=== PATIENT | male | born 1965 | race Caucasian/White ===

== ENCOUNTER 2020-06-15 10:25 | Outpatient (REF) | payer BC, SELFPAY ==
[2020-06-15 10:54] LABS: Estimated Average Glucose 120 mg/dL; Hemoglobin A1c % 5.8 %
[2020-06-15 11:42] LABS: Cholesterol 224 mg/dL; Glucose Fasting 115 mg/dL (60-99); HDL Cholesterol 57 mg/dL; LDL Cholesterol Calculated 140 mg/dl; Triglycerides 138 mg/dL
== END 2020-06-15 10:26 | disposition home or self-care (01) ==
LOC: HO.LNP 10:25
PROVIDERS: Visit Provider Internal Medicine
DX: E11.9 Type 2 diabetes mellitus without complications (principal)
CPT/HCPCS: 80061; 82947; 83036

== ENCOUNTER 2021-01-16 10:36 | Outpatient (REF) | payer BC, SELFPAY ==
[2021-01-16 10:40] LABS: MANUAL DIFF FLAG NO
[2021-01-16 10:58] LABS: Basophils Absolute Auto 0.1 X10*3/uL (0.0-0.2); Basophils Percent Auto 1.2 % (0-2); Eosinophils Absolute Auto 0.4 X10*3/uL (0.0-0.4); Eosinophils Percent Auto 5.2 % (0-4); Hematocrit 45.4 % (42.0-52.0); Hemoglobin 15.4 g/dl (14.0-18.0); Imm Gran Abs Auto 0.01 X10*3/uL (0.00-0.03); Imm Gran Pct Auto 0.1 % (0.0-0.4); Lymphocytes Absolute Auto 2.7 X10*3/uL (1.2-4.9); Lymphocytes Percent Auto 40.5 % (20-40); Mean Corpuscular HGB Conc 33.9 g/dl (31.0-36.0); Mean Corpuscular Hemoglobin 31.8 pg (27.0-33.0); Mean Corpuscular Volume 93.6 fL (80.0-98.0); Mean Platelet Volume 10.2 fL (9.4-12.4); Monocytes Absolute Auto 0.6 X10*3/uL (0.1-1.2); Monocytes Percent Auto 8.4 % (2-11); Neutrophils Absolute Auto 2.98 x10*3/uL (2.0-8.3); Neutrophils Percent Auto 44.6 % (45-73); Platelet Count 255 X10*3/uL (160-400); Red Blood Count 4.85 X10*6/uL (4.60-5.80); Red Cell Distribution Width 11.9 % (11.0-16.0); White Blood Count 6.7 X10*3/uL (4.8-10.8)
[2021-01-16 11:14] LABS: Estimated Average Glucose 157 mg/dL; Hemoglobin A1c % 7.1 %
[2021-01-16 11:23] LABS: Appearance Urine CLEAR; Color Urine YELLOW; Glucose Urine UA NEG (NEG); Leukocyte Esterase Urine NEG (NEG); Nitrite Urine NEG (NEG); Urine Blood NEG (NEG); Urine Ketones NEG (NEG); Urine Protein NEG (NEG-TRACE)
[2021-01-16 11:44] LABS: Alanine Aminotransferase 35 U/L (0-40); Albumin Level 4.3 g/dL (3.5-5.0); Alkaline Phosphatase 59 U/L (39-117); Anion Gap 13 (12-20); Aspartate Amino Transferase 29 U/L (5-37); Bilirubin Total 0.5 mg/dL (0.0-1.0); Blood Urea Nitrogen 11 mg/dL (9-16); Calcium 9.4 mg/dL (8.4-10.2); Carbon Dioxide 27 mmol/L (22-29); Chloride 108 mmol/L (96-108); Estimated Glomerular Filt Rate > 60; Glucose Fasting 135 mg/dL (60-99); Potassium 4.7 mmol/L (3.3-5.1); Sodium 143 mmol/L (135-145)
[2021-01-16 12:09] LABS: PSA,Total (Free>4and<10) 1.01 ng/mL (0.00-4.00)
[2021-01-16 12:16] LABS: Creatinine Urine 80.48 mg/dL; Microalbumin Urine < 5.0 mg/L
== END 2021-01-16 10:37 | disposition home or self-care (01) ==
LOC: HO.LNP 10:36
PROVIDERS: Visit Provider Internal Medicine
DX: Z00.00 Encounter for general adult medical examination without abnormal findings (principal); Z12.5 Encounter for screening for malignant neoplasm of prostate; D72.820 Lymphocytosis (symptomatic); E11.9 Type 2 diabetes mellitus without complications
CPT/HCPCS: 80053; 81003; 82043; 83036; 84153; 85025

== ENCOUNTER 2022-01-24 10:41 | Outpatient (REF) | payer BC, SELFPAY ==
[2022-01-24 10:44] LABS: MANUAL DIFF FLAG NO
[2022-01-24 11:08] LABS: Basophils Absolute Auto 0.1 X10*3/uL (0.0-0.2); Basophils Percent Auto 1.1 % (0-2); Eosinophils Absolute Auto 0.3 X10*3/uL (0.0-0.4); Eosinophils Percent Auto 4.3 % (0-4); Estimated Average Glucose 134 mg/dL; Hematocrit 45.3 % (42.0-52.0); Hemoglobin 15.6 g/dl (14.0-18.0); Hemoglobin A1c % 6.3 %; Imm Gran Abs Auto 0.02 X10*3/uL (0.00-0.03); Imm Gran Pct Auto 0.3 % (0.0-0.4); Lymphocytes Absolute Auto 2.3 X10*3/uL (1.2-4.9); Mean Corpuscular HGB Conc 34.4 g/dl (31.0-36.0); Mean Corpuscular Hemoglobin 33.3 pg (27.0-33.0); Mean Corpuscular Volume 96.6 fL (80.0-98.0); Mean Platelet Volume 10.3 fL (9.4-12.4); Monocytes Absolute Auto 0.6 X10*3/uL (0.1-1.2); Monocytes Percent Auto 9.3 % (2-11); Neutrophils Absolute Auto 2.9 x10*3/uL (2.0-8.3); Platelet Count 202 X10*3/uL (160-400); Red Blood Count 4.69 X10*6/uL (4.60-5.80); Red Cell Distribution Width 12.4 % (11.0-16.0); White Blood Count 6.1 X10*3/uL (4.8-10.8)
[2022-01-24 11:10] LABS: Appearance Urine Clear; Color Urine Yellow; Glucose Urine UA Negative (Negative); Leukocyte Esterase Urine Negative (Negative); Nitrite Urine Negative (Negative); PH 5.5 (5.0-9.0); Urine Blood Negative (Negative); Urine Ketones Negative (Negative); Urine Protein Negative (Neg-Trace)
[2022-01-24 11:13] LABS: Bacteria Urine None Seen (None Seen); Hyaline Casts Urine 0-2 /LPF (0-2); RBC Urine 0-2 /HPF (0-2); Squamous Epithelial Cell Urine 0-2 /HPF (0-2); WBC Urine 0-5 /HPF (0-5)
[2022-01-24 11:23] LABS: Alanine Aminotransferase 123 U/L (0-40); Albumin Level 4.6 g/dL (3.5-5.0); Alkaline Phosphatase 65 U/L (39-117); Anion Gap 17 (12-20); Aspartate Amino Transferase 135 U/L (5-37); Bilirubin Total 1.2 mg/dL (0.0-1.0); Blood Urea Nitrogen 12 mg/dL (9-16); Calcium 9.4 mg/dL (8.4-10.2); Carbon Dioxide 24 mmol/L (22-29); Chloride 104 mmol/L (96-108); Estimated Glomerular Filt Rate > 60; Glucose Fasting 159 mg/dL (60-99); Potassium 4.7 mmol/L (3.3-5.1); Sodium 140 mmol/L (135-145); Total Protein 7.6 g/dL (6.5-8.0)
[2022-01-24 11:38] LABS: PSA,Total (Free>4and<10) 1.01 ng/mL (0.00-4.00)
[2022-01-24 12:07] LABS: Creatinine Urine 42.94 mg/dL; Microalbumin Urine < 5.0 mg/L
== END 2022-01-24 10:42 | disposition home or self-care (01) ==
LOC: HO.LNP 10:41
PROVIDERS: Visit Provider Internal Medicine
DX: Z00.00 Encounter for general adult medical examination without abnormal findings (principal); D72.820 Lymphocytosis (symptomatic); E11.9 Type 2 diabetes mellitus without complications; Z12.5 Encounter for screening for malignant neoplasm of prostate
CPT/HCPCS: 80053; 81001; 82043; 83036; 84153; 85025

== ENCOUNTER 2022-02-25 09:08 | Outpatient (REF) | payer BC, SELFPAY | END 2022-02-25 09:09 | disposition home or self-care (01) | LOC: HO.HOSX 09:08 | PROVIDERS: Visit Provider Orthopaedic Surgery | DX: Z13.89 Encounter for screening for other disorder (principal) ==

== ENCOUNTER 2022-05-13 16:09 | Outpatient (REF) | payer BC, SELFPAY ==
--- NOTE | ~2022-05-13 | US_ITS ---
EXAMINATION: US ABDOMEN COMPLETE CLINICAL INFORMATION: Hepatomegaly. COMPARISON: None TECHNIQUE: Real-time imaging of the abdominal viscera. FINDINGS: PANCREAS: Normal. ABDOMINAL AORTA: The proximal, mid, and distal segments are normal in caliber. INFERIOR VENA CAVA: Visualized portions are normal. LIVER: The liver is enlarged. The liver contour is normal. There is increased hepatic echogenicity. There is no intrahepatic biliary duct dilatation seen. There is a right hepatic lobe cyst measuring 2.0 x 1.0 x 1.5 cm and a left hepatic lobe cyst measuring 1.0 x 0.7 x 0.8 cm. GALLBLADDER: The gallbladder is contracted. COMMON BILE DUCT: Normal in caliber measuring 0.5 cm in diameter. RIGHT KIDNEY: Normal. No hydronephrosis. No renal calculi or focal parenchymal lesions. The kidney measures 11.8 cm in maximum dimension. LEFT KIDNEY: Normal. No hydronephrosis. No renal calculi or focal parenchymal lesions. The kidney measures 9.6 cm in maximum dimension. SPLEEN: Normal. The spleen measures 9.6 cm in maximum dimension. FREE FLUID: None. US/US abdomen complete IMPRESSION: 1. Enlarged liver with increased hepatic echogenicity. 2. Right and left hepatic lobe cysts. 3. Contracted gallbladder.
== END 2022-05-13 16:10 | disposition home or self-care (01) ==
LOC: HO.US 16:09
PROVIDERS: PCP Internal Medicine; Visit Provider Internal Medicine
DX: R16.0 Hepatomegaly, not elsewhere classified (principal); R79.89 Other specified abnormal findings of blood chemistry
CPT/HCPCS: 76700

== ENCOUNTER 2022-05-17 11:19 | Outpatient (REF) | payer BC, SELFPAY ==
[2022-05-17 12:27] LABS: Alanine Aminotransferase 87 U/L (0-40); Albumin Level 4.1 g/dL (3.5-5.0); Alkaline Phosphatase 65 U/L (39-117); Aspartate Amino Transferase 68 U/L (5-37); Bilirubin Direct 0.2 mg/dL (0.0-0.5); Bilirubin Total 0.7 mg/dL (0.0-1.0); Total Protein 6.7 g/dL (6.5-8.0)
== END 2022-05-17 11:20 | disposition home or self-care (01) ==
LOC: HO.LNP 11:19
PROVIDERS: Visit Provider Internal Medicine
DX: R74.8 Abnormal levels of other serum enzymes (principal)
CPT/HCPCS: 80076

== ENCOUNTER 2022-06-11 09:08 | Outpatient (REF) | payer BC, SELFPAY ==
--- NOTE | ~2022-06-11 | US_ITS ---
EXAMINATION: US ABDOMEN LIMITED WITH LIVER ELASTOGRAPHY CLINICAL INFORMATION: Hepatomegaly. COMPARISON: Abdominal ultrasound dated 05/13/2022. TECHNIQUE: Real-time imaging of the abdominal viscera. Noninvasive ultrasound liver fibrosis assessment is performed using Flaco ElastPQ point quantification shear wave elastography (2D-SWE) with a C5-2 MHz transducer. Multiple elastography samples are obtained. FINDINGS: LIVER: Within the right hepatic lobe anteriorly, a 2.0 x 1.3 x 1.4 cm mildly complex cyst is seen, with fine septation. Within the left hepatic lobe, a 0.9 cm benign, simple cyst is seen. The liver demonstrates normal size, contour and generally increased echogenicity. No focal lesion or intrahepatic biliary duct dilatation. The right lobe measures 19.7 cm in length. The left lobe measures 11.3 cm in length. Portal flow is towards the liver (hepatopetal). Shear wave liver elastography median stiffness is 2.12 m/s (reference: normal median stiffness is 1.3 m/s or less). IQR/median stiffness to assess sampling precision is 0.04 (reference: good quality data set is IQR/median stiffness of 0.15 or less). FREE FLUID: None demonstrated. US/US abdomen oconnell w elastography IMPRESSION: 1. There is generalized increase in hepatic echotexture, consistent with fatty infiltration or hepatocellular disease. Please correlate clinically. No focal hepatic mass or intrahepatic biliary dilatation is seen. 2. Stable hepatic cysts are redemonstrated, as detailed. 3. Liver elastography: Measuremensts are consistent with compensated advanced chronic liver disease. REFERENCE: Society of Radiologists in Ultrasound Liver Stiffness Thresholds (2020): LIVER STIFFNESS THRESHOLDS: *Liver Stiffness equal or less than 1.3 m/s: High probability of being normal. *Liver Stiffness less than 1.7 m/s: In the absence of other known clinical signs, rules out compensated advanced chronic liver disease. *Liver Stiffness 1.7-2.1 m/s: Suggestive of compensated advanced chronic liver disease but need further test for confirmation. *Liver Stiffness over 2.1 m/s: Rules in compensated advanced chronic liver disease. *Liver Stiffness over 2.4 m/s: Suggestive of clinically significant portal hypertension. QUALITY OF DATA SET: *IQR/Median value equal or less than 0.15 implies a quality data set. *IQR/Median value over 0.15 implies a poor quality data set. SIGNIFICANT CHANGE FROM PRIOR EXAM: Significant change if liver stiffness measurement is 10% or greater from prior exam. OTHER CONSIDERATIONS: The stage of liver fibrosis may be overestimated in the setting of acute hepatitis, liver inflammation, elevated liver function tests, hepatic vascular congestion, obstructive cholestasis, non-fasting state, and infiltrative diseases such as amyloidosis and lymphoma. In some patients with NAFLD, the liver stiffness thresholds for compensated advanced chronic liver disease may be lower. In causes other than viral hepatitis and NAFLD, liver stiffness thresholds are not well established.
== END 2022-06-11 09:09 | disposition home or self-care (01) ==
LOC: HO.US 09:08
PROVIDERS: PCP Internal Medicine; Visit Provider Internal Medicine
DX: R16.0 Hepatomegaly, not elsewhere classified (principal)
CPT/HCPCS: 76705; 76981

== ENCOUNTER 2022-08-06 10:49 | Outpatient (REF) | payer BC, SELFPAY ==
[2022-08-06 11:20] LABS: Alanine Aminotransferase 67 U/L (0-40); Albumin Level 4.4 g/dL (3.5-5.0); Alkaline Phosphatase 79 U/L (39-117); Aspartate Amino Transferase 37 U/L (5-37); Bilirubin Direct 0.3 mg/dL (0.0-0.5); Bilirubin Total 0.9 mg/dL (0.0-1.0); Total Protein 7.3 g/dL (6.5-8.0)
== END 2022-08-06 10:50 | disposition home or self-care (01) ==
LOC: HO.LNP 10:49
PROVIDERS: Visit Provider Internal Medicine
DX: R74.8 Abnormal levels of other serum enzymes (principal)
CPT/HCPCS: 80076

== ENCOUNTER 2022-10-29 11:49 | Outpatient (REF) | payer BC, SELFPAY ==
[2022-10-29 12:41] LABS: Alanine Aminotransferase 85 U/L (0-40); Albumin Level 4.2 g/dL (3.5-5.0); Alkaline Phosphatase 55 U/L (39-117); Aspartate Amino Transferase 58 U/L (5-37); Bilirubin Direct 0.2 mg/dL (0.0-0.5); Bilirubin Total 0.6 mg/dL (0.0-1.0); Total Protein 7.3 g/dL (6.5-8.0)
== END 2022-10-29 11:50 | disposition home or self-care (01) ==
LOC: HO.LNP 11:49
PROVIDERS: Visit Provider Internal Medicine
DX: N52.9 Male erectile dysfunction, unspecified (principal)
CPT/HCPCS: 80076

== ENCOUNTER 2022-12-09 11:24 | Outpatient (REF) | payer BC, SELFPAY ==
[2022-12-09 11:45] LABS: Estimated Average Glucose 272 mg/dL; Hemoglobin A1c % 11.1 % (<6.0)
[2022-12-09 12:21] LABS: Glucose Fasting 309 mg/dL (60-99)
[2022-12-10 05:29] LABS: HBS Num1 0.27 mIU/mL (0-7.99); HBc Num1 0.09 S/CO (0.00-0.79); HBsAGNum1 0.31 S/CO (0.00-0.99); Hepatitis A Antibody IgM 0.13 Index (0-0.79); Hepatitis B Core Antibody Nonreactive (Nonreactive); Hepatitis B Surface Antigen Negative (Negative); ~HepC Num1 0.06 S/CO (0.00-0.79); ~Hepatitis A Antibody IgM Nonreactive (Nonreactive); ~Hepatitis B Surface Antibody NONREACTIVE (Nonreactive); ~Hepatitis C Antibody Nonreactive (Nonreactive)
== END 2022-12-09 11:25 | disposition home or self-care (01) ==
LOC: HO.LNP 11:24
PROVIDERS: Visit Provider Internal Medicine
DX: E11.9 Type 2 diabetes mellitus without complications (principal); R74.8 Abnormal levels of other serum enzymes
CPT/HCPCS: 82947; 83036; 86704; 86706; 86709; 86803; 87340

== ENCOUNTER 2022-12-18 15:13 | Outpatient (REF) | payer BC, SELFPAY ==
[2022-12-18 15:32] LABS: MANUAL DIFF FLAG NO
[2022-12-18 15:41] LABS: Basophils Absolute Auto 0.1 X10*3/uL (0.0-0.2); Basophils Percent Auto 0.8 % (0-2); Eosinophils Absolute Auto 0.1 X10*3/uL (0.0-0.4); Eosinophils Percent Auto 1.5 % (0-4); Hematocrit 44.1 % (42.0-52.0); Hemoglobin 15.3 g/dl (14.0-18.0); Imm Gran Abs Auto 0.03 X10*3/uL (0.00-0.03); Imm Gran Pct Auto 0.3 % (0.0-0.4); Lymphocytes Absolute Auto 3.7 X10*3/uL (1.2-4.9); Lymphocytes Percent Auto 42.8 % (20-40); Mean Corpuscular HGB Conc 34.7 g/dl (31.0-36.0); Mean Corpuscular Hemoglobin 32.1 pg (27.0-33.0); Mean Corpuscular Volume 92.5 fL (80.0-98.0); Mean Platelet Volume 9.5 fL (9.4-12.4); Monocytes Absolute Auto 0.6 X10*3/uL (0.1-1.2); Monocytes Percent Auto 6.4 % (2-11); Neutrophils Absolute Auto 4.2 x10*3/uL (2.0-8.3); Neutrophils Percent Auto 48.2 % (45-73); Platelet Count 220 X10*3/uL (160-400); Red Blood Count 4.77 X10*6/uL (4.60-5.80); Red Cell Distribution Width 12.2 % (11.0-16.0); White Blood Count 8.6 X10*3/uL (4.8-10.8)
[2022-12-18 15:44] LABS: INTERNATIONAL NORM RATIO 0.9 (0.9-1.1)
[2022-12-18 17:00] LABS: Alanine Aminotransferase 95 U/L (0-40); Alkaline Phosphatase 74 U/L (39-117); Aspartate Amino Transferase 65 U/L (5-37); Bilirubin Direct 0.2 mg/dL (0.0-0.5); Bilirubin Total 0.8 mg/dL (0.0-1.0); Iron 114 mcg/dL (45-160); Percent Iron Saturation 33 % (15-50); Total Iron Binding Capacity 349 mcg/dL (228-428); Total Protein 8.6 g/dL (6.5-8.0); Unsaturated Iron Binding 235 ug/dL
[2022-12-18 17:06] LABS: Ferritin 338 ng/mL (20-250)
[2022-12-23 13:59] LABS: Anti Nuclear Antibody Screen NEGATIVE (NEGATIVE)
[2022-12-24 09:58] LABS: Alpha 1 Anti-trypsin 139 mg/dL (83-199)
[2022-12-24 14:43] LABS: Mitochondrial Antibodies NEGATIVE (NEGATIVE)
[2022-12-24 22:18] LABS: FIB-ALT 81 U/L (9-46); FIB-Alpha-2-Macroglobulin 277 mg/dL (106-279); FIB-Apolipoprotein A1 173 mg/dL (94-176); FIB-GGT 43 U/L (3-85); FIB-Haptoglobin 148 mg/dL (43-212); FIB-Total Bilirubin 0.7 mg/dL (0.2-1.2); Liver Fibrosis Score 0.41; Liver Fibrosis Stage F1-F2; Nec Inflam Act Grade A2; Nec Inflam Act Score 0.52
[2022-12-26 00:14] LABS: Smooth Muscle Antibody <20 U (<20)
== END 2022-12-18 15:14 | disposition home or self-care (01) ==
LOC: HO.LAB 15:13
PROVIDERS: PCP Internal Medicine; Visit Provider Internal Medicine
DX: K76.0 Fatty (change of) liver, not elsewhere classified (principal); R79.89 Other specified abnormal findings of blood chemistry
CPT/HCPCS: 36415; 80076; 81596; 82103; 82728; 83540; 85025; 85610; 86015; 86038; 86381

== ENCOUNTER 2023-02-04 10:42 | Outpatient (REF) | payer BC, SELFPAY ==
[2023-02-04 11:07] LABS: Appearance Urine Clear; Color Urine Yellow; Glucose Urine UA Negative (Negative); Leukocyte Esterase Urine Negative (Negative); Nitrite Urine Negative (Negative); PH 5.5 (5.0-9.0); Urine Blood Negative (Negative); Urine Ketones Negative (Negative); Urine Protein Negative (Neg-Trace)
[2023-02-04 11:09] LABS: Basophils Absolute Auto 0.1 X10*3/uL (0.0-0.2); Basophils Percent Auto 0.7 % (0-2); Eosinophils Absolute Auto 0.2 X10*3/uL (0.0-0.4); Eosinophils Percent Auto 2.4 % (0-4); Hematocrit 43.6 % (42.0-52.0); Hemoglobin 14.3 g/dl (14.0-18.0); Imm Gran Abs Auto 0.02 X10*3/uL (0.00-0.03); Imm Gran Pct Auto 0.2 % (0.0-0.4); Lymphocytes Absolute Auto 5.4 X10*3/uL (1.2-4.9); Lymphocytes Percent Auto 59.1 % (20-40); MANUAL DIFF FLAG SCAN; Mean Corpuscular HGB Conc 32.8 g/dl (31.0-36.0); Mean Corpuscular Hemoglobin 31.2 pg (27.0-33.0); Mean Platelet Volume 10.5 fL (9.4-12.4); Monocytes Absolute Auto 0.6 X10*3/uL (0.1-1.2); Monocytes Percent Auto 6.1 % (2-11); Neutrophils Absolute Auto 2.9 x10*3/uL (2.0-8.3); Platelet Count 181 X10*3/uL (160-400); Red Blood Count 4.59 X10*6/uL (4.60-5.80); Red Cell Distribution Width 12.3 % (11.0-16.0); SCAN SMEAR FLAG 1; White Blood Count 9.2 X10*3/uL (4.8-10.8)
[2023-02-04 11:11] LABS: Bacteria Urine None Seen (None Seen); Hyaline Casts Urine 0-2 /LPF (0-2); RBC Urine 0-2 /HPF (0-2); Squamous Epithelial Cell Urine 0-2 /HPF (0-2); WBC Urine 0-5 /HPF (0-5)
[2023-02-04 11:29] LABS: Alanine Aminotransferase 28 U/L (0-40); Albumin Level 4.5 g/dL (3.5-5.0); Alkaline Phosphatase 44 U/L (39-117); Anion Gap 11 (12-20); Aspartate Amino Transferase 30 U/L (5-37); Bilirubin Total 1.2 mg/dL (0.0-1.0); Blood Urea Nitrogen 11 mg/dL (9-16); Calcium 9.9 mg/dL (8.4-10.2); Carbon Dioxide 29 mmol/L (22-29); Chloride 104 mmol/L (96-108); Cholesterol 211 mg/dL (<200); Estimated Glomerular Filt Rate > 60; Glucose Fasting 97 mg/dL (60-99); HDL Cholesterol 50 mg/dL (>40); LDL Cholesterol Calculated 141 mg/dL (<100); Potassium 4.2 mmol/L (3.3-5.1); Sodium 140 mmol/L (135-145); Total Protein 7.5 g/dL (6.5-8.0); Triglycerides 100 mg/dL (<150)
[2023-02-04 11:41] LABS: PSA,Total (Free>4and<10) 1.21 ng/mL (0.00-4.00)
[2023-02-04 11:47] LABS: Creatinine Urine 74.51 mg/dL; Microalbumin Urine < 5.0 mg/L
[2023-02-04 11:50] LABS: Neutrophils Percent Auto 31.5 % (45-73); SLIDE REVIEW VERIFIED
== END 2023-02-04 10:43 | disposition home or self-care (01) ==
LOC: HO.LNP 10:42
PROVIDERS: Visit Provider Internal Medicine
DX: Z00.00 Encounter for general adult medical examination without abnormal findings (principal); Z12.5 Encounter for screening for malignant neoplasm of prostate; E11.9 Type 2 diabetes mellitus without complications; D72.820 Lymphocytosis (symptomatic)
CPT/HCPCS: 80053; 80061; 81001; 82043; 82570; 84153; 85025

== ENCOUNTER 2023-03-24 10:53 | Outpatient (REF) | payer BC, SELFPAY ==
[2023-03-24 11:06] LABS: MANUAL DIFF FLAG NO
[2023-03-24 11:08] LABS: Basophils Absolute Auto 0.1 X10*3/uL (0.0-0.2); Basophils Percent Auto 0.7 % (0-2); Eosinophils Absolute Auto 0.3 X10*3/uL (0.0-0.4); Eosinophils Percent Auto 2.7 % (0-4); Hematocrit 44.2 % (42.0-52.0); Imm Gran Abs Auto 0.04 X10*3/uL (0.00-0.03); Imm Gran Pct Auto 0.4 % (0.0-0.4); Lymphocytes Absolute Auto 4.4 X10*3/uL (1.2-4.9); Lymphocytes Percent Auto 42.4 % (20-40); Mean Corpuscular HGB Conc 33.9 g/dl (31.0-36.0); Mean Corpuscular Hemoglobin 31.8 pg (27.0-33.0); Mean Corpuscular Volume 93.6 fL (80.0-98.0); Mean Platelet Volume 10.5 fL (9.4-12.4); Monocytes Absolute Auto 0.8 X10*3/uL (0.1-1.2); Neutrophils Absolute Auto 4.8 x10*3/uL (2.0-8.3); Neutrophils Percent Auto 45.8 % (45-73); Platelet Count 205 X10*3/uL (160-400); Red Blood Count 4.72 X10*6/uL (4.60-5.80); Red Cell Distribution Width 12.8 % (11.0-16.0); White Blood Count 10.5 X10*3/uL (4.8-10.8)
== END 2023-03-24 10:54 | disposition home or self-care (01) ==
LOC: HO.LNP 10:53
PROVIDERS: Visit Provider Internal Medicine
DX: D72.820 Lymphocytosis (symptomatic) (principal)
CPT/HCPCS: 85025

== ENCOUNTER 2023-07-11 15:38 | Outpatient (REF) | payer BC, SELFPAY ==
[2023-07-11 16:03] LABS: Alanine Aminotransferase 107 U/L (0-40); Albumin Level 4.6 g/dL (3.5-5.0); Alkaline Phosphatase 52 U/L (39-117); Aspartate Amino Transferase 74 U/L (5-37); Bilirubin Direct 0.2 mg/dL (0.0-0.5); Bilirubin Total 0.6 mg/dL (0.0-1.0); Total Protein 7.7 g/dL (6.5-8.0)
== END 2023-07-11 15:39 | disposition home or self-care (01) ==
LOC: HO.LNP 15:38
PROVIDERS: Visit Provider Internal Medicine
DX: R79.89 Other specified abnormal findings of blood chemistry (principal)
CPT/HCPCS: 80076

== ENCOUNTER 2023-09-12 09:55 | Outpatient (REF) | payer BC, SELFPAY ==
[2023-09-12 10:59] LABS: Alanine Aminotransferase 40 U/L (0-40); Albumin Level 4.5 g/dL (3.5-5.0); Alkaline Phosphatase 51 U/L (39-117); Aspartate Amino Transferase 46 U/L (5-37); Bilirubin Direct 0.3 mg/dL (0.0-0.5); Bilirubin Total 0.9 mg/dL (0.0-1.0); Total Protein 7.3 g/dL (6.5-8.0)
== END 2023-09-12 09:56 | disposition home or self-care (01) ==
LOC: HO.LNP 09:55
PROVIDERS: Visit Provider Internal Medicine
DX: R79.89 Other specified abnormal findings of blood chemistry (principal)
CPT/HCPCS: 80076

== ENCOUNTER 2024-04-19 07:30 | Outpatient (REF) | payer BC, SELFPAY ==
[2024-04-19 11:36] LABS: Basophils Absolute Auto 0.1 X10*3/uL (0.0-0.2); Basophils Percent Auto 0.7 % (0-2); Eosinophils Absolute Auto 0.3 X10*3/uL (0.0-0.4); Eosinophils Percent Auto 2.7 % (0-4); Hematocrit 44.7 % (42.0-52.0); Hemoglobin 14.8 g/dl (14.0-18.0); Imm Gran Abs Auto 0.03 X10*3/uL (0.00-0.03); Imm Gran Pct Auto 0.3 % (0.0-0.4); Lymphocytes Percent Auto 66.9 % (20-40); MANUAL DIFF FLAG SCAN; Mean Corpuscular HGB Conc 33.1 g/dl (31.0-36.0); Mean Corpuscular Hemoglobin 31.8 pg (27.0-33.0); Mean Corpuscular Volume 95.9 fL (80.0-98.0); Mean Platelet Volume 10.2 fL (9.4-12.4); Monocytes Absolute Auto 0.6 X10*3/uL (0.1-1.2); Monocytes Percent Auto 4.9 % (2-11); Neutrophils Absolute Auto 2.9 x10*3/uL (2.0-8.3); Neutrophils Percent Auto 24.5 % (45-73); Platelet Count 205 X10*3/uL (160-400); Red Blood Count 4.66 X10*6/uL (4.60-5.80); Red Cell Distribution Width 13.1 % (11.0-16.0); SCAN SMEAR FLAG 1; White Blood Count 11.8 X10*3/uL (4.8-10.8)
[2024-04-19 11:37] LABS: Lymphocytes Absolute Auto 7.9 X10*3/uL (1.2-4.9)
[2024-04-19 11:38] LABS: Appearance Urine Clear; Color Urine Yellow; Glucose Urine UA Negative (Negative); Leukocyte Esterase Urine Negative (Negative); Nitrite Urine Negative (Negative); PH 5.5 (5.0-9.0); Specific Gravity - Urine 1.025 (1.005-1.025); Urine Blood Negative (Negative); Urine Ketones Negative (Negative); Urine Protein Negative (Neg-Trace)
[2024-04-19 12:05] LABS: Estimated Average Glucose 114 mg/dL; Hemoglobin A1C 148.0223 umol/L; Hemoglobin A1c % 5.6 % (<6.0); Total Hemoglobin (HGBA1C) 3883.5507 umol/L
[2024-04-19 12:19] LABS: SLIDE REVIEW VERIFIED
--- OUTSIDE RECORDS SUMMARY | 2024-04-19 12:24 | XMS_ITS ---
Author Name [facility] Organization Unknown Assessment and Plan ID Update Date Source Alert Text [facility] - [id number] 95 01/05/2022 [facility] - [id number] COVID Vaccination: This patient has received the MOD, COVID-19, mRNA, Bivalent, 0.5 or 0.25mL vaccination on 01/05/2022 with lot number [id number] at [facility] [address] [place] [address].
[2024-04-19 12:27] LABS: Alanine Aminotransferase 97 U/L (0-40); Albumin Level 4.4 g/dL (3.5-5.0); Alkaline Phosphatase 46 U/L (39-117); Anion Gap 13 (12-20); Aspartate Amino Transferase 57 U/L (5-37); Bilirubin Total 0.8 mg/dL (0.0-1.0); Blood Urea Nitrogen 19 mg/dL (9-16); Carbon Dioxide 26 mmol/L (22-29); Chloride 105 mmol/L (96-108); Cholesterol 185 mg/dL (<200); Estimated Glomerular Filt Rate > 60; Glucose Fasting 122 mg/dL (60-99); HDL Cholesterol 54 mg/dL (>40); LDL Cholesterol Calculated 112 mg/dL (<100); Potassium 4.1 mmol/L (3.3-5.1); Sodium 140 mmol/L (135-145); Total Protein 7.6 g/dL (6.5-8.0); Triglycerides 98 mg/dL (<150)
[2024-04-19 12:29] LABS: PSA,Total (Free>4and<10) 0.82 ng/mL (0.00-4.00)
[2024-04-19 12:50] LABS: Creatinine Urine 94.33 mg/dL; Microalbumin Urine < 5.0 mg/L
== END 2024-04-19 07:31 | disposition home or self-care (01) ==
LOC: HO.LNP 07:30
PROVIDERS: Visit Provider Internal Medicine
DX: Z00.00 Encounter for general adult medical examination without abnormal findings (principal); E11.9 Type 2 diabetes mellitus without complications; D72.820 Lymphocytosis (symptomatic); Z12.5 Encounter for screening for malignant neoplasm of prostate
CPT/HCPCS: 80053; 80061; 81003; 82043; 82570; 83036; 84153; 85025

== ENCOUNTER 2024-04-26 12:56 | Outpatient (REF) | payer BC, SELFPAY ==
[2024-04-26 13:02] LABS: Basophils Absolute Auto 0.1 X10*3/uL (0.0-0.2); Basophils Percent Auto 0.6 % (0-2); Eosinophils Absolute Auto 0.3 X10*3/uL (0.0-0.4); Eosinophils Percent Auto 3.1 % (0-4); Hematocrit 41.1 % (42.0-52.0); Hemoglobin 13.7 g/dl (14.0-18.0); Imm Gran Abs Auto 0.02 X10*3/uL (0.00-0.03); Imm Gran Pct Auto 0.2 % (0.0-0.4); Lymphocytes Absolute Auto 6.6 X10*3/uL (1.2-4.9); Lymphocytes Percent Auto 61.3 % (20-40); MANUAL DIFF FLAG SCAN; Mean Corpuscular HGB Conc 33.3 g/dl (31.0-36.0); Mean Platelet Volume 10.1 fL (9.4-12.4); Monocytes Absolute Auto 0.6 X10*3/uL (0.1-1.2); Monocytes Percent Auto 5.9 % (2-11); Neutrophils Absolute Auto 3.1 x10*3/uL (2.0-8.3); Neutrophils Percent Auto 28.9 % (45-73); Platelet Count 216 X10*3/uL (160-400); Red Blood Count 4.28 X10*6/uL (4.60-5.80); Red Cell Distribution Width 12.8 % (11.0-16.0); SCAN SMEAR FLAG 1; White Blood Count 10.8 X10*3/uL (4.8-10.8)
[2024-04-26 13:14] LABS: Albumin Level 4.6 g/dL (3.5-5.0); Alkaline Phosphatase 56 U/L (39-117); Aspartate Amino Transferase 68 U/L (5-37); Bilirubin Direct 0.2 mg/dL (0.0-0.5); Bilirubin Total 0.4 mg/dL (0.0-1.0); Total Protein 7.8 g/dL (6.5-8.0)
[2024-04-26 13:23] LABS: SLIDE REVIEW VERIFIED
[2024-04-26 13:28] LABS: Alanine Aminotransferase 76 U/L (0-40)
--- OUTSIDE RECORDS SUMMARY | 2024-04-26 14:00 | XMS_ITS ---
Author Organization [facility] Address [address] [place] [address] Care Team Providers Care Legal Billing Coordinator Name Role Phone Carmelo Phelps MD Primary Care Provider Aristeo Fleming Unavailable [phone] ALLERGIES No Known Allergies RESULTS Component Value Reference Range Notes Prothrombin Time INR Reviewed date:12/18/2022 04:56:14 PM Interpretation: Performing Lab:[facility], [address] [place] [phone] Notes/Report: Prothrombin Time 11.0 11.1-13.3 SEC INTERNATIONAL NORM RATIO 0.9 0.9-1.1 INTERNATIONAL NORMALIZED RATIO (INR) REFERENCE RANGES Reference Range For patients not on anticoagulant therapy: 0.9 - 1.1 INR ranges for oral anticoagulant therapy: For prevention and treatment of venous thrombosis and pulmonary embolism: 2.0 - 3.0 For acute myocardial infarction with aspirin therapy: 2.0 - 3.0 For acute myocardial infarction without aspirin therapy: 3.0 - 4.0 For patients with mechanical prosthetic heart valves: 2.5 - 3.5 Ferritin Reviewed date:12/18/2022 10:20:08 PM Interpretation: Performing Lab:[facility], [address] [place] [phone] Notes/Report: Ferritin 338 20-250 ng/mL Alpha 1 Anti-trypsin Reviewed date:12/25/2022 09:21:20 PM Interpretation: Performing Lab:[facility], [address] [place] [phone] Notes/Report: Alpha 1 Anti-trypsin 139 83-199 mg/dL THIS TEST WAS PERFORMED AT: [facility] [address] [place] [phone] BJORN MCCORMICK MD Liver Fibrosis Pnl Reviewed date:12/25/2022 09:21:54 PM Interpretation: Performing Lab:[facility], [address] [place] [phone] Notes/Report: Liver Fibrosis Score 0.41 Liver Fibrosis Stage F1-F2 Liver Fibrosis Interpretation SEE NOTE minimal fibrosis Fibro Test Score (f) Metavir Score f>=0 and f<=0.21 : F0 (no fibrosis) f>0.21 and f<=0.27 : F0-F1 (no fibrosis) f>0.27 and f<=0.31 : F1 (minimal fibrosis) f>0.31 and f<=0.48 : F1-F2 (minimal fibrosis) f>0.48 and f<=0.58 : F2 (moderate fibrosis) f>0.58 and f<=0.72 : F3 (advanced fibrosis) f>0.72 and f<=0.74 : F3-F4 (advanced fibrosis) f>0.74 and f<=1.00 : F4 (severe fibrosis) Nec Inflam Act Score 0.52 Nec Inflam Act Grade A2 Nec Inflam Act Interpretation SEE NOTE significant activity ActiTest Score (a) Metavir Score a>=0 and a<=0.17 : A0 (no activity) a>0.17 and a<=0.29 : A0-A1 (no activity) a>0.29 and a<=0.36 : A1 (minimal activity) a>0.36 and a<=0.52 : A1-A2 (minimal activity) a>0.52 and a<=0.60 : A2 (significant activity) a>0.60 and a<=0.62 : A2-A3 (significant activity) a>0.62 and a<=1.00 : A3 (severe activity) FFO-Uzkeg-8-Macroglobulin 277 106-279 mg/dL FIB-Haptoglobin 148 43-212 mg/dL FIB-Apolipoprotein A1 173 94-176 mg/dL FIB-Total Bilirubin 0.7 0.2-1.2 mg/dL FIB-GGT 43 3-85 U/L FIB-ALT 81 9-46 U/L Reference ID [id number] Footnote SEE NOTE The reliability of results is dependent on compliance with the preanalytical and analytical conditions recommended by [employer]. The tests have to be deferred for: acute hemolysis, acute hepatitis, acute inflammation, extra hepatic cholestasis. The advice of a specialist should be sought for interpretation in chronic hemolysis and Gilbert's syndrome. The test interpretation is not validated in liver transplant patients. Isolated extreme values of one of the components should lead to caution in interpreting the results. In case of discordance between a biopsy result and a test, it is recommended to seek the advice of a specialist. The causes of these discordances could be due to a flaw of the test or to a flaw in the biopsy: i.e. a liver biopsy has a 33% variability rate for one fibrosis stage. FibroTest is interpretable for chronic hepatitis B and C, alcoholic and non alcoholic steatosis. ActiTest is interpretable for chronic hepatitis B and C. The performance characteristics have been determined by [facility]. It has not been cleared or approved by the U.S. Food and Drug Administration. Performance characteristics refer to the analytical performance of the test. [employer], [employer], the associated logo, Garmor and all associated [employer] agrawal are the registered trademarks of [employer]. All third alliance party agrawal - (R) and (TM) - are the property of their respective owners. (C) [id number] [employer]. All rights reserved. THIS TEST WAS PERFORMED AT: [employer] [facility] [address] [place] [address] CATHY ISRAEL MD,PHD,ELIAS Mitochondrial Antibody Reviewed date:12/26/2022 01:07:04 PM Interpretation: Performing Lab:[address] [phone] Notes/Report: Mitochondrial Antibodies NEGATIVE NEGATIVE THIS TEST WAS PERFORMED AT: [employer] [address] [phone] BJORN MCCOMRICK MD Mitochondrial Ab Titer TNP Smooth Muscle Antibody Reviewed date:12/26/2022 01:06:55 PM Interpretation: Performing Lab:[address] [phone] Notes/Report: Smooth Muscle Antibody <20 <20 U Reference Range: <20 U: Negative >or=20 U: Positive Antibodies recognizing actin are the main component of smooth muscle antibodies associated with auto- immune liver disease. Actin antibodies are found in approximately 75% of patients with autoimmune hepatitis (AIH) type 1, approximately 65% of patients with autoimmune cholangitis, approximately 30% of patients with primary biliary cirrhosis and approximately 2% of healthy controls. High values are closely correlated with AIH type 1. THIS TEST WAS PERFORMED AT: [employer]/[address] JOANNE CUNNINGHAM MD,PHD REASON FOR VISIT Patient presents today for an enlarged liver. MEDICATIONS Medication SIG (Take, Route, Frequency, Duration) Notes Start Date End Date Status Januvia 50 MG TAKE 1 TABLET BY MOUTH ONCE DAILY DIRECTED Oral for 30 E119,Unavailable Active Fish Oil 1000 MG 1 capsule Orally Onc e a day Active Vitamin B + C Complex - as directed Orally Active Vitamin D 50 MCG (2000 UT) 1 tablet Orally Once a day for 30 day(s) Active metFORMIN HCl ER 750 MG TAKE 1 TABLET BY MOUTH EVERY DAY WITH THE EVENING MEAL Oral for 30 E119,Unavailable Active Tadalafil 20 MG TAKE 1/2 TABLET BY MOUTH ONCE A DAY NEEDED. Oral for 60 Active SOCIAL HISTORY Sex Assigned At : Social History Observation Description Sex Assigned At Unknown Alcohol Screen Question Answer Notes Did you have a drink contain ing alcohol in the past year? Yes How often did you have a dri nk containing alcohol in the past year? 4 or more times a week (4 points) How many drinks did you have on a typical day when you were drinking in the past year? 5 or 6 drinks (2 points) How often did you have 6 or more drinks on one occasion in the past year? Monthly (2 points) Points 8 Interpretation Positive PROBLEMS Problem Type ICD Code Onset Dates Problem Status W/U Status Risk SNOMED Code Notes Problem Fatty liver (K76.0) Active confirmed 369415800 Problem Elevated liver function tests (R79.89) Active confirmed 168268809 VITAL SIGNS BMI 25.43 kg/m2 12/18/2022 Blood pressure systolic 000 mm Hg 12/19/19 23 Blood pressure diastolic 00 mm Hg 023 Height 74 in 12/18/2022 Temperature 98.6 degrees Fahrenheit 12/19/19 23 Weight 198 lb 2 oz lbs 12/18/2022 Encounters Encounter Location Date Provider Diagnosis [facility] [address] [place] [address] 12/18/2022 Aristeo Mercado Fatty liver K76.0 and Elevated liver function tests R79.89 ASSESSMENTS Encounter Date Diagnosis Assessment Notes Treatment Notes Treatment Clinical Notes 12/18/2022 Fatty liver (ICD-10 - K76.0) You need to keep the diabetes tightly controlled, eliminate alcohol completely, lose weight, and watch diet in order to help the liver 12/18/2022 Elevated liver function tests (ICD-10 - R79.89) PLAN OF TREATMENT Treatment Notes Assessment Notes Fatty liver You need to keep the diabetes tightly controlled, eliminate alcohol completely, lose weight, and watch diet in order to help the liver Pending Test Test Name Order Date LIVER PROFILE 12/18/2022 IRON + IBC (FE) 12/18/2022 CBC w DIFF 12/18/2022 FLUOR. ANTINUCLEAR AB SCREEN (CHASTITY) 06/2022 Next Appt Details Follow Up: 6 Months, Reason: Provider Name:Aristeo eMrcado , 07/14/2024 01:00:00 PM, [address], [address], [place], [address], Progress Notes * Examination Category Sub-Category Detail Notes General Examination GENERAL APPEARANCE: pleasant , well nourished, well developed, in no acute distress EYES: sclera non-icteric NECK/THYROID: no cervical lymphade nopathy, neck supple HEART: S1, S2 normal LUNGS: clear to auscultatio n bilaterally ABDOMEN: normal bowel sounds, no guarding or rigidity, no hepatosplenomegaly, no masses palpable, soft, nontender, nondistended. NEUROLOGIC: alert and oriented SKIN: nonjaundiced, no spi issa angiomata. EXTREMITIES: no edema ORAL CAVITY: mucosa moist
--- OUTSIDE RECORDS SUMMARY | 2024-04-26 14:01 | XMS_ITS | Patient Health Record ---
Author Organization [facility] Address [address] [place] [address] Care Team Providers Care Diesel Truck Technician Name Role Phone Carmelo Phelps MD Primary Care Provider Aristeo Fleming Unavailable [phone] ALLERGIES No Known Allergies REASON FOR REFERRAL No Information MEDICATIONS Medication SIG (Take, Route, Frequency, Duration) Notes Start Date End Date Status metFORMIN HCl ER 750 MG TAKE 1 TABLET BY MOUTH EVERY DAY WITH THE EVENING MEAL Oral for 30 E119,Unavailable Active Fish Oil 1000 MG 1 capsule Orally Onc e a day Active Januvia 50 MG TAKE 1 TABLET BY MOUTH ONCE DAILY DIRECTED Oral for 30 E119,Unavailable Active Vitamin D 50 MCG (2000 UT) 1 tablet Orally Once a day for 30 day(s) Active Vitamin B + C Complex - as directed Orally Active IMMUNIZATIONS Vaccine Route Administration Date Status Comme nts Influenza Unknown 12/16/2022 Administered SOCIAL HISTORY Sex Assigned At : Social History Observation Description Sex Assigned At Unknown Alcohol Screen Question Answer Notes Did you have a drink contain ing alcohol in the past year? Yes How often did you have a dri nk containing alcohol in the past year? 2 to 3 times a week (3 points) How many drinks did you have on a typical day when you were drinking in the past year? 1 or 2 drinks (0 point) How often did you have 6 or more drinks on one occasion in the past year? Never (0 point) Points 3 Interpretation Negative PROBLEMS Problem Type ICD Code Onset Dates Problem Status W/U Status Risk SNOMED Code Notes Problem Elevated liver function tests (R79.89) Active confirmed 036459867 Problem Fatty liver (K76.0) Active confirmed 941535145 VITAL SIGNS Blood pressure diastolic 00 mm Hg 07/08/2023 Height 74 in 07/08/2023 Blood pressure systolic 00 mm Hg 07/08/2023 Weight 200 lbs 07/08/2023 BMI 25.68 kg/m2 07/08/2023 Encounters Encounter Location Date Provider Diagnosis [facility] [address] [place] [address] 07/08/2023 Aristeo Mercado Fatty liver K76.0 and Elevated liver function tests R79.89 ASSESSMENTS Encounter Date Diagnosis Assessment Notes Treatment Notes Treatment Clinical Notes 07/08/2023 Elevated liver function tests (ICD-10 - R79.89) 07/08/2023 Fatty liver (ICD-10 - K76.0) Continue complete avoidance of alcohol, eating healthy, losing weight, and exercising. PLAN OF TREATMENT Pending Test Test Name Order Date LIVER PROFILE 07/08/2023 LIVER PROFILE 12/18/2022 IRON + IBC (FE) 12/18/2022 CBC w DIFF 12/18/2022 FLUOR. ANTINUCLEAR AB SCREEN (CHASTITY) 06/2022 Future Test Test Name Order Date COLONOSCOPY 07/19/2014 Next Appt Details Provider Name:Aristeo Mercado , 07/14/2024 01:00:00 PM, [address], [address], [place], [address], Insurance Providers Payer Name Payer Address Payer Phone Subscriber Number Group Number Insured Name Patient Relationship to Insured Coverage Start Date Coverage End Date [facility] [address] [place], [place] [id number] DIEGO SERRANO Self - patient is the insured MEDICAL (GENERAL) HISTORY Medical History History ICD Code Denies AR,CVA,Lung disease,renal disease NIDDM Elevated LFT's due to fatty liver and EtOH. His liver workup was otherwise negative in 12/2022 Negative screening colonoscopy in 10/2014 Surgical History Surgery Date(Month/Year) Discectomy--lower back--x 2 Stress fracture toe
--- OUTSIDE RECORDS SUMMARY | 2024-04-26 14:01 | XMS_ITS ---
Author Organization Carmelo Phelps MD Address [address] [place] [phone] Care Team Providers Care Lead Network Engineer Name Role Phone Carmelo Phelps Primary Care Provider [phone] Results Component Value Reference Range Notes Complete Blood Count Auto Di ff Reviewed date:04/26/2024 12:33:59 PM Interpretation:04-26-24 Performing Lab:[facility], [address] [place] [phone] Notes/Report: White Blood Count 11.8 4.8-10.8 X10*3/uL Red Blood Count 4.66 4.60-5.80 X10*6/uL Hemoglobin 14.8 14.0-18.0 g/dl Hematocrit 44.7 42.0-52.0 % Mean Corpuscular Volume 95.9 80.0-98.0 fL Mean Corpuscular Hemoglobin 31.8 27.0-33.0 pg Mean Corpuscular HGB Conc 33.1 31.0-36.0 g/dl Red Cell Distribution Width 13.1 11.0-16.0 % Platelet Count 205 160-400 X10*3/uL Mean Platelet Volume 10.2 9.4-12.4 fL Neutrophils Percent Auto 24.5 45-73 % Imm Gran Pct Auto 0.3 0.0-0.4 % Lymphocytes Percent Auto 66.9 20-40 % Monocytes Percent Auto 4.9 2-11 % Eosinophils Percent Auto 2.7 0-4 % Basophils Percent Auto 0.7 0-2 % NRBC Pct Auto 0.0 0.0-0.2 /100WBC Neutrophils Absolute Auto 2.9 2.0-8.3 x10*3/u L Imm Gran Abs Auto 0.03 0.00-0.03 X10*3/uL Lymphocytes Absolute Auto 7.9 1.2-4.9 X10*3/u L Monocytes Absolute Auto 0.6 0.1-1.2 X10*3/uL Eosinophils Absolute Auto 0.3 0.0-0.4 X10*3/u L Basophils Absolute Auto 0.1 0.0-0.2 X10*3/uL NRBC Abs Auto 0.000 0.0-0.012 X10*3/uL CORRECTED REPORT Comprehensive [place]. Panel Fa st Reviewed date:04/19/2024 05:54:44 PM Interpretation: Performing Lab:[facility], [address] [place] [phone] Notes/Report: Sodium 140 135-145 mmol/L Potassium 4.1 3.3-5.1 mmol/L Chloride 105 96-108 mmol/L Carbon Dioxide 26 22-29 mmol/L Anion Gap 13 12-20 Blood Urea Nitrogen 19 9-16 mg/dL Creatinine 0.79 0.5-1.4 mg/dL Estimated Glomerular Filt Rate > 60 Chronic Kidney Disease: Estimated GFR < 60 mL/min/1.73m2 Severe Kidney Disease: Estimated GFR < 15 mL/min/1.73m2 Glucose Fasting 122 60-99 mg/dL A fasting glucose from 100-125 mg/dl is considered impaired (pre-diabetes). Calcium 9.0 8.4-10.2 mg/dL Bilirubin Total 0.8 0.0-1.0 mg/dL Aspartate Amino Transferase 57 5-37 U/L Alanine Aminotransferase 97 0-40 U/L Total Protein 7.6 6.5-8.0 g/dL Albumin Level 4.4 3.5-5.0 g/dL Alkaline Phosphatase 46 39-117 U/L Lipid Panel Reviewed date:04/19/2024 01:03:02 PM Interpretation: Performing Lab:[address] [phone] Notes/Report: Triglycerides 98 <150 mg/dL Desirable Triglyceride: less than 150 mg/dL Borderline High Triglyceride 150-199 mg/dL High Triglyceride: 200-499 mg/dL Very High Triglyceride: greater than or equal to 5OO mg/dL Cholesterol 185 <200 mg/dL Desirable Cholesterol: less than 200 mg/dL Borderline High Cholesterol: 200-239 mg/dL High Cholesterol: greater than 239 mg/dL LDL Cholesterol Calculated 112 <100 mg/dL Desirable LDL: less than 100 mg/dL Near Optimal/Above Optimal LDL: 110-129 mg/dL Borderline High LDL: 130-159 mg/dL High LDL: 160-189 mg/dL Very High LDL: greater than or equal to 190 mg/dL HDL Cholesterol 54 >40 mg/dL Desirable HDL: greater than 40 mg/dL Note: This HDL assay may give artificially low results in patients with liver disease. PSA,Total (Free>4and<10) Reviewed date:04/19/2024 01:02:54 PM Interpretation: Performing Lab:[facility], [address] [place] [phone] Notes/Report: PSA,Total (Free>4and<10) 0.82 0.00-4.00 ng/mL A Free PSA was not performed: The percentage of Free PSA can be used to enhance the differentiation of prostate cancer from benign prostatic disease in subjects whose PSA levels are between 4.0 and 10.0 ng/mL. For subjects whose PSA levels are below 4.0 or above 10.0 ng/mL, the risk of prostate cancer is determined on the basis of the PSA alone. Therefore the % Free PSA is recommended only for those subjects whose PSA levels are between 4.0 and 10.0 ng/mL. PSA methodology: Davidson Alinity i Chemiluminescent Microparticle Immunoassay (CMIA) Microalbumin, Random Reviewed date:04/19/2024 01:02:46 PM Interpretation: Performing Lab:[facility], [address] [place] [phone] Notes/Report: Creatinine Urine 94.33 Microalbumin Urine < 5.0 Microalbum/Creatinine Ratio Ur TNP <30 ug/mg cr Unable to calculate albumin/creatinine ratio due to low microalbumin or creatinine result. Hemoglobin A1c Reviewed date:04/19/2024 01:03:10 PM Interpretation: Performing Lab:[facility], [address] [place] [phone] Notes/Report: Hemoglobin A1c % 5.6 <6.0 % Hemoglobin A1C Reference Range Adults: 4.8 - 6.0 % Non diabetic: < 6.0 % Goal: < 7.0 % Additional Action Suggested: > 8.0 % Note: Hemoglobin A1c results are invalid for patients with abnormal amounts of HbF. Blood transfusions may impact the HbA1c concentration in the patient sample. Estimated Average Glucose 114 eAG = Estimated average glucose which is %A1C expressed as average glucose, using the formula of the [id number] Average Glucose study (ADAG), Diabetes Care, Vol.31,#8, Oct. 2007 REASON FOR VISIT FASTING LABS Encounters Encounter Location Date Provider Diagnosis Carmelo Phelps MD [address] [place] [phone] 04/19/2024 Carmelo Phelps Blood tests for routine general physical examination Z00.00 ; Lymphocytosis D72.820 and Type 2 diabetes mellitus without complication E11.9 Assessments Encounter Date Diagnosis (ICD Code) Assessment Notes Treatment Notes Treatment Clinical Notes Section Notes 04/19/2024 Blood tests for routine general physical examination (ICD-10 - Z00.00) 04/19/2024 Lymphocytosis (ICD-10 - D72.820) 04/19/2024 Type 2 diabetes mellitus without complication (ICD-10 - E11.9) Plan Of Treatment Pending Test Test Name Order Date UA ClnCatch+Micro w/rflx Cult 04/19/2024 Next Appt Details Provider Name:Carmelo Dominguez ier, 05/10/2024 11:45:00 AM, [address] [facility], [address], [place], [place], [phone], Provider Name:Carmelo Dominguez machelle, 04/26/2025 07:00:00 AM, [address] [facility], [address] [facility], [place], [phone], Provider Name:Carmelo Dominguez machelle, 05/03/2025 09:30:00 AM, [address] [facility], [address] [facility], [place], [phone], Progress Notes * Salo SERRANO SDOB:1965 (59 yo M)Acc No.[id number]:04/19/2024 Progress Note Patient:?Salo SERRANO Provider:?Carmelo Phelps MD :1965???Age:59 Y???Sex:Male Timmy e:04/19/2024 Address:[address] [place] [id number] Subjective: * Chief Complaints: * ???1. FASTING LABS. * Medical History:? Objective: * Vitals:? Assessment: * Assessment: 1.?Blood tests for routine g eneral physical examination - Z00.00 (Primary)???2.?Lymphocytosis - D72.820???3.?Type 2 diabetes mellitus without complication - E11.9??? Plan: * Treatment: 2.?Lymphocytosis?LAB: UA ClnCatch+Micro w/rflx Cult ?LAB: Complete Blood Count Auto Diff (Collection Date & Time - 04/19/2024 07:30 AM) ?LAB: Comprehensive [place]. Panel Fast (Collection Date & Time - 04/19/2024 07:30 AM) ?LAB: Lipid Panel (Collection Date & Time - 04/19/2024 07:30 AM) ?LAB: PSA,Total (Free>4and<10) (Collection Date & Time - 04/19/2024 07:30 AM) ?LAB: Microalbumin, Random (Collection Date & Time - 04/19/2024 07:30 AM) ?LAB: Hemoglobin A1c (Collection Date & Time - 04/19/2024 07:30 AM) 3.?Type 2 diabetes mellitus without complication?LAB: UA ClnCatch+Micro w/rflx Cult ?LAB: Complete Blood Count Auto Diff (Collection Date & Time - 04/19/2024 07:30 AM) ?LAB: Comprehensive [place]. Panel Fast (Collection Date & Time - 04/19/2024 07:30 AM) ?LAB: Lipid Panel (Collection Date & Time - 04/19/2024 07:30 AM) ?LAB: PSA,Total (Free>4and<10) (Collection Date & Time - 04/19/2024 07:30 AM) ?LAB: Microalbumin, Random (Collection Date & Time - 04/19/2024 07:30 AM) ?LAB: Hemoglobin A1c (Collection Date & Time - 04/19/2024 07:30 AM) * Procedure Codes:?67388 VENIP UNCT, ROUTINE* * * The named appointment provid er may or may not be the originator of this progress note, and it is not deemed complete until electronically signed by the appointment provider. Sign off status: Pending * Provider:?Carmelo Phelps MD Date:?0 04/19/2024 Generated for Cindy palacios/Breanne/Palmirasmitting on:?04/26/2024 02:01 PM EST
--- OUTSIDE RECORDS SUMMARY | 2024-04-26 14:01 | XMS_ITS ---
Author Organization Carmelo Phelps MD Address [address] [place] [phone] Care Team Providers Care Iron Worker Apprentice Name Role Phone Carmelo Phelps Primary Care Provider Allergies No Known Allergies Results Component Value Reference Range Notes Complete Blood Count Auto Di ff (Not yet reviewed by provider) Interpretation: Performing Lab:[facility], [address] [place] [phone] Notes/Report: White Blood Count 10.8 4.8-10.8 X10*3/uL Red Blood Count 4.28 4.60-5.80 X10*6/uL Hemoglobin 13.7 14.0-18.0 g/dl Hematocrit 41.1 42.0-52.0 % Mean Corpuscular Volume 96.0 80.0-98.0 fL Mean Corpuscular Hemoglobin 32.0 27.0-33.0 pg Mean Corpuscular HGB Conc 33.3 31.0-36.0 g/dl Red Cell Distribution Width 12.8 11.0-16.0 % Platelet Count 216 160-400 X10*3/uL Mean Platelet Volume 10.1 9.4-12.4 fL Neutrophils Percent Auto 28.9 45-73 % Imm Gran Pct Auto 0.2 0.0-0.4 % Lymphocytes Percent Auto 61.3 20-40 % Monocytes Percent Auto 5.9 2-11 % Eosinophils Percent Auto 3.1 0-4 % Basophils Percent Auto 0.6 0-2 % NRBC Pct Auto 0.0 0.0-0.2 /100WBC Neutrophils Absolute Auto 3.1 2.0-8.3 x10*3/u L Imm Gran Abs Auto 0.02 0.00-0.03 X10*3/uL Lymphocytes Absolute Auto 6.6 1.2-4.9 X10*3/u L Monocytes Absolute Auto 0.6 0.1-1.2 X10*3/uL Eosinophils Absolute Auto 0.3 0.0-0.4 X10*3/u L Basophils Absolute Auto 0.1 0.0-0.2 X10*3/uL NRBC Abs Auto 0.000 0.0-0.012 X10*3/uL White Blood Count 10.8 4.8-10.8 X10*3/uL Red Blood Count 4.28 4.60-5.80 X10*6/uL Hemoglobin 13.7 14.0-18.0 g/dl Hematocrit 41.1 42.0-52.0 % Mean Corpuscular Volume 96.0 80.0-98.0 fL Mean Corpuscular Hemoglobin 32.0 27.0-33.0 pg Mean Corpuscular HGB Conc 33.3 31.0-36.0 g/dl Red Cell Distribution Width 12.8 11.0-16.0 % Platelet Count 216 160-400 X10*3/uL Mean Platelet Volume 10.1 9.4-12.4 fL Neutrophils Percent Auto 28.9 45-73 % Imm Gran Pct Auto 0.2 0.0-0.4 % Lymphocytes Percent Auto 61.3 20-40 % Monocytes Percent Auto 5.9 2-11 % Eosinophils Percent Auto 3.1 0-4 % Basophils Percent Auto 0.6 0-2 % NRBC Pct Auto 0.0 0.0-0.2 /100WBC Neutrophils Absolute Auto 3.1 2.0-8.3 x10*3/u L Imm Gran Abs Auto 0.02 0.00-0.03 X10*3/uL Lymphocytes Absolute Auto 6.6 1.2-4.9 X10*3/u L Monocytes Absolute Auto 0.6 0.1-1.2 X10*3/uL Eosinophils Absolute Auto 0.3 0.0-0.4 X10*3/u L Basophils Absolute Auto 0.1 0.0-0.2 X10*3/uL NRBC Abs Auto 0.000 0.0-0.012 X10*3/uL COR RECTED REPORT COR RECTED REPORT Liver Panel Reviewed date:04/26/2024 01:31:41 PM Interpretation: Performing Lab:[facility], [address] [place] [phone] Notes/Report: Bilirubin Total 0.4 0.0-1.0 mg/dL Bilirubin Direct 0.2 0.0-0.5 mg/dL Aspartate Amino Transferase 68 5-37 U/L Alanine Aminotransferase 76 0-40 U/L Total Protein 7.8 6.5-8.0 g/dL Albumin Level 4.6 3.5-5.0 g/dL Alkaline Phosphatase 56 39-117 U/L REASON FOR VISIT ANNUAL EXAM/ must see path report Medications Medication SIG (Take, Route, Frequency, Duration) Notes Start Date End Date Status metFORMIN HCl ER 750 MG TAKE 1 TABLET BY MOUTH EVERY DAY WITH THE EVENING MEAL for 30 Active Ketoconazole 2 % 1 application Data Conversion Analyst ally Twice a day for 30 days 02/01/2022 Not-Taki ng metFORMIN HCl 500 MG 1 tablet with a ila l Orally twice a day for 90 days 08/21/2021 Not-Taking Tadalafil 20 MG 1/2 tablet Orally On ce a day as needed 12/03/2021 Active Januvia 50 MG TAKE 1 TABLET BY TOMMY TH ONCE DAILY DIRECTED Active Social History Tobacco Use: Social History Observation Description Date Details (start date - stop date) Never Smoker NA - NA Tobacco Use/Smoking Question Answer Notes Patient is a nonsmoker Additional Findings: Tobacco Non-User Cu rrent non-smoker, currently using no form of tobacco Alcohol Screen Question Answer Notes Did you have a drink containing alcohol in the p ast year? No Points 0 Interpretation Negative Section Notes: Patient stopped alcohol 30 d ays ago to many calories Vital Signs Blood pressure systolic 132 mm Hg 04/26/19 25 Blood pressure diastolic 66 mm Hg 025 Height 73 in 04/26/2024 Weight 188 lbs 04/26/2024 BMI 24.8 kg/m2 04/26/2024 weight is down 8 pounds sin e 01-05-24 Encounters Encounter Location Date Provider Diagnosis Carmelo Phelps MD [address] [place] [address] [place] [phone] 04/26/2024 Carmelo Phelps Lymphocytosis D72.82 0 ; Annual physical exam Z00.00 ; Elevated LFTs R79.89 ; Type 2 diabetes mellitus without complication E11.9 ; Erectile dysfunction due to diseases classified elsewhere N52.1 ; Colon cancer screening Z12.11 and Depression screening Z13.31 Assessments Encounter Date Diagnosis (ICD Code) Assessment Notes Treatment Notes Treatment Clinical Notes Section Notes 04/26/2024 Lymphocytosis (ICD-10 - D72.820) stable, will continue to monitor 04/26/2024 Annual physical exam (ICD-10 - Z00.00) labs reviewed and discussed with patient 04/26/2024 Elevated LFTs (ICD-10 - R79.89) stable, will continue to monitor 04/26/2024 Type 2 diabetes mellitus without complication (ICD-10 - E11.9) doing well, will contoinue current regiment 04/26/2024 Erectile dysfunction due to diseases classified elsewhere (ICD-10 - N52.1) stable, will contionue current regiment 04/26/2024 Colon cancer screening (ICD-10 - Z12.11) guaiac negative 04/26/2024 Depression screening (ICD-10 - Z13.31) negative creen Plan Of Treatment Treatment Notes Assessment Notes Lymphocytosis stable, will continu e to monitor Annual physical exam labs reviewed and d iscussed with patient Elevated LFTs stable, will continu e to monitor Type 2 diabetes mellitus without complic ation doing well, will contoinue current regiment Erectile dysfunction due to diseases classified elsewhere stable, will contionue current regiment Colon cancer screening guaiac negative Depression screening negative creen Pending Test Test Name Order Date Complete Blood Count Auto Diff Next Appt Details Follow Up: 2 Weeks, Reason: Provider Name:Carmelo carty, 05/10/2024 11:45:00 AM, [address] [place] [address], [address], [phone], Provider Name:Carmelo carty, 04/26/2025 07:00:00 AM, [address] [place] [address], [address], [phone], Provider Name:Carmelo carty, 05/03/2025 09:30:00 AM, [address] [place] [address], [address], [phone], Progress Notes * Salo SERRANO SDOB:1965 (59 yo M)Acc No.[id number]:04/26/2024 Progress Notes Patient:?SERRANO, Salo Lynch Provider:?Carmelo Phelps MD :1965???Age:59 Y???Sex:Male Timmy e:04/26/2024 Address:[address] [place] [id number] Subjective: * Chief Complaints: * ???1. ANNUAL EXAM/ must see path report. * HPI: ???Depression Screening:?PHQ-9?Little interest or pleasure in doing things?Not at all,?Feeling down, depressed, or hopeless?Not at all,?Trouble falling or staying asleep, or sleeping too much?Not at all,?Feeling tired or having little energy?Not at all,?Poor appetite or overeating?Not at all,?Feeling bad about yourself or that you are a failure, or have let yourself or your family down?Not at all,?Trouble concentrating on things, such as reading the newspaper or watching television?Not at all,?Moving or speaking so slowly that other people could have noticed; or the opposite, being so fidgety or restless that you have been moving around a lot more than usual?Not at all,?Thoughts that you would be better off or of hurting yourself in some way?Not at all,?Total Score?0.?Interpretation and Intervention?Depression Screening Findings?Negative,?Follow-Up for Depression?: review of PHQ-9 found negative result, no follow-up needed.?Communication Needs:?Communication Needs?Does the patient have a hearing impairment?No,?Does the patient have a vision impairment??No,?Does the patient have a cognition impairment??No.?SDOH Questions:?SDOH Questions?In the past year have you been worried about losing housing??No,?In the past year have you or any family members you live with been unable to get any of the following when it was really needed? Check all that apply:?None.?Symptom(s):? patient is a 59 yo male here for annual visit with review of recent labbs and follow up of chronic issues. * ROS:?General/Constitutional:?Patient denies?fatigue, headache.?Change in appetite?denies.?Chills?denies.?Fever?denies.?Ophthalmologic:?Blurred vision?denies.?Discharge?denies.?Pain?denies.?ENT:?Patient denies?decreased sense of smell, any loss of taste, sore throat.?Decreased hearing?denies.?Sore throat?denies.?Swollen glands?denies.?Endocrine:?Cold intolerance?denies.?Excessive thirst?denies.?Heat intolerance?denies.?Weight loss?denies.?Respiratory:?Cough?denies.?Shortness of breath at rest?denies.?Shortness of breath with exertion?denies.?Wheezing?denies.?Cardiovascular:?Chest pain at rest?denies.?Chest pain with exertion?denies.?Irregular heartbeat?denies.?Shortness of breath?denies.?Gastrointestinal:?Abdominal pain?denies.?Change in bowel habits?denies.?Diarrhea?denies.?Nausea?denies.?Rectal bleeding?denies.?Vomiting?denies .?Genitourinary:?Blood in urine?denies.?Difficulty urinating?denies.?Frequent urination?denies.?Musculoskeletal:?Patient denies?muscle aches.?Painful joints?denies.?Weakness?denies.?Peripheral Vascular:?Patient denies?red and blue toes.?Skin:?Dry skin?denies.?Itching?denies.?Denies?Mole(s),? changes in moles, new moles or any lesions of concern.?Denies?Photosensitivity.?Rash?denies.?Neurologic:?Dizziness?denies.?Fainting?denies.?Headache?denies.? * Medical History:?Colonoscopy 11/10/14 - repeat 10 yrs w/Dr. Mercado. * Family History:?Father: dece ased 76 yrs, abdominal aortic aneurysm, diagnosed with COPD.?Mother: 76 yrs.?2 brother(s) . .? [id number], aortic aneurysm mother,emphysema 1 brother , heart attack, No pertinent family medical history, Denies mental health/substance abuse family history, Denies mental health/substance abuse family history, Denies mental health/substance abuse family history, No pertinent family medical history. * Social History:?Tobacco Use:?Tobacco Use/Smoking?Patient is a?nonsmoker,?Additional Findings: Tobacco Non-User?Current non-smoker, currently using no form of tobacco.?Drugs/Alcohol:?Alcohol Screen?Did you have a drink containing alcohol in the past year??No,?Points?0,?Interpretation?Negative.?Miscellaneous:?Caffeine: yes, 2-3 cups per day. Children: no. Community involvements: yes. Exercise: yes, walks 2 miles a day. Housing: living with relatives. Living with: significant other. Marital status: single. Occupation: works full-time. Pets: dogs. Travel outside of the [place]: no. ???Patient stopped alcohol 30 days ago to many calories. * Medications:?Taking Tadalafi l 20 MG Tablet 1/2 tablet Orally Once a day as needed , Taking Januvia 50 MG Tablet TAKE 1 TABLET BY MOUTH ONCE DAILY DIRECTED , Taking metFORMIN HCl ER 750 MG Tablet Extended Release 24 Hour TAKE 1 TABLET BY MOUTH EVERY DAY WITH THE EVENING MEAL , Not-Taking/PRN Ketoconazole 2 % Cream 1 application Externally Twice a day , Not-Taking/PRN metFORMIN HCl 500 MG Tablet 1 tablet with a meal Orally twice a day , Medication List reviewed and reconciled with the patient * Allergies:?N.K.D.A. Objective: * Vitals:?Ht: 73, Wt: 188, BMI :24.8, BP:132/66, Wt-k.28. weight is down 8 pounds since 01-05-24. * ???Past Orders: ???Lab:Microalbumin, Random (Order Date - 04/19/2024) (Collection Date & Time - 04/19/2024 07:30 AM) ? Value Reference Range ?Creatinine Urine 94.33 - m g/dL ?Microalbumin Urine < 5.0 - mg/L ?Microalbum Creatinine Ratio Ur TNP <30 - ug/mg cr ???Lab:Hemoglobin A1c (Order Date - 04/19/2024) (Collection Date & Time - 04/19/2024 07:30 AM) ? Value Reference Range ?Hemoglobin A1c % 5.6 <6. 0 - % ?Estimated Average Glucose 114 - mg/dL ???Lab:UA CC w/rflx Micro + Cult (Order Date - 04/19/2024) (Collection Date & Time - 04/19/2024 07:30 AM) ? Value Reference Range ?Color Urine Yellow - ?Appearance Urine Clear - ?PH 5.5 5.0-9.0 - ?Glucose Urine UA Negative Neg ative - mg/dL ?Urine Blood Negative Negative - ?Specific [place] - Urine 1.025 1.005-1.025 - ?Urine Protein Negative Neg-Tr [place] - mg/dL ?Urine Ketones Negative Negati ve - mg/dL ?Nitrite Urine Negative Negati ve - ?Leukocyte Esterase Urine Negative Negative - ???Lab:Comprehensive [place]. P nicki Fast (Order Date - 04/19/2024) (Collection Date & Time - 04/19/2024 07:30 AM) ? Value Reference Range ?Sodium 140 135-145 - mmo l/L ?Bilirubin Total 0.8 0.0- 1.0 - mg/dL ?Aspartate Amino Transferase 57 H 5-37 - U/L ?Alanine Aminotransferase 97 H 0-40 - U/L ?Total Protein 7.6 6.5-8. 0 - g/dL ?Albumin Level 4.4 3.5-5. 0 - g/dL ?Alkaline Phosphatase 46 39-117 - U/L ?Potassium 4.1 3.3-5.1 - mmol/L ?Chloride 105 96-108 - mm ol/L ?Carbon Dioxide 26 22-29 - mmol/L ?Anion Gap 13 12-20 - ?Blood Urea Nitrogen 19 H 9-16 - mg/dL ?Creatinine 0.79 0.5-1.4 - mg/dL ?Estimated Glomerular Filt Rate > 60 - ?Glucose Fasting 122 H 60-9 9 - mg/dL ?Calcium 9.0 8.4-10.2 - m g/dL ???Lab:Lipid Panel (Order Da te - 04/19/2024) (Collection Date & Time - 04/19/2024 07:30 AM) ? Value Reference Range ?Triglycerides 98 <150 - mg/dL ?Cholesterol 185 <200 - m g/dL ?LDL Cholesterol Calculated 112 H <100 - mg/dL ?HDL Cholesterol 54 >40 - mg/dL ???Lab:PSA,Total (Free>4and< 10) (Order Date - 04/19/2024) (Collection Date & Time - 04/19/2024 07:30 AM) ? Value Reference Range ?PSA,Total (Free>4and<10) 0.82 0.00-4.00 - ng/mL * Examination: ???General Examination: ?GENERAL APPEARANCE:?well developed, well nourished, in no acute distress.?HEAD:?normocephalic, atraumatic.?EYES:?pupils equal, round, reactive to light and accommodation, sclera non-icteric.?EARS:?normal.?ORAL CAVITY:?mucosa moist.?THROAT:?clear.?NECK/THYROID:?neck supple, full range of motion, no cervical lymphadenopathy, no bruits.?SKIN:?warm and dry, no suspicious lesions.?HEART:?regular rate and rhythm, S1, S2 normal, no murmurs.?LUNGS:?clear to auscultation bilaterally.?ABDOMEN:?soft, nontender, nondistended, bowel sounds present, normal, liver 2 inches below ribs, no masses palpable.?RECTAL EXAM:?normal tone, no external hemorrhoids, no masses palpable, prostate normal, stool guaiac negative.?MALE GENITOURINARY:?not examined, testes descended bilaterally, no testicular mass, circumcised.?EXTREMITIES:?no clubbing, cyanosis, or edema.?NEUROLOGIC:?nonfocal, motor strength normal upper and lower extremities, sensory exam intact.? Assessment: * Assessment: 1.?Annual physical exam - Z0 0.00 (Primary)???2.?Lymphocytosis - D72.820???3.?Elevated LFTs - R79.89???4.?Type 2 diabetes mellitus without complication - E11.9???5.?Erectile dysfunction due to diseases classified elsewhere - N52.1???6.?Colon cancer screening - Z12.11???7.?Depression screening - Z13.31??? Plan: * Treatment: 2.?Lymphocytosis?LAB: Complete Blood Count Auto Diff (Collection Date & Time - 04/26/2024 10:30 AM) Notes: stable, will continue to monitor?? 3.?Elevated LFTs?LAB: Liver Panel (Collection Date & Time - 04/26/2024 10:30 AM) Notes: stable, will continue to monitor?? 4.?Type 2 diabetes mellitus without complication? Notes: doing well, will contoinue current regiment?? 5.?Erectile dysfunction due to diseases classified elsewhere? Notes: stable, will contionue current regiment?? 6.?Colon cancer screening? Notes: guaiac negative?? 7.?Depression screening? Notes: negative creen?? * Procedure Codes:?98076 VENIP UNCT, ROUTINE* * Preventive Medicine:? ??Counseling:?Care goal follow-up plan:?Counseling for abnormal BMI provided?Yes,?Above Normal BMI Follow-up?Giving encouragement to exercise.? ??Diabetes Care Plan:?Patient Lifestyle Goals?Needs to maintain diet control.?Treatment Goals?A1C< 7.?Barriers ?No specific barriers, doing well.?Self-Managment Plan?Increase light exercise to 3 times a week for 30 minutes.?Expected Outcome maintaining stable blood sugar levels within a target range.? * Follow Up:?2 Weeks * * The named appointment provid er may or may not be the originator of this progress note, and it is not deemed complete until electronically signed by the appointment provider. Sign off status: Pending * Provider:?Carmelo Phelps MD Date:?0 04/26/2024 Generated for Cindy palacios/Breanne/Palmirasmitting on:?04/26/2024 02:01 PM EST History and Physical Notes * HPI (History of Present Illness) Category Sub-Category Detail Notes Category Not es Symptom(s) patient is a 59 yo male here for annual visit with review of recent labbs and follow up of chronic issues. Depression Screening PHQ-9 Little inte rest or pleasure in doing things: Not at all Feeling down, depressed, or hopeless: No t at all Trouble falling or staying asleep, or sl eeping too much: Not at all Feeling tired or having little energy: N ot at all Poor appetite or overeating: Not at all Feeling bad about yourself o r that you are a failure, or have let yourself or your family down: Not at all Trouble concentrating on thi ngs, such as reading the newspaper or watching television: Not at all Moving or speaking so slowly that other people could have noticed; or the opposite, being so fidgety or restless that you have been moving around a lot more than usual: Not at all Thoughts that you would be b king off or of hurting yourself in some way: Not at all Total Score: 0 Interpretation and Intervention Depression Madison olivera Findings: Negative Follow-Up for Depression: : review of PH Q-9 found negative result, no follow-up needed SDOH Questions SDOH Questions In the past year have you been worried about losing housing?: No In the past year have you or any family members you live with been unable to get any of the following when it was really needed? Check all that apply:: None Communication Needs Communication Needs Does the patient have a hearing impairment: No Does the patient have a vision impairmen t?: No Does the patient have a cognition impair ment?: No Examination Category Sub-Category Detail Notes Category Not es General Examination GENERAL APPEARANCE: well dev eloped, well nourished, in no acute distress HEAD: normocephalic, atrau matic EYES: pupils equal, round, reactive to light and accommodation, sclera non-icteric EARS: normal THROAT: clear NECK/THYROID: neck supple, full ra nge of motion, no cervical lymphadenopathy, no bruits HEART: regular rate and rhy thm, S1, S2 normal, no murmurs LUNGS: clear to auscultatio n bilaterally ABDOMEN: soft, nontender, non distended, bowel sounds present, normal, liver 2 inches below ribs, no masses palpable NEUROLOGIC: nonfocal, motor stre ngth normal upper and lower extremities, sensory exam intact SKIN: warm and dry, no navya picious lesions EXTREMITIES: no clubbing, cyanosi s, or edema MALE GENITOURINARY: not examined, testes descended bilaterally, no testicular mass, circumcised RECTAL EXAM: normal tone, no exte rnal hemorrhoids, no masses palpable, prostate normal, stool guaiac negative ORAL CAVITY: mucosa moist
--- OUTSIDE RECORDS SUMMARY | 2024-04-26 14:01 | XMS_ITS ---
Author Organization [facility] Address [address] [place] [address] Care Team Providers Care Electron Beam Welder Name Role Phone Carmelo Phelps MD Primary Care Provider Aristeo Fleming Unavailable [phone] REASON FOR VISIT looking for sooner appt from PCP office Encounters Encounter Location Date Provider Diagnosis [facility] [address] [place] [address] [address] [place] [address] 11/14/2022 Aristeo Mercado PLAN OF TREATMENT Next Appt Details Provider Name:Aristeo Mercado , 07/14/2024 01:00:00 PM, [address] [place] [address], [address], [place], [phone],
--- OUTSIDE RECORDS SUMMARY | 2024-04-26 14:01 | XMS_ITS ---
Author Organization Carmelo Phelps MD Address [address] [place] [phone] Care Team Providers Care Belt Cutter Name Role Phone Carmelo Phelps Primary Care Provider [phone] REASON FOR VISIT RE:Need to reschedule bloodwork due to unexpected scheduling conflict Encounters Encounter Location Date Provider Diagnosis Carmelo Phelps MD [address] [facility] [address] [place] [phone] 04/11/2024 Carmelo Phelps Plan Of Treatment Next Appt Details Provider Name:Carmelo carty, 05/10/2024 11:45:00 AM, [address] [place] [address], [address], [phone], Provider Name:Carmelo carty, 04/26/2025 07:00:00 AM, [address] [place] [address], [address], [phone], Provider Name:Carmelo carty, 05/03/2025 09:30:00 AM, [address], [address], [place], [place], [phone], Progress Notes * Salo SERRANO SDOB:1965 (59 yo M)Acc No.[id number]:04/11/2024 Patient:?Salo SERRANO S :1965???Age:59 Y???Sex:Male Address:[address] [place] [phone] * true * Date:? Generated for Cindy palacios/Breanne/Palmirasmitting on:?04/26/2024 02:01 PM EST
--- OUTSIDE RECORDS SUMMARY | 2024-04-26 14:01 | XMS_ITS ---
Author Organization [facility] Address [address] [place] [address] Care Team Providers Care Salesperson Shoes Name Role Phone Carmelo Phelps MD Primary Care Provider Aristeo Fleming Unavailable [phone] ALLERGIES No Known Allergies REASON FOR VISIT Patient presents today for a fatty liver MEDICATIONS Medication SIG (Take, Route, Frequency, Duration) Notes Start Date End Date Status metFORMIN HCl ER 750 MG TAKE 1 TABLET BY MOUTH EVERY DAY WITH THE EVENING MEAL Oral for 30 E119,Unavailable Active Fish Oil 1000 MG 1 capsule Orally Onc e a day Active Januvia 50 MG TAKE 1 TABLET BY MOUTH ONCE DAILY DIRECTED Oral for 30 E119,Unavailable Active Vitamin B + C Complex - as directed Orally Active Vitamin D 50 MCG (2000 UT) 1 tablet Orally Once a day for 30 day(s) Active SOCIAL HISTORY Sex Assigned At : [...] Never (0 point) Points 3 Interpretation Negative VITAL SIGNS BMI 25.68 kg/m2 07/08/2023 Blood pressure systolic 00 mm Hg 07/08/19 24 Blood pressure diastolic 00 mm Hg 024 Height 74 in 07/08/2023 Weight 200 lbs 07/08/2023 Encounters Encounter Location Date Provider Diagnosis [facility] [address] [place] [address] 07/08/2023 Aristeo Mercado Fatty liver K76.0 and Elevated liver function tests R79.89 ASSESSMENTS Encounter Date Diagnosis Assessment Notes Treatment Notes Treatment Clinical Notes 07/08/2023 Fatty liver (ICD-10 - K76.0) Continue complete avoidance of alcohol, eating healthy, losing weight, and exercising. 07/08/2023 Elevated liver function tests (ICD-10 - R79.89) PLAN OF TREATMENT Treatment Notes Assessment Notes Fatty liver Continue complete av oidance of alcohol, eating healthy, losing weight, and exercising. Pending Test Test Name Order Date LIVER PROFILE 07/08/2023 Next Appt Details Follow Up: 1 Year, Reason: Provider Name:Aristeo Mercado , 07/14/2024 01:00:00 PM, [address], [address], [place], [address], Progress Notes * Examination Category Sub-Category Detail [...]
== END 2024-04-26 12:57 | disposition home or self-care (01) ==
LOC: HO.LNP 12:56
PROVIDERS: Visit Provider Internal Medicine
DX: D72.820 Lymphocytosis (symptomatic) (principal); R79.89 Other specified abnormal findings of blood chemistry
CPT/HCPCS: 80076; 85025

== ENCOUNTER 2024-07-07 10:03 | Outpatient (REF) | payer BC, SELFPAY ==
--- NOTE | ~2024-07-07 | US_ITS ---
CLINICAL HISTORY: ? Hepatosplenomegaly US abdomen complete. COMPARISON: US abdomen dated 05/13/22 at 16:18 EST Technique: Real time sonographic imaging, including color-flow imaging, was performed by the welfare case worker. Multiple digital sales representative static images were saved for review. FINDINGS: The visualized aorta and inferior vena cava are normal caliber. The visualized portions of the pancreas appear normal. The liver has diffusely increased echogenicity. Simple hepatic cyst measuring 1.1 x 0.5 x 0.8 cm present within the left lobe. Simple hepatic cyst measuring 1.5 x 1.3 x 1.4 cm present within the right lobe. Liver, right lobe size: 20.9 cm, enlarged The gallbladder is normal in size. No cholelithiasis or sludge identified. There is a negative sonographic Joseph's sign. Gallbladder wall: 2 mm, normal. Common bile duct: 4 mm, normal. Right kidney: Cortical medullary differentiation is maintained. Normal color flow by Doppler. No calculus or focal parenchymal abnormality identified. No hydronephrosis. Right kidney length: 11.3 cm Left kidney: Cortical medullary differentiation is maintained. Normal color flow by Doppler. No calculus or focal parenchymal abnormality identified. No hydronephrosis. Left kidney length: 11.1 cm The spleen has normal echogenicity. Splenic length: 10.1 cm, normal. No free intraperitoneal fluid identified. IMPRESSION: 1. No acute findings. No evidence of cholecystitis. 2. Hepatomegaly with hepatic steatosis. This document has been electronically signed by: Ronn Lal MD on 07/09/2024 13:50:24
--- OUTSIDE RECORDS SUMMARY | 2024-07-07 11:34 | XMS_ITS ---
Author Organization Carmelo Phelps MD Address [address] [place] [phone] Care Team Providers Care Steam And Gas Turbines Assembler Name Role Phone Carmelo Phelps Primary Care Provider REASON FOR VISIT Message for Kathy. [facility] Liver Pnl + Updates on other Dr. Espinosas etc. Encounters Encounter Location Date Provider Diagnosis Carmelo Phelps MD [address] [place] [address] [place] [phone] 06/30/2024 Carmelo Phelps Plan Of Treatment Next Appt Details Provider Name:Carmelo carty, 07/12/2024 08:15:00 AM, [address] [place] [address], [address], [phone], Provider Name:Carmelo carty, 04/26/2025 07:00:00 AM, [address] [place] [address], [address], [phone], Provider Name:Carmelo Tacos Dominguez machelle, 05/03/2025 09:30:00 AM, [address], [address], [place], [place], [phone], Progress Notes * Salo SERRANO SDOB:1965 (59 yo M)Acc No.[id number]:06/30/2024 Patient:?Salo SERRANO S :1965???Age:59 Y???Sex:Male Address:[address] [place] [phone] * true * Date:? Generated for Cindy palacios/Breanne/Palmirasmitting on:?07/07/2024 11:34 AM EDT
--- OUTSIDE RECORDS SUMMARY | 2024-07-07 11:34 | XMS_ITS | Patient Health Record ---
Author Organization Carmelo Phelps MD Address [address] [place] [address] [phone] Care Team Providers Care Water Purifier Name Role Phone Carmelo Phelps Primary Care Provider [phone] Allergies No Known Allergies Results Component Value Reference Range Notes Hemoglobin A1c Reviewed date:07/11/2023 02:26:00 PM Interpretation: Performing Lab: Notes/Report: Hemoglobin A1c 5.8 Hemoglobin A1c Reviewed date:10/02/2023 03:16:31 PM Interpretation: Performing Lab: Notes/Report: Hemoglobin A1c 5.9 Hemoglobin A1c Reviewed date:01/05/2024 03:15:08 PM Interpretation: Performing Lab: Notes/Report: Hemoglobin A1c 6.1 Liver Panel Reviewed date:09/12/2023 12:21:51 PM Interpretation: Performing Lab:[facility], [address] [place] [phone] Notes/Report: Bilirubin Total 0.9 0.0-1.0 mg/dL Bilirubin Direct 0.3 0.0-0.5 mg/dL Aspartate Amino Transferase 46 5-37 U/L Alanine Aminotransferase 40 0-40 U/L Total Protein 7.3 6.5-8.0 g/dL Albumin Level 4.5 3.5-5.0 g/dL Alkaline Phosphatase 51 39-117 U/L Complete Blood Count Auto Di ff Reviewed date:04/26/2024 12:33:59 PM Interpretation:04-26-24 Performing Lab:[facility], [address] [place] [phone] Notes/Report: White Blood Count 11.8 4.8-10.8 X10*3/uL [...] Auto 0.000 0.0-0.012 X10*3/uL CORRECTED REPORT Comprehensive [place]. Panel Fa st Reviewed date:04/19/2024 05:54:44 PM Interpretation: Performing Lab:[facility], [address] [place] [phone] Notes/Report: Sodium 140 135-145 mmol/L Potassium 4.1 [...] Panel Reviewed date:04/19/2024 01:03:02 PM Interpretation: Performing Lab:[facility], [address] [place] [phone] Notes/Report: Triglycerides 98 <150 mg/dL Desirable Triglyceride: [...] (Free>4and<10) Reviewed date:04/19/2024 01:02:54 PM Interpretation: Performing Lab:[address] [phone] Notes/Report: PSA,Total (Free>4and<10) 0.82 0.00-4.00 ng/mL A [...] Random Reviewed date:04/19/2024 01:02:46 PM Interpretation: Performing Lab:[address] [phone] Notes/Report: Creatinine Urine 94.33 Microalbumin Urine < 5.0 Microalbum/Creatinine Ratio Ur TNP <30 ug/mg cr Unable to calculate albumin/creatinine ratio due to low microalbumin or creatinine result. Hemoglobin A1c Reviewed date:04/19/2024 01:03:10 PM Interpretation: Performing Lab:[address] [phone] Notes/Report: Hemoglobin A1c % 5.6 <6.0 % [...] average glucose, using the formula of the U3D-Bdwvtam Average Glucose study (ADAG), Diabetes Care, Vol.31,#8, 2007 Glucose, finger stick Reviewed date:07/11/2023 02:15:25 PM Interpretation: Performing Lab: Notes/Report: Value 120 Liver Panel Reviewed date:09/12/2023 10:40:17 AM Interpretation:09-11-24 repeat in 2 months Performing Lab:[facility], [address] [place] [phone] Notes/Report: Bilirubin Total 0.6 0.0-1.0 mg/dL Bilirubin Direct 0.2 0.0-0.5 mg/dL Aspartate Amino Transferase 74 5-37 U/L Alanine Aminotransferase 107 0-40 U/L Total Protein 7.7 6.5-8.0 g/dL Albumin Level 4.6 3.5-5.0 g/dL Alkaline Phosphatase 52 39-117 U/L Glucose, finger stick Reviewed date:10/02/2023 03:10:09 PM Interpretation: Performing Lab: Notes/Report: Value 141 Glucose, finger stick Reviewed date:01/05/2024 03:10:28 PM Interpretation: Performing Lab: Notes/Report: Value 121 Complete Blood Count Auto Di ff Reviewed date:04/26/2024 03:08:02 PM Interpretation: Performing Lab:[facility], [address] [place] [phone] Notes/Report: White Blood Count 10.8 4.8-10.8 X10*3/uL [...] Abs Auto 0.000 0.0-0.012 X10*3/uL CORRECTED REPORT CORRECTED REPORT Liver Panel Reviewed date:04/26/2024 01:31:41 PM Interpretation: Performing Lab:[address] [phone] Notes/Report: Bilirubin Total 0.4 0.0-1.0 mg/dL Bilirubin Direct 0.2 0.0-0.5 mg/dL Aspartate Amino Transferase 68 5-37 U/L Alanine Aminotransferase 76 0-40 U/L Total Protein 7.8 6.5-8.0 g/dL Albumin Level 4.6 3.5-5.0 g/dL Alkaline Phosphatase 56 39-117 U/L Navin Christine Reviewed date:07/11/2023 05:16:03 PM Interpretation: Performing Lab:[address] [phone] Notes/Report: Navin Christine See Note Specimen held untested for 24 hours; Call to request Chemistry testing. Pathologist Review - CBC Reviewed date:04/26/2024 12:34:16 PM Interpretation:04-26-24 Performing Lab:[address] [phone] Notes/Report: Pathologist Review - CBC SEE NOTE - Mild lymphocytosis with occasional variant lymphoid cells and smudge cells: consider a lymphoproliferative disorder(e.g. CLL) vs a reactive process. Reviewed by Laura Lindsay MD SLIDE REVIEW Reviewed date:04/21/2024 08:07:18 PM Interpretation: Performing Lab:[facility], [address] [place] [phone] Notes/Report: SLIDE REVIEW VERIFIED UA CC w/rflx Micro + Cult Reviewed date:04/19/2024 01:34:57 PM Interpretation: Performing Lab:[facility], [address] [place] [phone] Notes/Report: [id number] Urine, Clean Catch Color Urine Yellow Appearance Urine Clear PH 5.5 5.0-9.0 Glucose Urine UA Negative Negative mg/dL Urine Blood Negative Negative Specific [place] - Urine 1.025 1.005-1.025 Urine Protein Negative Neg-Trace mg/dL Urine Ketones Negative Negative mg/dL Nitrite Urine Negative Negative Leukocyte Esterase Urine Negative Negative SLIDE REVIEW Reviewed date:04/26/2024 01:32:00 PM Interpretation: Performing Lab:[address] [phone] Notes/Report: SLIDE REVIEW VERIFIED Complete Blood Count Man Dif Reviewed date:06/05/2024 06:20:36 PM Interpretation: Performing Lab:[facility], [address] [place] [phone] Notes/Report: White Blood Count 11.2 4.8-10.8 X10*3/uL Red Blood Count 4.19 4.60-5.80 X10*6/uL Hemoglobin 13.1 14.0-18.0 g/dl Hematocrit 38.2 42.0-52.0 % Mean Corpuscular Volume 91.2 80.0-98.0 fL Mean Corpuscular Hemoglobin 31.3 27.0-33.0 pg Mean Corpuscular HGB Conc 34.3 31.0-36.0 g/dl Red Cell Distribution Width 12.5 11.0-16.0 % Platelet Count 210 160-400 X10*3/uL Mean Platelet Volume 9.4 9.4-12.4 fL NRBC Pct Auto 0.0 0.0-0.2 /100WBC NRBC Abs Auto 0.000 0.0-0.012 X10*3/uL Neutrophils Percent Manual 57 45-73 % Band Neutrophils Percent 1 3-5 % Lymphocytes Percent Manual 34 20-40 % Monocytes Percent Manual 8 2-11 % Neutrophils Absolute Manual 6.5 2.0-8.3 X10*3/uL Lymphocytes Absolute Manual 3.8 1.2-4.9 X10*3/uL Monocytes Absolute Manual 0.9 0.1-1.2 X10*3/u L Platelet Estimate NORMAL NORMAL Platelet Morphology Comment NORMAL RBC Morphology NORMAL Leukemia/Lymphoma Eval. Marcos becerril Reviewed date:06/10/2024 12:59:09 PM Interpretation: Performing Lab:[facility], [address] [place] [phone] Notes/Report: LEUKEMIA/[place] [id number] blood LLE Interpretation See Note See repor t from [employer] in the EMR. Comprehensive Met. Panel Reviewed date:06/07/2024 12:53:51 PM Interpretation: Performing Lab:[facility], [address] [place] [phone] Notes/Report: Sodium 136 135-145 mmol/L Potassium 4.0 3.3-5.1 mmol/L Chloride 106 96-108 mmol/L Carbon Dioxide 20 22-29 mmol/L Anion Gap 14 12-20 Blood Urea Nitrogen 13 9-16 mg/dL Creatinine 0.76 0.5-1.4 mg/dL Creatinine Clr Calc Pharmacy 120.1 eGFR (calculated from the MDRD study equation) and eCrCl (calculated from the Cockcroft-Gault equation) are based on different parameters and may not yield comparable results. If eCrCl result is absurd, please check patient's height/weight. Estimated Glomerular Filt Rate > 60 Chronic Kidney Disease: Estimated GFR < 60 mL/min/1.73m2 Severe Kidney Disease: Estimated GFR < 15 mL/min/1.73m2 Glucose Random 98 60-115 mg/dL Calcium 9.3 8.4-10.2 mg/dL Bilirubin Total 0.7 0.0-1.0 mg/dL Aspartate Amino Transferase 69 5-37 U/L Alanine Aminotransferase 96 0-40 U/L Total Protein 7.6 6.5-8.0 g/dL Albumin Level 4.4 3.5-5.0 g/dL Alkaline Phosphatase 57 39-117 U/L Lactate Dehydrogenase Reviewed date:06/05/2024 06:19:58 PM Interpretation: Performing Lab:[facility], [address] [place] [phone] Notes/Report: Lactate Dehydrogenase 202 118-273 U/L Beta-2 Microglobulin, Serum Reviewed date:06/07/2024 12:53:24 PM Interpretation: Performing Lab:[facility], [address] [place] [phone] Notes/Report: Beta-2 Microglobulin, Serum 1.80 < OR = 2.51 mg/L THIS TEST WAS PERFORMED AT: [facility] [address] [place] [phone] BJORN MCCORMICK MD Immunofixation Pnl, Serum Reviewed date:06/08/2024 08:00:23 PM Interpretation: Performing Lab:[facility], [address] [place] [phone] Notes/Report: IgG 605 360-7308 mg/dL IgA 347 47-310 mg/dL IgM 77 50-300 mg/dL THIS TEST WAS PERFORMED AT: [facility] [address] [place] [phone] BJORN MCCORMICK MD Immunofixation Interpretation SEE NOTE Normal pattern. No monoclonal proteins detected. Hepatitis B,C Profile Reviewed date:06/07/2024 12:53:34 PM Interpretation: Performing Lab:[facility], [address] [place] [phone] Notes/Report: Hepatitis B Surface Antibody NONREACTIVE Nonreactive Nonreactive: < 8.00 mIU/mL Hepatitis B Core Antibody Nonreactive Nonreactive Hepatitis C Antibody Nonreactive Nonreactive Antibodies to HCV not detected; does not exclude early acute HCV infection. Hepatitis B Surface Antigen Negative Negative Reason For Referral Reason lymphocytosis, go ov er lab work please eval and treat Diagnosis 1 Lymphocytosis (D72.8 20) Referral Organization Carmelo Phelps MD Referring Provider First Name Carmelo Referring Provider Last Name Mattie Referring Provider Speciality Internal M edicine Referred Provider IRVIN CROCKETT Referred Provider Specialty Hematology/O ncology General Notes Lana Scott 0 04/26/2024 03:05:58 PM >info faxed to office, Lana Scott 04/29/2024 01:21:29 PM > was told referral is being worked on Referral Priority Routine Referral Appointment Date 05/31/2024 Medications Medication SIG (Take, Route, Frequency, Duration) Notes Start Date End Date Status metFORMIN HCl 500 MG 1 tablet with a ila l Orally twice a day for 90 days 08/21/2021 Not-Taking Ketoconazole 2 % 1 application Wrapper Leaf Inspector ally Twice a day for 30 days 02/01/2022 Not-Malina ng metFORMIN HCl ER 750 MG TAKE 1 TABLET BY MOUTH EVERY DAY WITH THE EVENING MEAL Active Tadalafil 20 MG 1/2 tablet Orally On ce a day as needed for 30 days 12/03/2021 Active Januvia 50 MG TAKE 1 TABLET BY TOMMY TH DAILY DIRECTED for 30 Active Immunizations Vaccine Route Administration Date Status Comme nts Shingrix IM Intramuscular 07/28/2018 Administered Shingrix IM Intramuscular 09/15/2018 Administered Fluarix Quadrivalent Unknown 01/04/2019 Administered [facility] Fluarix Quadrivalent IM Intramuscular 12/17/2019 Administe red TDaP Unknown 03/24/2018 Administered Fluarix Quadrivalent Unknown 03/24/2018 Administered Covid Vaccine Unknown 05/26/2020 Administered Pfizer Fluarix Quadrivalent Unknown 01/03/2021 Administered [facility] SARS-COV-2 Pfizer Unknown 06/16/2020 Administered SARS-COV-2 Pfizer Unknown 01/03/2021 Administered Fluarix Quadrivalent Unknown 01/05/2022 Administered SARS-COV-2 Moderna Unknown 01/05/2022 Administered SARS-COV-2 Pfizer Unknown 12/24/2022 Administered [facility] Fluarix Quadrivalent - 150 IM Intramuscular 11/24/2023 Administered Flu Vaccine Unknown 01/30/2015 Refused Social History Tobacco Use: Social History Observation [...] 30 d ays ago to many calories Patient stopped alcohol 30 d ays ago to many calories Patient stopped alcohol 30 d ays ago to many calories Patient stopped alcohol 30 d ays ago to many calories Problems Problem Type SNOMED Code ICD Code Onset Dates Problem Status W/U Status Risk Notes Problem 94559671 Lymphocytosis (D72.820) Active confirmed Problem 011764800 Exercise induced bronchospasm (J45.990) Active confirmed Problem 019370236 Erectile dysfunction due to diseases classified elsewhere (N52.1) Active confirmed Problem 0693912 Arthritis (M19.90) Active confirmed Problem 620777587 Lumbar disc disease (M51.9) Active confirmed Problem 26498995 Spermatocele (N43.40) Active confirmed Problem Type II diabetes mellitus without complication (531219877) Type 2 diabetes mellitus without complication (E11.9) Active confirmed Problem 49672236 Acute idiopathic gout of right ankle (M10.071) Active confirmed Problem 74427910 Intervertebral lumbar disc disorder with myelopathy, 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) Active confirmed Problem 212917244 Pseudogout of le ft ankle (M11.272) Active confirmed Vital Signs Blood pressure diastolic 80 mm Hg 05/10/2024 Height 73 in 05/10/2024 Blood pressure systolic 122 mm Hg 05/10/2024 Weight 189 lbs 05/10/2024 BMI 24.93 kg/m2 05/10/2024 Encounters Encounter Location Date Provider Diagnosis Carmelo Phelps MD [address] [place] [address] [id number] 09/12/2023 Carmelo Phelps Elevated LFTs R79.89 Carmelo Phelps MD [address] [place] [address] [id number] 11/24/2023 Carmelo Phelps Encounter for immunization Z23 Carmelo Phelps MD [address] [place] [address] [id number] 04/19/2024 Carmelo Phelps Blood tests for routine general physical examination Z00.00 ; Lymphocytosis D72.820 and Type 2 diabetes mellitus without complication E11.9 Carmelo Phelps MD [address] [place] [id number] 07/11/2023 Carmelo Phelps Type 2 diabetes mellitus without complication E11.9 and Elevated LFTs R79.89 Carmelo Phelps MD [address] [place] [address] [id number] 10/02/2023 Carmelo Phelps Type 2 diabetes mellitus without complication E11.9 Carmelo Phelps MD [address] [place] [address] [id number] 01/05/2024 Carmelo Phelps Type 2 diabetes mellitus without complication E11.9 Camrelo Phelps MD [address] [place] [address] [id number] 04/26/2024 Carmelo Phelps Lymphocytosis D72.82 0 ; Annual physical exam Z00.00 ; Elevated LFTs R79.89 ; Type 2 diabetes mellitus without complication E11.9 ; Erectile dysfunction due to diseases classified elsewhere N52.1 ; Colon cancer screening Z12.11 and Depression screening Z13.31 Carmelo Phelps MD [address] [place] [address] [id number] 05/10/2024 Carmelo Phelps Lymphocytosis D72.82 0 ; Type 2 diabetes mellitus without complication E11.9 and Elevated LFTs R79.89 Carmelo Phelps MD [address] [place] [address] [id number] 07/14/2023 Carmelo Phelps MD [address] [place] [address] [id number] 05/04/2024 Carmelo Phelps MD [address] [place] [address] [id number] 07/11/2023 Carmelo Phelps MD [address] [place] [address] [id number] 11/24/2023 Carmelo Phelps MD [address] [place] [address] [id number] 01/21/2024 Carmelo Phelps MD [address] [place] [address] [id number] 01/21/2024 Carmelo Phelps MD [address] [place] [address] [id number] 01/24/2024 Carmelo Phelps MD [address] [place] [address] [id number] 01/28/2024 Carmelo Phelps MD [address] [place] [address] [id number] 02/18/2024 Carmelo Phelps MD [address] [place] [address] [id number] 02/20/2024 Carmelo Phelps MD [address] [place] [address] [id number] 04/08/2024 Carmelo Phelps MD [address] [place] [address] [id number] 04/11/2024 Carmelo Phelps MD [address] [place] [address] [id number] 05/20/2024 Carmelo Pehlps MD [address] [place] [address] [id number] 06/02/2024 Carmelo Phelps Erectile dysfunction due to diseases classified elsewhere N52.1 Carmelo Phelps MD [address] [place] [address] [id number] 06/02/2024 Carmelo Phelps MD [address] [place] [address] [id number] 06/02/2024 Carmelo Phelps MD [address] [place] [address] [id number] 06/04/2024 Carmelo Phelps MD [address] [place] [address] [id number] 06/30/2024 Carmelo Phelps MD [address] [place] [address] [id number] 06/30/2024 Carmelo Phelps Assessments Encounter Date Diagnosis (ICD Code) Assessment Notes Treatment Notes Treatment Clinical Notes Section Notes 09/12/2023 Elevated LFTs (ICD-10 - R79.89) 11/24/2023 Encounter for immunization (ICD-10 - Z23) 04/19/2024 Blood tests for routine general physical examination (ICD-10 - Z00.00) 07/11/2023 Type 2 diabetes mellitus without complication (ICD-10 - E11.9) stable, will continue current regiment 07/11/2023 Elevated LFTs (ICD-10 - R79.89) pending labs 10/02/2023 Type 2 diabetes mellitus without complication (ICD-10 - E11.9) wants to try stopping januvia and see if sugar goes back up 01/05/2024 Type 2 diabetes mellitus without complication (ICD-10 - E11.9) had been off januvia sometimes.. is getting a CGM 04/26/2024 Lymphocytosis (ICD-10 - D72.820) stable, will continue to monitor 04/26/2024 Annual physical exam (ICD-10 - Z00.00) labs reviewed and discussed with patient 05/10/2024 Lymphocytosis (ICD-10 - D72.820) is going to see dr padilla this week. 05/10/2024 Type 2 diabetes mellitus without complication (ICD-10 - E11.9) has been doing well, will continue current regiment 06/02/2024 Erectile dysfunction due to diseases classified elsewhere (ICD-10 - N52.1) 04/19/2024 Lymphocytosis (ICD-10 - D72.820) 04/26/2024 Elevated LFTs (ICD-10 - R79.89) stable, will continue to monitor 05/10/2024 Elevated LFTs (ICD-10 - R79.89) will repeat, pending labs 04/19/2024 Type 2 diabetes mellitus without complication (ICD-10 - E11.9) 04/26/2024 Type 2 diabetes mellitus without complication (ICD-10 - E11.9) doing well, will contoinue current regiment 04/26/2024 Erectile dysfunction due to diseases classified elsewhere (ICD-10 - N52.1) stable, will contionue current regiment 04/26/2024 Colon cancer screening (ICD-10 - Z12.11) guaiac negative 04/26/2024 Depression screening (ICD-10 - Z13.31) negative creen Plan Of Treatment Pending Test Test Name Order Date Electrocardiogram (EKG) 05/25/2015 Electrocardiogram (EKG) 08/04/2018 Occult Blood, Stool, Guaiac 05/19/2014 US ABD 02/01/2022 US COMPLETE ABDOMEN WITH LIVER ELASTOGRA PHY 05/16/2022 UA ClnCatch+Micro w/rflx Cult 04/19/2024 Next Appt Details Provider Name:Carmelo carty, 07/12/2024 08:15:00 AM, [address] [place] [address], Suite [facility], [place], [place], [phone], Provider Name:Carmelo zieglerr, 04/26/2025 07:00:00 AM, [address] [place] [address], [address] [place] [address], [phone], Provider Name:Carmelo zieglerr, 05/03/2025 09:30:00 AM, [address] [place] [address], Suite [facility], [place], [place], [phone], Insurance Providers Payer Name Payer Address Payer Phone Subscriber Number Group Number Insured Name Patient Relationship to Insured Coverage Start Date Coverage End Date [facility] [address] [place], [place] [id number] [phone] [id number] [employer] Self - patient is the insured Medical (General) History Medical History History ICD Code Colonoscopy 11/10/14 - repeat 10 yrs w/Dr Mauro Mercado Surgical History Surgery Date(Month/Year) lumbar laminectomy 2003
--- OUTSIDE RECORDS SUMMARY | 2024-07-07 11:34 | XMS_ITS | Patient Health Record ---
Author Organization [facility] Address [address] [place] [address] Care Team Providers Care Plaster Patternmaker Name Role Phone Carmelo Phelps MD Primary Care Provider Aristeo Fleming Unavailable [phone] Allergies No Known Allergies Reason For Referral No Information Medications Medication SIG (Take, Route, Frequency, Duration) [...] C Complex - as directed Orally Active Immunizations Vaccine Route Administration Date Status Comme nts Influenza Unknown 12/16/2022 Administered Social History Alcohol Screen Question Answer Notes Did you [...] Never (0 point) Points 3 Interpretation Negative Section Notes: Nonsmoker; 2 beers QD Nonsmoker; at least 3-5 drin ks QD Nonsmoker; at least 3-5 drin ks QD; decreased alcohol consumption significantly as of the 06/2023 OV Problems Problem Type SNOMED Code ICD Code Onset Dates Problem Status W/U Status Risk Notes Problem [id number] Elevated liver function tests (R79.89) Active confirmed Problem 855805415 Fatty liver (K76.0) Active confirmed Vital Signs Blood pressure diastolic 00 mm Hg 07/08/2023 Height 74 in 07/08/2023 Blood pressure systolic 00 mm Hg 07/08/2023 Weight 200 lbs 07/08/2023 BMI 25.68 kg/m2 07/08/2023 Encounters Encounter Location Date Provider Diagnosis [facility] [address] [place] [address] 07/08/2023 Aristeo Mercado Fatty liver K76.0 and Elevated liver function tests R79.89 Assessments Encounter Date Diagnosis (ICD Code) Assessment Notes Treatment Notes Treatment Clinical Notes Section Notes 07/08/2023 Elevated liver function tests (ICD-10 - R79.89) Overall, Diego appears to be doing much better based on his history of positive lifestyle modifications, improvement in his laboratories, and his good clinical appearance. All of this has had a very positive impact on his general health, as well as specifically in regard to his underlying liver disease. As such, I did advise him to certainly continue this. I did stress to him the importance of avoiding alcohol completely given his history of alcohol abuse, as well as maintaining optimal control of his diabetes. Based on his negative liver workup and the improvement in his laboratories, I don't think he requires a liver biopsy nor any other specific intervention in this regard. I shall check a liver profile today to hopefully see that things have remained normal. If things remain well I will plan to see him in one year for a followup visit. At that point I will schedule him for his followup screening colonoscopy as it will have been almost 10 years since his exam in 2014. I did advise him to call me prior to that if he has any problems or questions I can be of assistance with. Diego was very comfortable with this plan. Thank you again for allowing me to participate in Diego's care. I shall continue to keep you advised of his progress. 07/08/2023 Fatty liver (ICD-10 - K76.0) Continue complete avoidance of alcohol, eating healthy, losing weight, and exercising. Overall, Diego appears to be doing much better based on his history of positive lifestyle modifications, improvement in his laboratories, and his good clinical appearance. All of this has had a very positive impact on his general health, as well as specifically in regard to his underlying liver disease. As such, I did advise him to certainly continue this. I did stress to him the importance of avoiding alcohol completely given his history of alcohol abuse, as well as maintaining optimal control of his diabetes. Based on his negative liver workup and the improvement in his laboratories, I don't think he requires a liver biopsy nor any other specific intervention in this regard. I shall check a liver profile today to hopefully see that things have remained normal. If things remain well I will plan to see him in one year for a followup visit. At that point I will schedule him for his followup screening colonoscopy as it will have been almost 10 years since his exam in 2014. I did advise him to call me prior to that if he has any problems or questions I can be of assistance with. Diego was very comfortable with this plan. Thank you again for allowing me to participate in Diego's care. I shall continue to keep you advised of his progress. Plan Of Treatment Pending Test Test Name Order Date LIVER PROFILE 07/08/2023 LIVER PROFILE 12/18/2022 IRON + IBC (FE) 12/18/2022 CBC w DIFF 12/18/2022 FLUOR. ANTINUCLEAR AB SCREEN (CHASTITY) 06/2022 Future Test Test Name Order Date COLONOSCOPY 07/19/2014 Next Appt Details Provider Name:Aristeo Mercado , 07/14/2024 01:00:00 PM, [address] [place] [address], [place] [address], [place], [address], Insurance Providers Payer Name Payer Address Payer Phone Subscriber Number Group Number Insured Name Patient Relationship to Insured Coverage Start Date Coverage End Date [facility] [address] [place], [place] [id number] [phone] [id number] DIEGO Self - patient is the insured Medical (General) History Medical History History ICD Code Denies MT,CVA,Lung disease,renal disease NIDDM Elevated LFT's due to fatty liver and EtOH. His liver workup was otherwise negative in 12/2022 Negative screening colonoscopy in 10/2014 Surgical History Surgery Date(Month/Year) Discectomy--lower back--x 2 Stress fracture toe
--- OUTSIDE RECORDS SUMMARY | 2024-07-07 11:34 | XMS_ITS ---
Author Organization Carmelo Phelps MD Address [address] [place] [phone] Care Team Providers Care Set Up Mold Technician Name Role Phone Carmelo Phelps Primary Care Provider [phone] REASON FOR VISIT liver Encounters Encounter Location Date Provider Diagnosis Carmelo Phelps MD [address] [place] [phone] 06/07/2024 Carmelo Phelps Type 2 diabetes mellitus without complication E11.9 Assessments Encounter Date Diagnosis (ICD Code) Assessment Notes Treatment Notes Treatment Clinical Notes Section Notes 06/07/2024 Type 2 diabetes mellitus without complication (ICD-10 - E11.9) Plan Of Treatment Pending Test Test Name Order Date Liver Panel 06/07/2024 Next Appt Details Provider Name:Carmelo carty, 07/12/2024 08:15:00 AM, [address], [address] [place] [address], [phone], Provider Name:Carmelo Dominguez ier, 04/26/2025 07:00:00 AM, [address], [address], [place], [phone], Provider Name:Carmelo Dominguez ier, 05/03/2025 09:30:00 AM, [address], [address], [place], [phone], Progress Notes * Salo SERRANO SDOB:1965 (59 yo M)Acc No.[id number]:06/07/2024 Progress Note Patient:?Salo SERRANO Provider:?Carmelo Phelps MD :1965???Age:59 Y???Sex:Male Timmy e:06/07/2024 Address:[address] [place], [place] [id number] Subjective: * Chief Complaints: * ???1. Liver. * Medical History:? Objective: * Vitals:? Assessment: * Assessment: 1.?Type 2 diabetes mellitus without complication - E11.9??? Plan: * Treatment: * * The named appointment provid er may or may not be the originator of this progress note, and it is not deemed complete until electronically signed by the appointment provider. Sign off status: Pending * Provider:?Carmelo Phelps MD Date:?0 06/07/2024 Generated for Cindy palacios/Breanne/eTsolomonsmitting on:?07/07/2024 11:34 AM EDT
--- OUTSIDE RECORDS SUMMARY | 2024-07-07 11:34 | XMS_ITS ---
Author Organization [facility] Address [address] [place] [address] Care Team Providers Care Manager Technical Sales Name Role Phone Carmelo Phelps MD Primary Care Provider Aristeo Fleming Unavailable [phone] Allergies No Known Allergies REASON FOR VISIT Patient presents today for a fatty liver Medications Medication SIG (Take, Route, Frequency, Duration) [...] Once a day for 30 day(s) Active Social History Alcohol Screen Question Answer Notes [...] Points 3 Interpretation Negative Section Notes: Nonsmoker; at least 3-5 drin ks QD; decreased alcohol consumption significantly as of the 06/2023 OV Vital Signs Blood pressure systolic 00 mm Hg 07/08/19 24 Blood pressure diastolic 00 mm Hg 024 Height 74 in 07/08/2023 Weight 200 lbs 07/08/2023 BMI 25.68 kg/m2 07/08/2023 Encounters Encounter Location Date Provider Diagnosis [facility] [address] [place] [address] 07/08/2023 Aristeo Mercado Fatty liver K76.0 and Elevated liver function tests R79.89 Assessments Encounter Date Diagnosis (ICD Code) Assessment Notes Treatment Notes Treatment Clinical Notes Section Notes 07/08/2023 Fatty liver (ICD-10 - K76.0) [...] keep you advised of his progress. 07/08/2023 Elevated liver function tests (ICD-10 - [...] advised of his progress. Plan Of Treatment Treatment Notes Assessment Notes Fatty liver Continue complete av oidance of alcohol, eating healthy, losing weight, and exercising. Pending Test Test Name Order Date LIVER PROFILE 07/08/2023 Next Appt Details Follow Up: 1 Year, Reason: Provider Name:Aristeo Mercado , 07/14/2024 01:00:00 PM, [address] [place] [address], [address], [place], [address], Progress Notes * DIEGO SERRANODOB:1965 ( 58 yo M)Acc No.[id number]:07/08/2023 Progress Notes Patient:?DIEGO SERRANO Provider:?Aristeo Mercado MD :1965???Age:58 Y???Sex:Male Timmy e:07/08/2023 Address:[address] [place] [address], [facility] Pcp:Carmelo Phelps MD Subjective: * Chief Complaints: * ???Patient presents today fo r a fatty liver * HPI: ???incontinence:? I saw Diego in followup today in regard to his underlying history is elevated LFTs and fatty liver in relation to alcohol abuse, poorly controlled diabetes, and being overweight. ?Since I initially saw Diego for this issue in December of 2022 he reports that he has made significant progress in improving his lifestyle from a health standpoint. He has significantly, although not 100%, cut down on his alcohol intake. He has also been watching his diet and having better control of his diabetes. He has also been exercising regularly by his description. He reports that his hemoglobin A1c has gone from as high as 11 down to about 6. His liver profile when I saw him in December of 2022 was elevated with an AST of 65 and ALT of 95, but the liver enzymes normalized as of the end of January of 2023. His liver workup was otherwise completely negative and as we discussed at that time I felt his liver disease was related to his fatty liver secondary to alcohol use, poorly controlled diabetes, and his weight. ?He has been feeling very well in general. He has not noticed any signs of jaundice, increasing abdominal girth, pruritus, fatigue, nor edema. His most recent labs from early March showed a normal CBC with platelet count. * ROS:?General/Constitutional:?Change in appetite?denies.?Chills?denies.?Fatigue?denies.?Ophthalmologic:?Patient denies? Negative..?ENT:?Patient denies?Negative..?Respiratory:?Patient denies?No coughing/hemoptysis..?Cardiovascular:?Patient denies? No chest pain/orthopnea..?Gastrointestinal:?Comments?See HPI for details.?Genitourinary:?Patient denies? No dysuria/hematuria..?Incontinence?denies.?Musculoskeletal:?Patient denies? No specific arthralgias/myalgias..?Skin:?Patient denies?No rash/pruritus..?Neurologic:?Patient denies? No headaches/seizures..?Psychiatric:?Patient denies?Negative..? * Medical History:? * Surgical History:?Discectomy --lower back--x 2 Stress fracture toe * Hospitalization/Major Diagno stic Procedure:?No Hospitalization History. * Family History:?Father: dece ased, diagnosed with Diabetes, HTN (hypertension).?Mother: .?Paternal Grand Mother: diagnosed with Diabetes.? No colorectal cancer. Mom had Crohn's. * Social History:?Tobacco Use:?Tobacco Use/Smoking?Are you a: nonsmoker.?Drugs/Alcohol:?Alcohol Screen?Did you have a drink containing alcohol in the past year??Yes,?How often did you have a drink containing alcohol in the past year??2 to 3 times a week (3 points),?How many drinks did you have on a typical day when you were drinking in the past year??1 or 2 drinks (0 point),?How often did you have 6 or more drinks on one occasion in the past year??Never (0 point),?Points?3,?Interpretation?Negative.?Miscellaneous:?Marital status: Single. 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 ???Nonsmoker; at least 3-5 drinks QD; decreased alcohol consumption significantly as of the 06/2023 OV. * Medications:?TakingVitamin D 50 MCG (2000 UT) Tablet 1 tablet Orally Once a dayVitamin B + C Complex - Tablet as directed Orally Fish Oil 1000 MG Capsule 1 capsule Orally Once a dayJanuvia 50 MG Tablet TAKE 1 TABLET BY MOUTH ONCE DAILY DIRECTED Oral , Notes: E119,UnavailablemetFORMIN HCl ER 750 MG Tablet Extended Release 24 Hour TAKE 1 TABLET BY MOUTH EVERY DAY WITH THE EVENING MEAL Oral , Notes: E119,UnavailableTaking Vitamin D 50 MCG (2000 UT) Tablet 1 tablet Orally Once a dayTaking Vitamin B + C Complex - Tablet as directed Orally Taking Fish Oil 1000 MG Capsule 1 capsule Orally Once a dayTaking Januvia 50 MG Tablet TAKE 1 TABLET BY MOUTH ONCE DAILY DIRECTED Oral , Notes: E119,UnavailableTaking metFORMIN HCl ER 750 MG Tablet Extended Release 24 Hour TAKE 1 TABLET BY MOUTH EVERY DAY WITH THE EVENING MEAL Oral , Notes: E119,UnavailableDiscontinuedTadalafil 20 MG Tablet TAKE 1/2 TABLET BY MOUTH ONCE A DAY NEEDED. Oral Medication List reviewed and reconciled with the patientDiscontinued Tadalafil 20 MG Tablet TAKE 1/2 TABLET BY MOUTH ONCE A DAY NEEDED. Oral Medication List reviewed and reconciled with the patient * Allergies:?N.K.D.A.yes[Aller gies Verified] Objective: * Vitals:?Wt: 200 lbs, Ht: 74 in, BMI:25.68 Index, BP: 00/00 mm Hg. * Examination: ???General Examination: ?GENERAL APPEARANCE:?pleasant, well nourished, well developed, in no acute distress.?EYES:?sclera non-icteric.?ORAL CAVITY:?mucosa moist.?NECK/THYROID:?no cervical lymphadenopathy, neck supple.?SKIN:?nonjaundiced, no spider angiomata..?HEART:?S1, S2 normal.?LUNGS:?clear to auscultation bilaterally.?ABDOMEN:?normal bowel sounds, no guarding or rigidity, no hepatosplenomegaly, no masses palpable, soft, nontender, nondistended..?EXTREMITIES:?no edema.?NEUROLOGIC:?alert and oriented.? Assessment: * Assessment: 1.?Fatty liver - K76.0 (Prim paloma)?2.?Elevated liver function tests - R79.89? Overall, Diego appears to be doing much [...] almost 10 years since his exam in 2015. I did advise him to call me prior to that if he has any problems or questions I can be of assistance with. Diego was very comfortable with this plan. Thank you again for allowing me to participate in Diego's care. I shall continue to keep you advised of his progress. Plan: * Treatment: 2.?Elevated liver function t ests?LAB: LIVER PROFILE * Procedure Codes:?3017F COLOR ECTAL CA SCREEN DOC [id number] TOBACCO NON-VURVF9368 BP SCR NOT PRFRM REC REASON NOS * Preventive Medicine:? ??Counseling:?Care goal follow-up plan:?Above Normal BMI Follow-up?Giving encouragement to exercise,?BMI management provided?Yes.? * Follow Up:?1 Year * * Sign off status: Completed true * Provider:?Aristeo Mercado MD Date:? 024 Generated for Cindy palacios/Breanne/Palmirasmitting on:?07/07/2024 11:34 AM EDT History and Physical Notes * HPI (History of Present Illness) Category Sub-Category Detail Notes Category Not es incontinence I saw Diego in followup today in regard to his underlying history is elevated LFTs and fatty liver in relation to alcohol abuse, poorly controlled diabetes, and being overweight. Since I initially saw Diego for this issue in December of 2022 he reports that he has made significant progress in improving his lifestyle from a health standpoint. He has significantly, although not 100%, cut down on his alcohol intake. He has also been watching his diet and having better control of his diabetes. He has also been exercising regularly by his description. He reports that his hemoglobin A1c has gone from as high as 11 down to about 6. His liver profile when I saw him in December of 2022 was elevated with an AST of 65 and ALT of 95, but the liver enzymes normalized as of the end of January of 2023. His liver workup was otherwise completely negative and as we discussed at that time I felt his liver disease was related to his fatty liver secondary to alcohol use, poorly controlled diabetes, and his weight. He has been feeling very well in general. He has not noticed any signs of jaundice, increasing abdominal girth, pruritus, fatigue, nor edema. His most recent labs from early March showed a normal CBC with platelet count. Examination Category Sub-Category Detail Notes Category Not es General Examination GENERAL APPEARANCE: pleasant , well [...]
--- OUTSIDE RECORDS SUMMARY | 2024-07-07 11:35 | XMS_ITS ---
Author Organization Carmelo Phelps MD Address [address] [place] [phone] Care Team Providers Care Rental Sales Agent Name Role Phone Carmelo Phelps Primary Care Provider REASON FOR VISIT PS-Message for Faina for Dr. Phelps Encounters Encounter Location Date Provider Diagnosis Carmelo Phelps MD [address] [facility] [address] [place] [phone] 06/30/2024 Carmelo Phelps Plan Of Treatment Next Appt Details Provider Name:Carmelo carty, 07/12/2024 08:15:00 AM, [address] [place] [address], [address], [phone], Provider Name:Carmelo carty, 04/26/2025 07:00:00 AM, [address] [place] [address], [address], [phone], Provider Name:Carmelo carty, 05/03/2025 09:30:00 AM, [address] [facility] [address], [place], [place], [phone], Progress Notes * Salo SERRANO SDOB:1965 (59 yo M)Acc No.[id number]:06/30/2024 Patient:?Salo SERRANO S :1965???Age:59 Y???Sex:Male Address:[address] [place] [phone] * true * Date:? Generated for Cindy palacios/Breanne/eTransmitting on:?07/07/2024 11:34 AM EDT
== END 2024-07-07 10:04 | disposition home or self-care (01) ==
LOC: HO.HMGCX 10:03
PROVIDERS: PCP Internal Medicine; Visit Provider Internal Medicine
DX: D72.820 Lymphocytosis (symptomatic) (principal)
CPT/HCPCS: 76700

== ENCOUNTER → 2024-07-07 10:04 | Outpatient (BNV) | payer BC, SELFPAY | PROVIDERS: PCP Internal Medicine; Visit Provider Radiology Diagnostic Radiology | DX: K76.0 Fatty (change of) liver, not elsewhere classified (principal) | CPT/HCPCS: 76700 ==

== ENCOUNTER 2024-07-12 10:44 | Outpatient (REF) | payer BC, SELFPAY ==
[2024-07-12 11:07] LABS: Basophils Absolute Auto 0.1 X10*3/uL (0.0-0.2); Basophils Percent Auto 0.5 % (0-2); Eosinophils Absolute Auto 0.3 X10*3/uL (0.0-0.4); Eosinophils Percent Auto 2.3 % (0-4); Hematocrit 42.1 % (42.0-52.0); Hemoglobin 13.8 g/dl (14.0-18.0); Imm Gran Abs Auto 0.04 X10*3/uL (0.00-0.03); Imm Gran Pct Auto 0.4 % (0.0-0.4); Lymphocytes Percent Auto 62.5 % (20-40); MANUAL DIFF FLAG SCAN; Mean Corpuscular HGB Conc 32.8 g/dl (31.0-36.0); Mean Corpuscular Hemoglobin 31.9 pg (27.0-33.0); Mean Corpuscular Volume 97.5 fL (80.0-98.0); Mean Platelet Volume 9.9 fL (9.4-12.4); Monocytes Absolute Auto 0.6 X10*3/uL (0.1-1.2); Monocytes Percent Auto 5.8 % (2-11); Neutrophils Absolute Auto 3.2 x10*3/uL (2.0-8.3); Neutrophils Percent Auto 28.5 % (45-73); Platelet Count 223 X10*3/uL (160-400); Red Blood Count 4.32 X10*6/uL (4.60-5.80); Red Cell Distribution Width 13.1 % (11.0-16.0); SCAN SMEAR FLAG 1
[2024-07-12 11:17] LABS: Lymphocytes Absolute Auto 6.9 X10*3/uL (1.2-4.9)
[2024-07-12 11:25] LABS: Alanine Aminotransferase 81 U/L (0-40); Albumin Level 4.3 g/dL (3.5-5.0); Aspartate Amino Transferase 65 U/L (5-37); Bilirubin Direct 0.2 mg/dL (0.0-0.5); Bilirubin Total 0.5 mg/dL (0.0-1.0); Total Protein 7.1 g/dL (6.5-8.0)
[2024-07-12 11:54] LABS: Alkaline Phosphatase 63 U/L (39-117)
[2024-07-12 12:03] LABS: SLIDE REVIEW VERIFIED
== END 2024-07-12 10:45 | disposition home or self-care (01) ==
LOC: HO.LNP 10:44
PROVIDERS: Visit Provider Internal Medicine
DX: R74.8 Abnormal levels of other serum enzymes (principal); D72.820 Lymphocytosis (symptomatic)
CPT/HCPCS: 80076; 85025

== ENCOUNTER → 2024-08-13 13:40 | Outpatient (BNV) | payer BC, SELFPAY | PROVIDERS: PCP Internal Medicine; Referring Provider Internal Medicine; Visit Provider Internal Medicine | DX: D72.820 Lymphocytosis (symptomatic) (principal) | CPT/HCPCS: 99214 ==

== ENCOUNTER 2024-11-10 15:18 | Outpatient (REF) | payer BC, SELFPAY ==
--- OUTSIDE RECORDS SUMMARY | 2024-06-30 18:09 | XMS_ITS ---
Author Organization Carmelo Phelps MD Address [address] [place] [phone] Care Team Providers Care Animal Therapist Name Role Phone Carmelo Phelps Primary Care Provider REASON FOR VISIT PS-Message for Faina for Dr. Phelps Encounters Encounter Location Date Provider Diagnosis Carmelo Phelps MD [address] [facility] [address] [place] [phone] 06/30/2024 Carmelo Phelps Plan Of Treatment Next Appt Details Provider Name:Carmelo carty, 04/26/2025 07:00:00 AM, [address] [place] [address], [address], [phone], Provider Name:Carmelo carty, 05/03/2025 09:30:00 AM, [address] [place] [address], [address], [phone], Progress Notes * Salo SERRANO SDOB:1965 (59 yo M)Acc No.[id number]:06/30/2024 Patient: Salo TURPIN :1965 A ge:59 Y S ex:Male Address:[address] [place] [phone] * true * Date: Generated for Cindy palacios/Breanne/Palmirasmitting on: 0 11/10/2024 04:32 PM EDT
--- OUTSIDE RECORDS SUMMARY | 2024-07-07 08:30 | XMS_ITS ---
Author Organization Carmelo Phelps MD Address [address] [place] [phone] Care Team Providers Care Soda Dispenser Name Role Phone Carmelo Phelps Primary Care Provider REASON FOR VISIT Message for FainaMauro Luz Jul 08 is not good for me. Encounters Encounter Location Date Provider Diagnosis Carmelo Phelps MD [address] [place] [address] [place] [phone] 07/07/2024 Carmelo Phelps Plan Of Treatment Next Appt Details Provider Name:Carmelo carty, 04/26/2025 07:00:00 AM, [address] [place] [address], [address], [phone], Provider Name:Carmelo carty, 05/03/2025 09:30:00 AM, [address] [place] [address], [address], [phone], Progress Notes * Salo SERRANO SDOB:1965 (59 yo M)Acc No.[id number]:07/07/2024 Patient: Salo TURPIN :1965 A ge:59 Y S ex:Male Address:[address] [place] [phone] * true * Date: Generated for Cindy palacios/Breanne/Palmirasmitting on: 0 11/10/2024 04:32 PM EDT
--- OUTSIDE RECORDS SUMMARY | 2024-07-12 04:15 | XMS_ITS ---
Author Organization Carmelo Phelps MD Address [address] [place] [phone] Care Team Providers Care Revenue Settlements Administrator Name Role Phone Carmelo Phelps Primary Care Provider [phone] Results Component Value Reference Range Notes Complete Blood Count Auto Di ff Reviewed date:07/12/2024 12:48:01 PM Interpretation: Performing Lab:[facility], [address] [place] [phone] Notes/Report: White Blood Count 11.0 4.8-10.8 X10*3/uL Red Blood Count 4.32 4.60-5.80 X10*6/uL Hemoglobin 13.8 14.0-18.0 g/dl Hematocrit 42.1 42.0-52.0 % Mean Corpuscular Volume 97.5 80.0-98.0 fL Mean Corpuscular Hemoglobin 31.9 27.0-33.0 pg Mean Corpuscular HGB Conc 32.8 31.0-36.0 g/dl Red Cell Distribution Width 13.1 11.0-16.0 % Platelet Count 223 160-400 X10*3/uL Mean Platelet Volume 9.9 9.4-12.4 fL Neutrophils Percent Auto 28.5 45-73 % Imm Gran Pct Auto 0.4 0.0-0.4 % Lymphocytes Percent Auto 62.5 20-40 % Monocytes Percent Auto 5.8 2-11 % Eosinophils Percent Auto 2.3 0-4 % Basophils Percent Auto 0.5 0-2 % NRBC Pct Auto 0.0 0.0-0.2 /100WBC Neutrophils Absolute Auto 3.2 2.0-8.3 x10*3/u L Imm Gran Abs Auto 0.04 0.00-0.03 X10*3/uL Lymphocytes Absolute Auto 6.9 1.2-4.9 X10*3/u L Monocytes Absolute Auto 0.6 0.1-1.2 X10*3/uL Eosinophils Absolute Auto 0.3 0.0-0.4 X10*3/u L Basophils Absolute Auto 0.1 0.0-0.2 X10*3/uL NRBC Abs Auto 0.000 0.0-0.012 X10*3/uL White Blood Count 11.0 4.8-10.8 X10*3/uL Red Blood Count 4.32 4.60-5.80 X10*6/uL Hemoglobin 13.8 14.0-18.0 g/dl Hematocrit 42.1 42.0-52.0 % Mean Corpuscular Volume 97.5 80.0-98.0 fL Mean Corpuscular Hemoglobin 31.9 27.0-33.0 pg Mean Corpuscular HGB Conc 32.8 31.0-36.0 g/dl Red Cell Distribution Width 13.1 11.0-16.0 % Platelet Count 223 160-400 X10*3/uL Mean Platelet Volume 9.9 9.4-12.4 fL Neutrophils Percent Auto 28.5 45-73 % Imm Gran Pct Auto 0.4 0.0-0.4 % Lymphocytes Percent Auto 62.5 20-40 % Monocytes Percent Auto 5.8 2-11 % Eosinophils Percent Auto 2.3 0-4 % Basophils Percent Auto 0.5 0-2 % NRBC Pct Auto 0.0 0.0-0.2 /100WBC Neutrophils Absolute Auto 3.2 2.0-8.3 x10*3/u L Imm Gran Abs Auto 0.04 0.00-0.03 X10*3/uL Lymphocytes Absolute Auto 6.9 1.2-4.9 X10*3/u L Monocytes Absolute Auto 0.6 0.1-1.2 X10*3/uL Eosinophils Absolute Auto 0.3 0.0-0.4 X10*3/u L Basophils Absolute Auto 0.1 0.0-0.2 X10*3/uL NRBC Abs Auto 0.000 0.0-0.012 X10*3/uL COR RECTED REPORT COR RECTED REPORT Liver Panel Reviewed date:07/12/2024 12:40:09 PM Interpretation: Performing Lab:[facility], [address] [place] [phone] Notes/Report: Bilirubin Total 0.5 0.0-1.0 mg/dL Bilirubin Direct 0.2 0.0-0.5 mg/dL Aspartate Amino Transferase 65 5-37 U/L Alanine Aminotransferase 81 0-40 U/L Total Protein 7.1 6.5-8.0 g/dL Albumin Level 4.3 3.5-5.0 g/dL Alkaline Phosphatase 63 39-117 U/L REASON FOR VISIT Liver Profile Encounters Encounter Location Date Provider Diagnosis Carmelo Phelps MD [address] [place], [place] [phone] 07/12/2024 Carmelo Phelps Elevated liver enzymes R74.8 and Lymphocytosis D72.820 Assessments Encounter Date Diagnosis (ICD Code) Assessment Notes Treatment Notes Treatment Clinical Notes Section Notes 07/12/2024 Elevated liver enzymes (ICD-10 - R74.8) 07/12/2024 Lymphocytosis (ICD-10 - D72.820) Plan Of Treatment Next Appt Details Provider Name:Carmelo Dominguez ier, 04/26/2025 07:00:00 AM, [address] [facility], Suite [facility], [place], [place], [phone], Provider Name:Carmelo Dominguez ier, 05/03/2025 09:30:00 AM, [address] [facility], [address], [place], [place], [phone], Progress Notes * Salo SERRANO SDOB:1965 (59 yo M)Acc No.[id number]:07/12/2024 Progress Note Patient: Salo TURPIN Provider: Jose Phelps MD :1965 A ge:59 Y S ex:Male Date:07/12/2024 Address:[address] [place], [place] [phone] Subjective: * Chief Complaints: * 1 . Liver Profile. * Medical History: Objective: * Vitals: Assessment: * Assessment: 1. E levated liver enzymes - R74.8 (Primary) 2 . L ymphocytosis - D72.820? Plan: * Treatment: 2. L ymphocytosis L AB: Complete Blood Count Auto Diff (Collection Date & Time - 07/12/2024 08:15 AM) * Procedure Codes: 3 6415 VENIPUNCT, ROUTINE* * * The named appointment provid er may or may not be the originator of this progress note, and it is not deemed complete until electronically signed by the appointment provider. Sign off status: Pending * Provider: Jose Phelps MD Date: 0 07/12/2024 Generated for Cindy palacios/Breanne/eTsolomonsmitting on: 11/10/2024 04:32 PM EDT
--- OUTSIDE RECORDS SUMMARY | 2024-10-25 04:30 | XMS_ITS ---
Author Organization [facility] Address [address] [place] [phone] Care Team Providers Care Vocal Artist Name Role Phone Mattie DELGADO, Carmelo Primary Care Provider Aristeo Fleming [phone] REASON FOR VISIT screening colon Encounters Encounter Location Date Provider Diagnosis [facility] Outpatient [address] [place] [phone] 10/25/2024 Aristeo Mercado Plan Of Treatment Next Appt Details Provider Name:Aristeo Mercado , 02/04/2025 12:00:00 PM, [address] [place] [address], [phone], Progress Notes * DIEGO SERRANODOB:1965 ( 59 yo M)Acc No.[id number]:10/25/2024 COLON WITH MAC Patient: DIEGO TURPIN Provider: Ortega Mercado MD :1965 A ge:59 Y S ex:Male Date:10/25/2024 Address:[address] [place], [place] [phone] Pcp:Carmelo Phelps MD Subjective: * Chief Complaints: [...] 0 10/25/2024 Generated for Cindy palacios/Breanne/Foster on: 0 11/10/2024 04:31 PM EDT
--- OUTSIDE RECORDS SUMMARY | 2024-11-10 16:31 | XMS_ITS | Patient Health Record ---
Author Organization Carmelo Phelps MD Address [address] [place] [phone] Care Team Providers Care Technology Analyst Name Role Phone Carmelo Phelps Primary Care Provider Allergies No Known Allergies Results Component Value Reference Range Notes Hemoglobin A1c Reviewed date:01/05/2024 03:15:08 PM Interpretation: Performing Lab: Notes/Report: Hemoglobin A1c 6.1 Complete Blood Count Auto Di ff Reviewed date:04/26/2024 12:33:59 PM Interpretation:04-26-24 Performing Lab:[facility], [address] [place] [phone] Notes/Report: White Blood Count 11.8 4.8-10.8 X10*3/uL [...] 0.000 0.0-0.012 X10*3/uL C ORRECTED REPORT Comprehensive [place]. Panel Fa st Reviewed date:04/19/2024 05:54:44 PM Interpretation: Performing Lab:[facility], [address] [place] [phone] Notes/Report: Sodium 140 135-145 mmol/L Potassium 4.1 [...] Panel Reviewed date:04/19/2024 01:03:02 PM Interpretation: Performing Lab:[address] [phone] Notes/Report: Triglycerides 98 <150 mg/dL Desirable Triglyceride: [...] (Free>4and<10) Reviewed date:04/19/2024 01:02:54 PM Interpretation: Performing Lab:[facility], [address] [place] [phone] Notes/Report: PSA,Total (Free>4and<10) 0.82 0.00-4.00 ng/mL A [...] Random Reviewed date:04/19/2024 01:02:46 PM Interpretation: Performing Lab:[address] [phone] Notes/Report: Creatinine Urine 94.33 Microalbumin Urine < 5.0 Microalbum/Creatinine Ratio Ur TNP <30 ug/mg cr Unable to calculate albumin/creatinine ratio due to low microalbumin or creatinine result. Hemoglobin A1c Reviewed date:04/19/2024 01:03:10 PM Interpretation: Performing Lab:[address] [phone] Notes/Report: Hemoglobin A1c % 5.6 <6.0 % [...] average glucose, using the formula of the I1G-Yvqfkhy Average Glucose study (ADAG), Diabetes Care, Vol.31,#8, Oct. 2007 Complete Blood Count Auto Di ff Reviewed date:07/12/2024 12:48:01 PM Interpretation: Performing Lab:[address] [phone] Notes/Report: White Blood Count 11.0 4.8-10.8 X10*3/uL [...] Panel Reviewed date:07/12/2024 12:40:09 PM Interpretation: Performing Lab:[facility], [address] [place] [phone] Notes/Report: Bilirubin Total 0.5 0.0-1.0 mg/dL Bilirubin Direct 0.2 0.0-0.5 mg/dL Aspartate Amino Transferase 65 5-37 U/L Alanine Aminotransferase 81 0-40 U/L Total Protein 7.1 6.5-8.0 g/dL Albumin Level 4.3 3.5-5.0 g/dL Alkaline Phosphatase 63 39-117 U/L Glucose, finger stick Reviewed date:01/05/2024 03:10:28 PM Interpretation: Performing Lab: Notes/Report: Value 121 Complete Blood Count Auto Di ff Reviewed date:04/26/2024 03:08:02 PM Interpretation: Performing Lab:[facility], [address] [place] [phone] Notes/Report: White Blood Count 10.8 4.8-10.8 X10*3/uL [...] Panel Reviewed date:04/26/2024 01:31:41 PM Interpretation: Performing Lab:[address] [phone] Notes/Report: Bilirubin Total 0.4 0.0-1.0 mg/dL Bilirubin Direct 0.2 0.0-0.5 mg/dL Aspartate Amino Transferase 68 5-37 U/L Alanine Aminotransferase 76 0-40 U/L Total Protein 7.8 6.5-8.0 g/dL Albumin Level 4.6 3.5-5.0 g/dL Alkaline Phosphatase 56 39-117 U/L Pathologist Review - CBC Reviewed date:04/26/2024 12:34:16 PM Interpretation:04-26-24 Performing Lab:[facility], [address] [place] [phone] Notes/Report: Pathologist Review - CBC SEE NOTE - Mild lymphocytosis with occasional variant lymphoid cells and smudge cells: consider a lymphoproliferative disorder(e.g. CLL) vs a reactive process. Reviewed by Laura Lindsay MD SLIDE REVIEW Reviewed date:04/21/2024 08:07:18 PM Interpretation: Performing Lab:[facility], [address] [place] [phone] Notes/Report: SLIDE REVIEW VERIFIED UA CC w/rflx Micro + Cult Reviewed date:04/19/2024 01:34:57 PM Interpretation: Performing Lab:[facility], [address] [place] [phone] Notes/Report: [id number] Urine, Clean Catch Color Urine Yellow Appearance Urine Clear PH 5.5 5.0-9.0 Glucose Urine UA Negative Negative mg/dL Urine Blood Negative Negative Specific [place] - Urine 1.025 1.005-1.025 Urine Protein Negative Neg-Trace mg/dL Urine Ketones Negative Negative mg/dL Nitrite Urine Negative Negative Leukocyte Esterase Urine Negative Negative SLIDE REVIEW Reviewed date:04/26/2024 01:32:00 PM Interpretation: Performing Lab:[facility], [address] [place] [phone] Notes/Report: SLIDE REVIEW VERIFIED Complete Blood Count Man Dif Reviewed date:06/05/2024 06:20:36 PM Interpretation: Performing Lab:[facility], [address] [place] [phone] Notes/Report: White Blood Count 11.2 4.8-10.8 X10*3/uL [...] Morphology Comment NORMAL RBC Morphology NORMAL Leukemia/Lymphoma Shwethaal. Rodríguez d Reviewed date:06/10/2024 12:59:09 PM Interpretation: Performing Lab:[address] [address] Notes/Report: [place] [id number] 1612 blood LLE Interpretation See Note See repor t from Pose in the EMR. Comprehensive Met. Panel Reviewed date:06/07/2024 12:53:51 PM Interpretation: Performing Lab:[facility], [address] [place] [phone] Notes/Report: Sodium 136 135-145 mmol/L Potassium 4.0 [...] Dehydrogenase Reviewed date:06/05/2024 06:19:58 PM Interpretation: Performing Lab:[address] [phone] Notes/Report: Lactate Dehydrogenase 202 118-273 U/L Beta-2 Microglobulin, Serum Reviewed date:06/07/2024 12:53:24 PM Interpretation: Performing Lab:[address] [phone] Notes/Report: Beta-2 Microglobulin, Serum 1.80 < OR = 2.51 mg/L THIS TEST WAS PERFORMED AT: [facility] [address] [place] [phone] BJORN MCCORMICK MD Immunofixation Pnl, Serum Reviewed date:06/08/2024 08:00:23 PM Interpretation: Performing Lab:[facility], [address] [place] [phone] Notes/Report: IgG 237 947-4469 mg/dL IgA 347 47-310 mg/dL IgM 77 50-300 mg/dL THIS TEST WAS PERFORMED AT: [facility] [address] [place] [phone] BJORN MCCORMCIK MD Immunofixation Interpretation SEE NOTE Normal pattern. No monoclonal proteins detected. Hepatitis B,C Profile Reviewed date:06/07/2024 12:53:34 PM Interpretation: Performing Lab:[address] [phone] Notes/Report: Hepatitis B Surface Antibody NONREACTIVE Nonreactive Nonreactive: < 8.00 mIU/mL Hepatitis B Core Antibody Nonreactive Nonreactive Hepatitis C Antibody Nonreactive Nonreactive Antibodies to HCV not detected; does not exclude early acute HCV infection. Hepatitis B Surface Antigen Negative Negative US abdomen complete Reviewed date:07/09/2024 03:34:10 PM Interpretation: Performing Lab: Notes/Report: [facility] Adult Primary [facility] [place] [address] Ultrasound Report Signed Patient: Salo Baires MR#: [id number] 6 : 1965 Acct:[id number] Age/Sex: 59 / M ADM Date: 07/07/24 Loc: HO.HMGCX Attending Dr: Irvin Crockett MD Ordering Physician: Irvin Crockett MD Date of Service: 07/07/24 Procedure(s): US abdomen complete Accession Number(s): [id number] cc: Carmelo Phelps MD; Irvin Crockett MD CLINICAL HISTORY: ? Hepatosplenomegaly US abdomen complete. COMPARISON: US abdomen dated 05/13/22 at 16:18 EST Technique: Real time sonographic imaging, including color-flow imaging, was performed by the meter/relay technician. Multiple patient account representative static images were saved for review. [...] 07/09/24 1350 DD/ 1350 TD/TT: 07/09/24 1350 Stock Parts Fabricator: [facility] [address] [place] [address] [place] [address] Ultrasound Report Signed Patient: Salo Baires MR#: [id number] 6 : 1965 Acct:[id number] Age/Sex: 59 / M ADM Date: 07/07/24 Loc: HO.HMGCX Attending Dr: Irvin Crockett MD Ordering Physician: Irvin Crockett MD Date of Service: 07/07/24 Procedure(s): US abdomen complete Accession Number(s): [id number] cc: Carmelo Phelps MD; Irvin Crockett MD CLINICAL HISTORY: ? Hepatosplenomegaly US abdomen complete. COMPARISON: US abdom en dated 05/13/22 at 16:18 EST Technique: Real time sonographic imaging, including color-flow imaging, was performed by the meter/relay technician. Multiple patient account representative static images were saved for review. [...] 07/09/24 1350 DD/ 1350 TD/TT: 07/09/24 1350 Stock Parts Fabricator: SLIDE REVIEW Reviewed date:07/12/2024 12:39:59 PM Interpretation: Performing Lab:[facility], [address] [place] [phone] Notes/Report: SLIDE REVIEW VERIFIED Lactate Dehydrogenase Reviewed date:07/16/2024 04:59:11 PM Interpretation: Performing Lab:[facility], [address] [place] [phone] Notes/Report: Lactate Dehydrogenase 204 118-273 U/L [place]/Lambda Lt Ch,Free w ra t Reviewed date:07/19/2024 12:05:02 PM Interpretation: Performing Lab:[facility], [address] [place] [phone] Notes/Report: [place] Light Chain, Free Serum 16.5 3.3-19.4 mg/L Lambda Light Chain, Free Serum 10.3 5.7-26.3 mg/L [place]/Lambda Lt Ch Free Ratio 1.60 0.26-1.65 Free [...] these disorders. THIS TEST WAS PERFORMED AT: [facility] [address] [place] [phone] BJORN MCCORMICK MD [employer] Other Ref Reviewed date:07/28/2024 06:59:10 PM Interpretation: Performing Lab:[facility], [address] [place] [phone] Notes/Report: NeoType CLL profile+IgVH; CLL FISH panel [employer] Other Ref See Note See re port from Pose in the EMR. Complete Blood Count Auto Di ff (Not yet reviewed by provider) Interpretation: Performing Lab:[facility], [address] [place] [phone] Notes/Report: White Blood Count 15.5 4.8-10.8 X10*3/uL Red Blood Count 4.53 4.60-5.80 X10*6/uL Hemoglobin 14.1 14.0-18.0 g/dl Hematocrit 42.3 42.0-52.0 % Mean Corpuscular Volume 93.4 80.0-98.0 fL Mean Corpuscular Hemoglobin 31.1 27.0-33.0 pg Mean Corpuscular HGB Conc 33.3 31.0-36.0 g/dl Red Cell Distribution Width 13.2 11.0-16.0 % Platelet Count 175 160-400 X10*3/uL Mean Platelet Volume 9.6 9.4-12.4 fL Neutrophils Percent Auto 21.3 45-73 % Imm Gran Pct Auto 0.2 0.0-0.4 % Lymphocytes Percent Auto 72.0 20-40 % Monocytes Percent Auto 4.0 2-11 % Eosinophils Percent Auto 2.0 0-4 % Basophils Percent Auto 0.5 0-2 % NRBC Pct Auto 0.0 0.0-0.2 /100WBC Neutrophils Absolute Auto 3.3 2.0-8.3 x10*3/uL Imm Gran Abs Auto 0.03 0.00-0.03 X10*3/uL Lymphocytes Absolute Auto 11.1 1.2-4.9 X10*3/uL Monocytes Absolute Auto 0.6 0.1-1.2 X10*3/uL Eosinophils Absolute Auto 0.3 0.0-0.4 X10*3/uL Basophils Absolute Auto 0.1 0.0-0.2 X10*3/uL NRBC Abs Auto 0.000 0.0-0.012 X10*3/uL White Blood Count 15.5 4.8-10.8 X10*3/uL Red Blood Count 4.53 4.60-5.80 X10*6/uL Hemoglobin 14.1 14.0-18.0 g/dl Hematocrit 42.3 42.0-52.0 % Mean Corpuscular Volume 93.4 80.0-98.0 fL Mean Corpuscular Hemoglobin 31.1 27.0-33.0 pg Mean Corpuscular HGB Conc 33.3 31.0-36.0 g/dl Red Cell Distribution Width 13.2 11.0-16.0 % Platelet Count 175 160-400 X10*3/uL Mean Platelet Volume 9.6 9.4-12.4 fL Neutrophils Percent Auto 21.3 45-73 % Imm Gran Pct Auto 0.2 0.0-0.4 % Lymphocytes Percent Auto 72.0 20-40 % Monocytes Percent Auto 4.0 2-11 % Eosinophils Percent Auto 2.0 0-4 % Basophils Percent Auto 0.5 0-2 % NRBC Pct Auto 0.0 0.0-0.2 /100WBC Neutrophils Absolute Auto 3.3 2.0-8.3 x10*3/uL Imm Gran Abs Auto 0.03 0.00-0.03 X10*3/uL Lymphocytes Absolute Auto 11.1 1.2-4.9 X10*3/uL Monocytes Absolute Auto 0.6 0.1-1.2 X10*3/uL Eosinophils Absolute Auto 0.3 0.0-0.4 X10*3/uL Basophils Absolute Auto 0.1 0.0-0.2 X10*3/uL NRBC Abs Auto 0.000 0.0-0.012 X10*3/uL C ORRECTED REPORT C ORRECTED REPORT Comprehensive Met. Panel (No t yet reviewed by provider) Interpretation: Performing Lab:[facility], [address] [place] [phone] Notes/Report: Sodium 137 135-145 mmol/L Potassium 4.4 3.3-5.1 mmol/L Chloride 105 96-108 mmol/L Carbon Dioxide 26 22-29 mmol/L Anion Gap 10 12-20 Blood Urea Nitrogen 19 9-16 mg/dL Creatinine 0.90 0.5-1.4 mg/dL Creatinine Clr Calc Pharmacy 101.4 eGFR (calculated from the MDRD study equation) and eCrCl (calculated from the Cockcroft-Gault equation) are based on different parameters and may not yield comparable results. If eCrCl result is absurd, please check patient's height/weight. Estimated Glomerular Filt Rate > 60 Chronic Kidney Disease: Estimated GFR < 60 mL/min/1.73m2 Severe Kidney Disease: Estimated GFR < 15 mL/min/1.73m2 Glucose Random 105 60-115 mg/dL Calcium 9.4 8.4-10.2 mg/dL Bilirubin Total 0.8 0.0-1.0 mg/dL Aspartate Amino Transferase 73 5-37 U/L Alanine Aminotransferase 93 0-40 U/L Total Protein 7.3 6.5-8.0 g/dL Albumin Level 4.7 3.5-5.0 g/dL Alkaline Phosphatase 48 39-117 U/L SLIDE REVIEW (Not yet review ed by provider) Interpretation: Performing Lab:[facility], [address] [place] [phone] Notes/Report: SLIDE REVIEW VERIFIED Reason For Referral Reason lymphocytosis, go ov [...] 08/21/2021 Not-Taking Ketoconazole 2 % 1 application [employer] Installer ally Twice a day for 30 days [...] 09/15/2018 Administered Fluarix Quadrivalent Unknown 01/04/2019 Administered Sukumar tripp's Fluarix Quadrivalent IM Intramuscular 12/17/2019 Administe red [...] Problem Status W/U Status Risk Notes Problem 13247042 Lymphocytosis (D72.820) Active confirmed Problem 393148436 Exercise induced bronchospasm (J45.990) Active confirmed Problem 047351366 Erectile dysfunction due to diseases classified elsewhere (N52.1) Active confirmed Problem 3689396 Arthritis (M19.90) Active confirmed Problem 499394007 Lumbar disc dise ase (M51.9) Active confirmed Problem 47004276 Spermatocele (N43.40) Active confirmed Problem Type 2 diabetes mellitus without complication (E11.9) Active confirmed Problem 71788854 Acute idiopathic gout of right ankle (M10.071) Active confirmed Problem 46408239 Intervertebral lumbar disc disorder with myelopathy, 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) Active confirmed Problem 124411050 Pseudogout of le ft ankle (M11.272) Active confirmed Vital Signs Blood pressure diastolic 80 mm Hg 05/10/2024 Height 73 in 05/10/2024 Blood pressure systolic 122 mm Hg 05/10/2024 Weight 189 lbs 05/10/2024 BMI 24.93 kg/m2 05/10/2024 Encounters Encounter Location Date Provider Diagnosis Carmelo Phelps MD [address] [place] [id number] 11/24/2023 Carmelo Phelps Encounter for immunization Z23 Carmelo Phelps MD [address] [place] [id number] 04/19/2024 Carmelo Phelps Blood tests for routine general physical examination Z00.00 ; Lymphocytosis D72.820 and Type 2 diabetes mellitus without complication E11.9 Carmelo Phelps MD [address] [place] [address] [id number] 07/12/2024 Carmelo Phelps Elevated liver enzymes R74.8 and Lymphocytosis D72.820 Carmelo Phelps MD [address] [place] [id number] 01/05/2024 Carmelo Phelps Type 2 diabetes mellitus without complication E11.9 Carmelo Phelps MD [address] [place] [address] [id number] 04/26/2024 Carmelo Phelps Lymphocytosis D72.82 0 ; Annual physical exam Z00.00 ; Elevated LFTs R79.89 ; Type 2 diabetes mellitus without complication E11.9 ; Erectile dysfunction due to diseases classified elsewhere N52.1 ; Colon cancer screening Z12.11 and Depression screening Z13.31 Carmelo Phelps MD [address] [place] [address] [id number] 05/10/2024 Carmelo Phelps Lymphocytosis D72.82 0 ; Type 2 diabetes mellitus without complication E11.9 and Elevated LFTs R79.89 Carmelo Phelps MD [address] [place] [address] [id number] 05/04/2024 Carmelo Phelps MD [address] [place] [address] [id number] 11/24/2023 Carmelo Phelps MD [address] [place] [address] [id number] 01/21/2024 Carmelo Phelps MD [address] [place] [address] [id number] 01/21/2024 Carmelo Phelps MD [address] [place] [address] [id number] 01/24/2024 Carmelo Phelps MD [address] [place] [address] [id number] 01/28/2024 Carmelo Phelps MD [address] [place] [address] [id number] 02/18/2024 Carmelo Phelps MD [address] [place] [address] [id number] 02/20/2024 Carmelo Phelps MD [address] [place] [id number] 04/08/2024 Carmelo Phelps MD [address] [place] [address] [id number] 04/11/2024 Carmelo Phelps MD [address] [place] [address] [id number] 05/20/2024 Carmelo Phelps MD [address] [place] [address] [id number] 06/02/2024 Carmelo Phelps Erectile dysfunction due to diseases classified elsewhere N52.1 Carmelo Phelps MD [address] [place] [address] [id number] 06/02/2024 Carmelo Phelps MD [address] [place] [address] [id number] 06/02/2024 Carmelo Phelps MD [address] [place] [address] [id number] 06/04/2024 Carmelo Phelps MD [address] [place] [address] [id number] 06/30/2024 Carmelo Phelps MD [address] [place] [address] [id number] 06/30/2024 Carmelo Phelps MD [address] [place] [address] [id number] 07/07/2024 Carmelo Phelps Assessments Encounter Date Diagnosis (ICD Code) Assessment Notes Treatment Notes Treatment Clinical Notes Section Notes 11/24/2023 Encounter for immunization (ICD-10 - Z23) 04/19/2024 Blood tests for routine general physical examination (ICD-10 - Z00.00) 07/12/2024 Elevated liver enzymes (ICD-10 - R74.8) 01/05/2024 Type 2 diabetes mellitus without complication [...] COMPLETE ABDOMEN WITH LIVER ELASTOGRA PHY 05/16/2022 Complete Blood Count Auto Diff Comprehensive Met. Panel 11/10/2024 SLIDE REVIEW 11/10/2024 Next Appt Details Provider Name:Carmelo Dominguez ier, 04/26/2025 07:00:00 AM, [address] [facility], [address], [place], [place], [phone], Provider Name:Carmelo Dominguez ier, 05/03/2025 09:30:00 AM, [address], [address], [place], [place], [phone], Insurance Providers Payer Name Payer Address Payer Phone Subscriber Number Group Number Insured Name Patient Relationship to Insured Coverage Start Date Coverage End Date [employer] [address] [place], [place] [id number] Salo Baires Self - patient is the insured Medical (General) History Medical History History ICD Code Colonoscopy 11/10/14 - repeat 10 yrs w/Dr Mauro Mercado Surgical History Surgery Date(Month/Year) lumbar laminectomy 2003
--- OUTSIDE RECORDS SUMMARY | 2024-11-10 16:31 | XMS_ITS ---
Author Name [facility] Organization Unknown Assessment and Plan ID Update Date Source Alert Text [place] [id number] 01/05/2022 [place] [employer] COVID Vaccination: This patient has received the MOD, COVID-19, mRNA, Bivalent, 0.5 or 0.25mL vaccination on 01/05/2022 with lot number [id number] at [facility] [address] [place] [address].
--- OUTSIDE RECORDS SUMMARY | 2024-11-10 16:32 | XMS_ITS | Patient Health Record ---
Author Organization [facility] Address [address] [place] [address] Care Team Providers Care Embedded Software Architect Name Role Phone Carmelo Phelps MD Primary Care Provider Aristeo Fleming Unavailable [phone] Allergies No Known Allergies Reason For Referral No Information Medications Medication SIG (Take, Route, Frequency, Duration) Notes Start Date End Date Status Fish Oil 1000 MG 1 capsule Orally Onc e a day Active Vitamin B + C Complex - as directed Orally Active metFORMIN HCl ER 750 MG TAKE 1 TABLET BY MOUTH EVERY DAY WITH THE EVENING MEAL Oral for 30 E119,Unavailable Active Januvia 50 MG TAKE 1 TABLET BY MOUTH ONCE DAILY DIRECTED Oral for 30 E119,Unavailable Active Vitamin D 50 MCG (2000 UT) 1 tablet Orally Once a day for 30 day(s) Active Immunizations Vaccine Route Administration Date Status Comme nts Influenza Unknown 12/16/2022 Administered Influenza Unknown 12/02/2023 Administered Social History AUDIT-C (Standard) Question Answer Notes Did you have a drink contain ing alcohol in the past year? Yes How often did you have a dri nk containing alcohol in the past year? Daily or almost daily (4 points) How many drinks did you have on a typical day when you were drinking in the past year? 3 or 4 drinks (1 point) How often did you have six o r more drinks on one occasion in the past year? Never (0 point) Points 5 Interpretation Positive Section Notes: Nonsmoker; 2 beers QD Nonsmoker; at least 3-5 drin ks QD Nonsmoker; at least 3-5 drin ks QD; decreased alcohol consumption significantly as of the 06/2023 OV Nonsmoker; at least 3-5 drin ks QD; decreased alcohol consumption significantly as of the 06/2023 OV. Having reportedly 2-4 drinks per day as of the 06/2024 OV Problems Problem Type SNOMED Code ICD Code Onset Dates Problem Status W/U Status Risk Notes Problem Colon cancer screening (866062171) Colon cancer screening (Z12.11) Active confirmed Problem 079231260 Elevated liver function tests (R79.89) Active confirmed Problem 327201014 Fatty liver (K76.0) Active confirmed Problem Alcohol liver damage (K70.9) Active confirmed Vital Signs Temperature 98.0 degrees Fahrenheit 07/14/2024 Blood pressure diastolic 01 mm Hg 07/14/2024 Height 74 in 07/14/2024 Blood pressure systolic 001 mm Hg 07/14/2024 Weight 186.8 lbs 07/14/2024 BMI 23.98 kg/m2 07/14/2024 Procedures Procedure Date Ordered Date Performed Result Body Sit e COLONOSCOPY 07/14/2024 N/A Encounters Encounter Location Date Provider Diagnosis [facility] [address] [place] [id number] 07/14/2024 Aristeo Mercado Fatty liver K76.0 ; Alcohol liver damage K70.9 ; Elevated liver function tests R79.89 and Colon cancer screening Z12.11 [facility] [address] [place] [phone] 10/15/2024 Aristeo Mercado Assessments Encounter Date Diagnosis (ICD Code) Assessment Notes Treatment Notes Treatment Clinical Notes Section Notes 07/14/2024 Fatty liver (ICD-10 - K76.0) Overall, Diego appears well. He presently does not describe any symptoms nor show any signs of progressive liver disease. However, we did review that his fatty liver with associated elevated LFTs will certainly worsen with the continued use of alcohol. As such I have advised him to eliminate alcohol completely from his lifestyle. I also advised him that avoiding alcohol would be best for his overall health including his diabetes. I am going to order a few laboratories as described below given that he had his recent ultrasound and other laboratories in the past month or so. Given his last colonoscopy being 10 years ago, his age, and overall good clinical appearance, I did recommend a follow-up colonoscopy for screening purposes. We did review the rationale for this in regard to colon cancer prevention. Full consent has been taken for this, including risks of bleeding and perforation. The procedure will be done with monitored anesthesia care. He was given the below instructions regarding adjustment of his medications for the procedure. Diego was comfortable with this plan. Thank you again for allowing me to participate in Diego's care. I shall continue to keep you advised of his progress.. 07/14/2024 Alcohol liver damage (ICD-10 - K70.9) Overall, Diego appears well. He presently does not describe any symptoms nor show any signs of progressive liver disease. However, we did review that his fatty liver with associated elevated LFTs will certainly worsen with the continued use of alcohol. As such I have advised him to eliminate alcohol completely from his lifestyle. I also advised him that avoiding alcohol would be best for his overall health including his diabetes. I am going to order a few laboratories as described below given that he had his recent ultrasound and other laboratories in the past month or so. Given his last colonoscopy being 10 years ago, his age, and overall good clinical appearance, I did recommend a follow-up colonoscopy for screening purposes. We did review the rationale for this in regard to colon cancer prevention. Full consent has been taken for this, including risks of bleeding and perforation. The procedure will be done with monitored anesthesia care. He was given the below instructions regarding adjustment of his medications for the procedure. Diego was comfortable with this plan. Thank you again for allowing me to participate in Diego's care. I shall continue to keep you advised of his progress.. 07/14/2024 Elevated liver function tests (ICD-10 - R79.89) Eliminate alcohol completely Overall, Diego appears well. He presently does not describe any symptoms nor show any signs of progressive liver disease. However, we did review that his fatty liver with associated elevated LFTs will certainly worsen with the continued use of alcohol. As such I have advised him to eliminate alcohol completely from his lifestyle. I also advised him that avoiding alcohol would be best for his overall health including his diabetes. I am going to order a few laboratories as described below given that he had his recent ultrasound and other laboratories in the past month or so. Given his last colonoscopy being 10 years ago, his age, and overall good clinical appearance, I did recommend a follow-up colonoscopy for screening purposes. We did review the rationale for this in regard to colon cancer prevention. Full consent has been taken for this, including risks of bleeding and perforation. The procedure will be done with monitored anesthesia care. He was given the below instructions regarding adjustment of his medications for the procedure. Diego was comfortable with this plan. Thank you again for allowing me to participate in Diego's care. I shall continue to keep you advised of his progress.. 07/14/2024 Colon cancer screening (ICD-10 - Z12.11) Overall, Diego appears well. He presently does not describe any symptoms nor show any signs of progressive liver disease. However, we did review that his fatty liver with associated elevated LFTs will certainly worsen with the continued use of alcohol. As such I have advised him to eliminate alcohol completely from his lifestyle. I also advised him that avoiding alcohol would be best for his overall health including his diabetes. I am going to order a few laboratories as described below given that he had his recent ultrasound and other laboratories in the past month or so. Given his last colonoscopy being 10 years ago, his age, and overall good clinical appearance, I did recommend a follow-up colonoscopy for screening purposes. We did review the rationale for this in regard to colon cancer prevention. Full consent has been taken for this, including risks of bleeding and perforation. The procedure will be done with monitored anesthesia care. He was given the below instructions regarding adjustment of his medications for the procedure. Diego was comfortable with this plan. Thank you again for allowing me to participate in Diego's care. I shall continue to keep you advised of his progress.. Plan Of Treatment Pending Test Test Name Order Date COLONOSCOPY 07/14/2024 LIVER PROFILE 07/08/2023 LIVER PROFILE 12/18/2022 LIVER PROFILE 07/14/2024 IRON + IBC (FE) 12/18/2022 CBC w DIFF 12/18/2022 ALPHA-FETOPROTEIN,TUMOR MARKER FLUOR. ANTINUCLEAR AB SCREEN (CHASTITY) 06/2022 Prothrombin Time INR 07/14/2024 Liver Fibrosis Pnl 07/14/2024 Future Test Test Name Order Date COLONOSCOPY 07/19/2014 Next Appt Details Provider Name:Aristeo Mercado , 02/04/2025 12:00:00 PM, [address] [place] [address] , [place], [place], [phone], Insurance Providers Payer Name Payer Address Payer Phone Subscriber Number Group Number Insured Name Patient Relationship to Insured Coverage Start Date Coverage End Date [facility] [address] [place], [place] [id number] [phone] [id number] DIEGO SERRANO Self - patient is the insured Medical (General) History Medical History History ICD Code Denies MS,CVA,Lung disease,renal disease NIDDM Elevated LFT's due to fatty liver and EtOH. His liver workup was otherwise negative in 12/2022 Negative screening colonoscopy in 10/2014 Lymphocytosis--being followed by Dr. Junito lacy as of the 06/2024 OV Surgical History Surgery Date(Month/Year) Stress fracture toe Discectomy--lower back--x 2
== END 2024-11-10 15:19 | disposition home or self-care (01) ==
LOC: HO.LAB 15:18
PROVIDERS: PCP Internal Medicine; Visit Provider Internal Medicine
DX: Z13.89 Encounter for screening for other disorder (principal)

== ENCOUNTER 2024-12-28 11:31 | Emergency (ER) | payer BC, SELFPAY ==
--- OUTSIDE RECORDS SUMMARY | 2024-06-30 17:33 | XMS_ITS ---
Author Organization Carmelo Phelps MD Address [address] [place] [phone] Care Team Providers Care Management Professor Name Role Phone Carmelo Phelps Primary Care Provider REASON FOR VISIT Message for Kathy. [facility] Liver Pnl + Updates on other Dr. Espinosas etc. Encounters Encounter Location Date Provider Diagnosis Carmelo Phelps MD [address] [place] [address] [address] [place] [phone] 06/30/2024 Carmelo Phelps Plan Of Treatment Next Appt Details Provider Name:Carmelo carty, 12/30/2024 10:30:00 AM, [address] [place] [address], [address], [phone], Provider Name:Carmelo carty, 01/28/2025 01:45:00 PM, [address] [place] [address], [address], [phone], Provider Name:Carmelo Dominguez ier, 04/26/2025 07:00:00 AM, [address], [address], [place], [place], [phone], Provider Name:Carmelo Dominguez ier, 05/03/2025 09:30:00 AM, [address], [address], [place], [place], [phone], Progress Notes * Salo SERRANO SDOB:1965 (59 yo M)Acc No.[id number]:06/30/2024 Patient: Trung RENÉSalo CARABALLO :1965 A ge:59 Y S ex:Male Address:[address] [place] [phone] * true * Date: Generated for Cindy palacios/Breanne/Palmirasmitting on: 06:36 PM EDT
--- OUTSIDE RECORDS SUMMARY | 2024-06-30 18:09 | XMS_ITS ---
Author Organization Carmelo Phelps MD Address [address] [facility] [address] [place] [phone] Care Team Providers Care Fund Accounting Manager Name Role Phone Carmelo Phelps Primary Care Provider REASON FOR VISIT PS-Message for Faina for Dr. Phelps Encounters Encounter Location Date Provider Diagnosis Carmelo Phelps MD [address] [place] [address] [address] [place] [phone] 06/30/2024 Carmelo Phelps Plan Of Treatment Next Appt Details Provider Name:Carmelo carty, 12/30/2024 10:30:00 AM, [address] [place] [address], [address], [phone], Provider Name:Carmelo carty, 01/28/2025 01:45:00 PM, [address] [place] [address], [address], [phone], Provider Name:Carmelo Dominguez ier, 04/26/2025 07:00:00 AM, [address], [address], [place], [place], [phone], Provider Name:Carmelo Dominguez ier, 05/03/2025 09:30:00 AM, [address], [address], [place], [phone], Progress Notes * Salo SERRANO SDOB:1965 (59 yo M)Acc No.[id number]:06/30/2024 Patient: Trung SUZIE Salo Lynch :1965 A ge:59 Y S ex:Male Address:[address] [place] [phone] * true * Date: Generated for Cindy palacios/Breanne/Palmirasmitting on: 06:37 PM EDT
--- OUTSIDE RECORDS SUMMARY | 2024-07-07 08:30 | XMS_ITS ---
Author Organization Carmelo Phelps MD Address [address] [place] [phone] Care Team Providers Care Pie Filler Name Role Phone Carmelo Phelps Primary Care Provider [phone] REASON FOR VISIT Message for Faina. Luz Jul 08 is not good for me. Encounters Encounter Location Date Provider Diagnosis Carmelo Phelps MD [address] [place] [address] [place] [phone] 07/07/2024 Carmelo Phelps Plan Of Treatment Next Appt Details Provider Name:Carmelo carty, 12/30/2024 10:30:00 AM, [address] [place] [address], [address], [phone], Provider Name:Carmelo carty, 01/28/2025 01:45:00 PM, [address] [place] [address], [address], [phone], Provider Name:Carmelo Dominguez ier, 04/26/2025 07:00:00 AM, [address], [address], [place], [place], [phone], Provider Name:Carmelo Dominguez ier, 05/03/2025 09:30:00 AM, [address], [address], [place], [place], [phone], Progress Notes * Salo SERRANO SDOB:1965 (59 yo M)Acc No.[id number]:07/07/2024 Patient: Trung RENÉSalo CARABALLO :1965 A ge:59 Y S ex:Male Address:[address] [place] [phone] * true * Date: Generated for Cindy palacios/Breanne/Palmirasmitting on: 06:37 PM EDT
--- OUTSIDE RECORDS SUMMARY | 2024-07-12 04:15 | XMS_ITS ---
Author Organization Carmelo Phelps MD Address [address] [place] [phone] Care Team Providers Care Dietetic Assistant Name Role Phone Carmelo Phelps Primary Care Provider Results Component Value Reference Range Notes Complete Blood Count Auto Di ff Reviewed date:07/12/2024 12:48:01 PM Interpretation: Performing Lab:[facility], [address] [place] [phone] Notes/Report: White Blood Count 11.0 4.8-10.8 X10*3/uL [...] Panel Reviewed date:07/12/2024 12:40:09 PM Interpretation: Performing Lab:[facility], [address] [place] [phone] Notes/Report: Bilirubin Total 0.5 0.0-1.0 mg/dL Bilirubin Direct 0.2 0.0-0.5 mg/dL Aspartate Amino Transferase 65 5-37 U/L Alanine Aminotransferase 81 0-40 U/L Total Protein 7.1 6.5-8.0 g/dL Albumin Level 4.3 3.5-5.0 g/dL Alkaline Phosphatase 63 39-117 U/L REASON FOR VISIT Liver Profile Encounters Encounter Location Date Provider Diagnosis Carmelo Phelps MD [address] [place], [place] [phone] 07/12/2024 Carmelo Phelps Elevated liver enzymes R74.8 and Lymphocytosis D72.820 Assessments Encounter Date Diagnosis (ICD Code) Assessment Notes Treatment Notes Treatment Clinical Notes Section Notes 07/12/2024 Elevated liver enzymes (ICD-10 - R74.8) 07/12/2024 Lymphocytosis (ICD-10 - D72.820) Plan Of Treatment Next Appt Details Provider Name:Carmelo Dominguez ier, 12/30/2024 10:30:00 AM, [address] [facility], [address] [facility], [place], [place], [phone], Provider Name:Carmelo Dominguez ier, 01/28/2025 01:45:00 PM, [address] [facility], [address] [facility], [place], [place], [phone], Provider Name:Carmelo Dominguez ier, 04/26/2025 07:00:00 AM, [address] [facility], [address] [facility], [place], [place], [phone], Provider Name:Carmelo Dominguez ier, 05/03/2025 09:30:00 AM, [address] [place] [address], [place] [address], [place], [place], [phone], Progress Notes * SERRANOSalo Balderrama SDOB:1965 (59 yo M)Acc No.[id number]:07/12/2024 Progress Note Patient: Salo TURPIN Provider: Jose Phelps MD :1965 A ge:59 Y S ex:Male Date:07/12/2024 Address:[address] [place], [place] [phone] Subjective: * Chief Complaints: * 1 . [...] MD Date: 0 07/12/2024 Generated for Cindy palacios/Breanne/eTransmitting on: 1 06:37 PM EDT
--- OUTSIDE RECORDS SUMMARY | 2024-10-25 04:30 | XMS_ITS ---
Author Organization [facility] Address [address] [place] [phone] Care Team Providers Care Director Funds Development Name Role Phone Mattie DELGADO, Carmelo Primary Care Provider Aristeo Fleming [phone] REASON FOR VISIT screening colon Encounters Encounter Location Date Provider Diagnosis [facility] [address] [place] [id number] 10/25/2024 Aristeo Mercado Plan Of Treatment Next Appt Details Provider Name:Aristeo Mercado , 02/04/2025 12:00:00 PM, [address] [place] [address], [phone], Progress Notes * DIEGO SERRANODOB:1965 ( 59 yo M)Acc No.[id number]:10/25/2024 COLON WITH MAC Patient: DIEGO TURPIN Provider: Ortega Mercado MD :1965 A ge:59 Y S ex:Male Date:10/25/2024 Address:[address] [place], [place] [id number] Pcp:Carmelo Phelps MD Subjective: * Chief Complaints: * 1 . Screening colon. * Medical History: Objective: * Vitals: Assessment: Plan: * Treatment: * * The named appointment provid er may or may not be the originator of this progress note, and it is not deemed complete until electronically signed by the appointment provider. Sign off status: Pending * Provider: Ortega Mercado MD Date: 0 10/25/2024 Generated for Cindy palacios/Breanne/Foster on: 1 06:36 PM EDT
--- OUTSIDE RECORDS SUMMARY | 2024-11-25 10:00 | XMS_ITS ---
Author Organization Carmelo Phelps MD Address [address] [place] [phone] Care Team Providers Care Booth Operator Name Role Phone Carmelo Phelps Primary Care Provider Allergies No Known Allergies REASON FOR VISIT must see labs, Video [phone], Tested negative for Covid this AM Medications Medication SIG (Take, Route, Frequency, Duration) Notes Start Date End Date Status Januvia 50 MG TAKE 1 TABLET BY TOMMY TH DAILY DIRECTED for 30 Active metFORMIN HCl ER 750 MG TAKE 1 TABLET BY MOUTH EVERY DAY WITH THE EVENING MEAL Active Ketoconazole 2 % 1 application Rolled [employer] Operator ally Twice a day for 30 days 02/01/2022 Not-Taki ng Tadalafil 20 MG 1/2 tablet Orally On ce a day as needed for 30 days 12/03/2021 Active metFORMIN HCl 500 MG 1 tablet with a ila l Orally twice a day for 90 days 08/21/2021 Not-Taking Problems Problem Type SNOMED Code ICD Code Onset Dates Problem Status W/U Status Risk Notes Problem Chronic lymphoid leukemia, disease (09837329) CLL (chronic lymphocytic leukemia) (C91.10) Active confirmed Vital Signs Height 73 in 11/25/2024 Weight 190 lbs 11/25/2024 BMI 25.06 kg/m2 11/25/2024 weight at home is 190 BP not taken no temp Encounters Encounter Location Date Provider Diagnosis Carmelo Phelps MD [address] [place] [phone] 11/25/2024 Carmelo Phelps CLL (chronic lymphocytic leukemia) C91.10 and Elevated LFTs R79.89 Assessments Encounter Date Diagnosis (ICD Code) Assessment Notes Treatment Notes Treatment Clinical Notes Section Notes 11/25/2024 CLL (chronic lymphocytic leukemia) (ICD-10 - C91.10) need notes from dr moore/ request for records will be sent . his wbc was high today. turns out that dr moore has diagnosed him with cll. don't have any of that information so will look into obtaining that important bit of information 11/25/2024 Elevated LFTs (ICD-10 - R79.89) they have remained roughlty the same. followed by dr booker Plan Of Treatment Treatment Notes Assessment Notes CLL (chronic lymphocytic leukemia) need notes from dr moore/ request for records will be sent . his wbc was high today. turns out that dr moore has diagnosed him with cll. don't have any of that information so will look into obtaining that important bit of information Elevated LFTs they have remained r oughlty the same. followed by dr booker Next Appt Details Follow Up: 2 Months, Reason: Provider Name:Carmelo carty, 12/30/2024 10:30:00 AM, [address] [place] [address], [address], [phone], Provider Name:Carmelo carty, 01/28/2025 01:45:00 PM, [address] [place] [address], [phone], Provider Name:Carmelo carty, 04/26/2025 07:00:00 AM, [address] [place] [address], [phone], Provider Name:Carmelo Dominguez ier, 05/03/2025 09:30:00 AM, [address], [address], [place], [place], [phone], Progress Notes * Salo SERRANO SDOB:1965 (59 yo M)Acc No.[id number]:11/25/2024 Patient: Salo TURPIN Provider: Jose Phelps MD :1965 A ge:59 Y S ex:Male Date:11/25/2024 Address:[address] [place], [place] [phone] Subjective: * Chief Complaints: * M ust see labsVideo [phone] negative for Covid this AM * HPI: S ymptom(s): Telehealth L ocation of provider rendering services: [address], [address], L ocation of patient: a t address listed in demographics for today's visit, P atient identification confirmed using: SLADE Montaño ame, T elehealth method: V ideo conference where patient is visible to the provider of care, C onsent: P atient verbally consented to treatment, Patient verbally consented to billing insurance company, Patient informed of any privacy concerns related to method of visit, T otal time spend talking with patient (minutes) 2 0. patient is a 59 yo male video telehealth visit, here for discussion of recent labs/ has? cold. * ROS: G eneral/Constitutional: Denies C hills. A dmits F atigue. D enies F ever. D enies H eadache. E NT: Denies S ore throat. R espiratory: Admits C ough. D enies S hortness of breath at rest. D enies S hortness of breath with exertion. D enies S putum production. G astrointestinal: Denies D iarrhea. D enies N ausea. * Medical History: * Surgical History: * Hospitalization/Major Diagno stic Procedure: * Medications: T akingmetFORMIN HCl ER 750 MG Tablet Extended Release 24 Hour TAKE 1 TABLET BY MOUTH EVERY DAY WITH THE EVENING MEAL Januvia 50 MG Tablet TAKE 1 TABLET BY MOUTH DAILY DIRECTED Tadalafil 20 MG Tablet 1/2 tablet Orally Once a day as needed Taking metFORMIN HCl ER 750 MG Tablet Extended Release 24 Hour TAKE 1 TABLET BY MOUTH EVERY DAY WITH THE EVENING MEAL Taking Januvia 50 MG Tablet TAKE 1 TABLET BY MOUTH DAILY DIRECTED Taking Tadalafil 20 MG Tablet 1/2 tablet Orally Once a day as needed Not-Taking/PRNKetoconazole 2 % Cream 1 application Externally Twice a day metFORMIN HCl 500 MG Tablet 1 tablet with a meal Orally twice a day Medication List reviewed and reconciled with the patientNot-Taking/PRN Ketoconazole 2 % Cream 1 application Externally Twice a day Not-Taking/PRN metFORMIN HCl 500 MG Tablet 1 tablet with a meal Orally twice a day Medication List reviewed and reconciled with the patient * Allergies: N .K.D.A.yes[Allergies Verified] Objective: * Vitals: H t: 73, Wt: 190, BMI:25.06, Wt-k.18. weight at home is 190 BP not taken no temp. * Examination: G eneral Examination: GENERAL APPEARANCE: a lert, well hydrated, in no distress.? Assessment: * Assessment: 1. C LL (chronic lymphocytic leukemia) - C91.10 (Primary) 2 . E levated LFTs - R79.89 Plan: * Treatment: 2. E levated LFTs Notes: they have remained roughlty the same. followed by dr booker * Procedure Codes: * Follow Up: 2 Months * * Sign off status: Completed true * Provider: Jose Phelps MD Date: 0 11/25/2024 Generated for Cindy palacios/Breanne/Richelleitting on: 1 06:37 PM EDT History and Physical Notes * HPI (History of Present Illness) Category Sub-Category Detail Notes Category Not es Symptom(s) [facility] [address], [address] patient is a 59 yo male video telehealth visit, here for discussion of recent labs/ has cold. Location of patient:: at address listed in demographics for today's visit Patient identification confirmed using:: Name, Telehealth method:: Video co nference where patient is visible to the provider of care Consent:: Patient verbally c onsented to treatment, Patient verbally consented to billing insurance company, Patient informed of any privacy concerns related to method of visit Total time spend talking with patient (m inutes): 20 Examination Category Sub-Category Detail Notes Category Not es General Examination GENERAL APPEARANCE: alert, w ell hydrated, in no distress
--- NOTE | ~2024-12-28 | XR_ITS ---
EXAMINATION: XR FOOT, RIGHT CLINICAL INFORMATION: lateral tenderness COMPARISON: None available. TECHNIQUE: AP, lateral, and oblique views of the right foot. FINDINGS: The bones and soft tissues are normal. No fracture. Alignment is anatomic. Joint spaces are maintained. XR/XR foot RT min 3V IMPRESSION: Unremarkable right foot. Electronically signed by: Jose Sanchez MD 12/28/2024 12:14 PM EDT
[2024-12-28 11:34] VITALS: BP 155/58; PULSE 71; RESP 18; TEMP 36.6; O2SAT 98; BMI 25.5
--- NOTE | 2024-12-28 11:34 | ED_ITS ---
HPI - General Adult General Chief complaint: Wound/Laceration Stated complaint: R foot wound, diabetic Related Data Home Medications ?Medication ?Instructions ?Recorded ?Confirmed metformin 750 mg tablet,extended 750 mg PO QPM 5 06/04/24 release 24 hr sitagliptin phosphate 50 mg tablet 50 mg PO DAILY 05/1606/04/24 (Januvia) Allergies Allergy/AdvReac Type Severity Reaction Status Date / Time seasonal Allergy Unknown Unknown Uncoded 12/28/24 11:35 [facility] Past Medical History Medical History (Updated 01/01/25 @ 20:27 by Ainsley Mcgarry NP) Diabetes type 2, controlled Surgical History H/O hammer toe correction Family History Family History Father HTN (hypertension) Mother Lymphoma Maternal Grandfather Stroke Social History Social History Household Members: Significant Other Advance Directives: No Advance Directives Information Provided: No Do you have a plan to hurt others: No Plan service: No Current occupational status: retired Gender identity: Male Physical Exam ED Vital Signs: BMI result Body Mass Index 25.5 Course Course Course Narrative: This is a rapid medical exam performed by Dimas Mcgarry NP: Additional HPI, ROS, PE not included below will be deferred to primary provider. Patient is a 59y/o M with pmhx DM, CLL presenting with complaint of right lateral foot pain and erythema since last night. Pain with palpation, denies open areas. Plan: labs, xray Patient left the emergency department before myself or any of the other clinicians could review or explain physical exam findings, test results, need or lack there of for additional testing, treatment options, or a treatment plan. Medical Decision Making Lab Data 12/28/24 12:14 12/28/24 12:14 Labs: Lab Results 12/28/24 Range/Units 12:14 WBC 14.4 H (4.8-10.8) X10*3/uL RBC 4.50 L (4.60-5.80) X10*6/uL Hgb 14.3 (14.0-18.0) g/dl Hct 42.2 (42.0-52.0) % MCV 93.8 (80.0-98.0) fL MCH 31.8 (27.0-33.0) pg MCHC 33.9 (31.0-36.0) g/dl RDW 12.6 (11.0-16.0) % Plt Count 199 (160-400) X10*3/uL MPV 9.8 (9.4-12.4) fL Immature Gran % (Auto) 0.3 (0.0-0.4) % Neut % (Auto) 35.7 L (45-73) % Lymph % (Auto) 58.3 H (20-40) % [place] % (Auto) 3.6 (2-11) % Eos % (Auto) 1.6 (0-4) % Baso % (Auto) 0.5 (0-2) % Lymph # (Auto) 8.4 H (1.2-4.9) X10*3/uL [place] # (Auto) 0.5 (0.1-1.2) X10*3/uL Eos # (Auto) 0.2 (0.0-0.4) X10*3/uL Baso # (Auto) 0.1 (0.0-0.2) X10*3/uL Abs Immat Gran (auto) 0.05 H (0.00-0.03) X10*3/uL Absolute Neuts (auto) 5.1 (2.0-8.3) x10*3/uL Absolute Nucleated RBC 0.000 (0.0-0.012) X10*3/uL Nucleated RBC % (auto) 0.0 (0.0-0.2) /100WBC Smear Tech's Comments VERIFIED ESR 9 (0-15) MM/HR Sodium 140 (135-145) mmol/L Potassium 4.3 (3.3-5.1) mmol/L Chloride 106 (96-108) mmol/L Carbon Dioxide 27 (22-29) mmol/L Anion Gap 11 L (12-20) BUN 15 (9-16) mg/dL Creatinine 0.79 (0.5-1.4) mg/dL Estim Creat Clear Calc 115.6 Estimated GFR > 60 Random Glucose 210 H (60-115) mg/dL Uric Acid 6.0 (3.4-7.0) mg/dL Calcium 9.2 (8.4-10.2) mg/dL Total Bilirubin 0.8 (0.0-1.0) mg/dL AST 42 H (5-37) U/L ALT 82 H (0-40) U/L Alkaline Phosphatase 60 (39-117) U/L C-Reactive Protein 1.13 H (< or = 0.50) mg/dL Total Protein 7.3 (6.5-8.0) g/dL Albumin 4.6 (3.5-5.0) g/dL Discharge Plan Discharge Clinical Impression: Foot pain, right Patient Disposition: Left W/O Completing Treatment Prescriptions: No Action metformin 750 mg tablet extended release 24 hr 750 mg PO QPM Januvia 50 mg tablet 50 mg PO DAILY Discharge Date/Time: 12/28/24 18:30
[2024-12-28 12:26] LABS: Hematocrit 42.2 % (42.0-52.0); Hemoglobin 14.3 g/dl (14.0-18.0); Imm Gran Abs Auto 0.05 X10*3/uL (0.00-0.03); Imm Gran Pct Auto 0.3 % (0.0-0.4); MANUAL DIFF FLAG SCAN; Mean Corpuscular HGB Conc 33.9 g/dl (31.0-36.0); Mean Corpuscular Hemoglobin 31.8 pg (27.0-33.0); Mean Corpuscular Volume 93.8 fL (80.0-98.0); NRBC Abs Auto 0.000 X10*3/uL (0.0-0.012); NRBC Pct Auto 0.0 /100WBC (0.0-0.2); Platelet Count 199 X10*3/uL (160-400); Red Blood Count 4.50 X10*6/uL (4.60-5.80); SCAN SMEAR FLAG 1; White Blood Count 14.4 X10*3/uL (4.8-10.8)
[2024-12-28 12:31] LABS: Lymphocytes Absolute Auto 8.4 X10*3/uL (1.2-4.9)
[2024-12-28 12:44] LABS: Alanine Aminotransferase 82 U/L (0-40); Albumin Level 4.6 g/dL (3.5-5.0); Alkaline Phosphatase 60 U/L (39-117); Anion Gap 11 (12-20); Aspartate Amino Transferase 42 U/L (5-37); Blood Urea Nitrogen 15 mg/dL (9-16); Calcium 9.2 mg/dL (8.4-10.2); Carbon Dioxide 27 mmol/L (22-29); Chloride 106 mmol/L (96-108); Creatinine Clr Calc Pharmacy 115.6; Estimated Glomerular Filt Rate > 60; Potassium 4.3 mmol/L (3.3-5.1); Sodium 140 mmol/L (135-145); Total Protein 7.3 g/dL (6.5-8.0); Uric Acid 6.0 mg/dL (3.4-7.0)
--- OUTSIDE RECORDS SUMMARY | 2024-12-28 18:37 | XMS_ITS | Patient Health Record ---
Author Organization Carmelo Phelps MD Address [address] [place] [phone] Care Team Providers Care Tail End Rider Name Role Phone Carmelo Phelps Primary Care Provider Allergies No Known Allergies Results Component Value Reference Range Notes Hemoglobin A1c Reviewed date:01/05/2024 03:15:08 PM Interpretation: Performing Lab: Notes/Report: Hemoglobin A1c 6.1 Complete Blood Count Auto Di ff Reviewed date:04/26/2024 12:33:59 PM Interpretation:04-26-24 Performing Lab:[facility], [address] [place] [phone] Notes/Report: White Blood Count 11.8 4.8-10.8 X10*3/uL [...] 0.000 0.0-0.012 X10*3/uL C ORRECTED REPORT Comprehensive [place]. Panel Fa st Reviewed date:04/19/2024 05:54:44 PM Interpretation: Performing Lab:[facility], [address] [place] [phone] Notes/Report: Sodium 140 135-145 mmol/L Potassium 4.1 [...] Panel Reviewed date:04/19/2024 01:03:02 PM Interpretation: Performing Lab:[address] [phone] Notes/Report: Triglycerides 98 <150 mg/dL Desirable Triglyceride: [...] (Free>4and<10) Reviewed date:04/19/2024 01:02:54 PM Interpretation: Performing Lab:[facility], [address] [place] [phone] Notes/Report: PSA,Total (Free>4and<10) 0.82 0.00-4.00 ng/mL A [...] Random Reviewed date:04/19/2024 01:02:46 PM Interpretation: Performing Lab:[address] [address] Notes/Report: Creatinine Urine 94.33 Microalbumin Urine < 5.0 Microalbum/Creatinine Ratio Ur TNP <30 ug/mg cr Unable to calculate albumin/creatinine ratio due to low microalbumin or creatinine result. Hemoglobin A1c Reviewed date:04/19/2024 01:03:10 PM Interpretation: Performing Lab:[address] [phone] Notes/Report: Hemoglobin A1c % 5.6 <6.0 % [...] average glucose, using the formula of the K6H-Wcskqso Average Glucose study (ADAG), Diabetes Care, Vol.31,#8, Oct. 2007 Complete Blood Count Auto Di ff Reviewed date:07/12/2024 12:48:01 PM Interpretation: Performing Lab:[address] [phone] Notes/Report: White Blood Count 11.0 4.8-10.8 X10*3/uL [...] Panel Reviewed date:07/12/2024 12:40:09 PM Interpretation: Performing Lab:[facility], [address] [place] [phone] Notes/Report: Bilirubin Total 0.5 0.0-1.0 mg/dL Bilirubin Direct 0.2 0.0-0.5 mg/dL Aspartate Amino Transferase 65 5-37 U/L Alanine Aminotransferase 81 0-40 U/L Total Protein 7.1 6.5-8.0 g/dL Albumin Level 4.3 3.5-5.0 g/dL Alkaline Phosphatase 63 39-117 U/L Glucose, finger stick Reviewed date:01/05/2024 03:10:28 PM Interpretation: Performing Lab: Notes/Report: Value 121 Complete Blood Count Auto Di ff Reviewed date:04/26/2024 03:08:02 PM Interpretation: Performing Lab:[facility], [address] [place] [phone] Notes/Report: White Blood Count 10.8 4.8-10.8 X10*3/uL [...] Panel Reviewed date:04/26/2024 01:31:41 PM Interpretation: Performing Lab:[address] [phone] Notes/Report: Bilirubin Total 0.4 0.0-1.0 mg/dL Bilirubin Direct 0.2 0.0-0.5 mg/dL Aspartate Amino Transferase 68 5-37 U/L Alanine Aminotransferase 76 0-40 U/L Total Protein 7.8 6.5-8.0 g/dL Albumin Level 4.6 3.5-5.0 g/dL Alkaline Phosphatase 56 39-117 U/L Pathologist Review - CBC Reviewed date:04/26/2024 12:34:16 PM Interpretation:04-26-24 Performing Lab:[facility], [address] [place] [phone] Notes/Report: Pathologist Review - CBC SEE NOTE - Mild lymphocytosis with occasional variant lymphoid cells and smudge cells: consider a lymphoproliferative disorder(e.g. CLL) vs a reactive process. Reviewed by Laura Lindsay MD SLIDE REVIEW Reviewed date:04/21/2024 08:07:18 PM Interpretation: Performing Lab:[facility], [address] [place] [phone] Notes/Report: SLIDE REVIEW VERIFIED UA CC w/rflx Micro + Cult Reviewed date:04/19/2024 01:34:57 PM Interpretation: Performing Lab:[facility], [address] [place] [phone] Notes/Report: [id number] Urine, Clean Catch Color Urine Yellow Appearance Urine Clear PH 5.5 5.0-9.0 Glucose Urine UA Negative Negative mg/dL Urine Blood Negative Negative Specific [place] - Urine 1.025 1.005-1.025 Urine Protein Negative Neg-Trace mg/dL Urine Ketones Negative Negative mg/dL Nitrite Urine Negative Negative Leukocyte Esterase Urine Negative Negative SLIDE REVIEW Reviewed date:04/26/2024 01:32:00 PM Interpretation: Performing Lab:[facility], [address] [place] [phone] Notes/Report: SLIDE REVIEW VERIFIED Complete Blood Count Man Dif Reviewed date:06/05/2024 06:20:36 PM Interpretation: Performing Lab:[facility], [address] [place] [phone] Notes/Report: White Blood Count 11.2 4.8-10.8 X10*3/uL [...] d Reviewed date:06/10/2024 12:59:09 PM Interpretation: Performing Lab:[address] [phone] Notes/Report: LEUKEMIA/LYMPHOMA [id number] blood LLE Interpretation See Note See repor t from [facility] in the EMR. Comprehensive Met. Panel Reviewed date:06/07/2024 12:53:51 PM Interpretation: Performing Lab:[facility], [address] [place] [phone] Notes/Report: Sodium 136 135-145 mmol/L Potassium 4.0 [...] Dehydrogenase Reviewed date:06/05/2024 06:19:58 PM Interpretation: Performing Lab:[address] [phone] Notes/Report: Lactate Dehydrogenase 202 118-273 U/L Beta-2 Microglobulin, Serum Reviewed date:06/07/2024 12:53:24 PM Interpretation: Performing Lab:[address] [address] Notes/Report: Beta-2 Microglobulin, Serum 1.80 < OR = 2.51 mg/L THIS TEST WAS PERFORMED AT: [facility] [address] [place] [phone] BJORN MCCORMICK MD Immunofixation Pnl, Serum Reviewed date:06/08/2024 08:00:23 PM Interpretation: Performing Lab:[facility], [address] [place] [phone] Notes/Report: IgG 832 786-9950 mg/dL IgA 347 47-310 mg/dL IgM 77 50-300 mg/dL THIS TEST WAS PERFORMED AT: [facility] [address] [place] [phone] BJORN MCCORMICK MD Immunofixation Interpretation SEE NOTE Normal pattern. No monoclonal proteins detected. Hepatitis B,C Profile Reviewed date:06/07/2024 12:53:34 PM Interpretation: Performing Lab:[address] [address] Notes/Report: Hepatitis B Surface Antibody NONREACTIVE Nonreactive Nonreactive: < 8.00 mIU/mL Hepatitis B Core Antibody Nonreactive Nonreactive Hepatitis C Antibody Nonreactive Nonreactive Antibodies to HCV not detected; does not exclude early acute HCV infection. Hepatitis B Surface Antigen Negative Negative US abdomen complete Reviewed date:07/09/2024 03:34:10 PM Interpretation: Performing Lab: Notes/Report: [facility] [place] [address] Ultrasound Report Signed Patient: Salo Baires MR#: [id number] 6 : 1965 Acct:[id number] Age/Sex: 59 / M ADM Date: 07/07/24 Loc: HO.HMGCX Attending Dr: Irvin Crockett MD Ordering Physician: Irvin Crockett MD Date of Service: 07/07/24 Procedure(s): US abdomen complete Accession Number(s): [id number] cc: Carmelo Phelps MD; Irvin Crockett MD CLINICAL HISTORY: ? Hepatosplenomegaly US abdomen complete. COMPARISON: US abdomen dated 05/13/22 at 16:18 EST Technique: Real time sonographic imaging, including color-flow imaging, was performed by the strategic alliances manager. Multiple personal financial representative static images were saved for review. [...] 07/09/24 1350 DD/ 1350 TD/TT: 07/09/24 1350 Metal Door Assembler: [facility] [address] [place] [address] [place] [address] Ultrasound Report Signed Patient: Salo Baires MR#: [id number] 6 : 1965 Acct:[id number] Age/Sex: 59 / M ADM Date: 07/07/24 Loc: HO.HMGCX Attending Dr: Irvin Crockett MD Ordering Physician: Irvin Crockett MD Date of Service: 07/07/24 Procedure(s): US abdomen complete Accession Number(s): [id number] cc: Carmelo Phelps MD; Irvin Crockett MD CLINICAL HISTORY: ? Hepatosplenomegaly US abdomen complete. COMPARISON: US abdom en dated 05/13/22 at 16:18 EST Technique: Real time sonographic imaging, including color-flow imaging, was performed by the strategic alliances manager. Multiple personal financial representative static images were saved for review. [...] 07/09/24 1350 DD/ 1350 TD/TT: 07/09/24 1350 Metal Door Assembler: SLIDE REVIEW Reviewed date:07/12/2024 12:39:59 PM Interpretation: Performing Lab:[address] [address] Notes/Report: SLIDE REVIEW VERIFIED Lactate Dehydrogenase Reviewed date:07/16/2024 04:59:11 PM Interpretation: Performing Lab:[facility], [address] [place] [phone] Notes/Report: Lactate Dehydrogenase 204 118-273 U/L [place]/Lambda Lt Ch,Free w ra t Reviewed date:07/19/2024 12:05:02 PM Interpretation: Performing Lab:[address] [address] Notes/Report: [place] Light Chain, Free Serum 16.5 3.3-19.4 mg/L Lambda Light Chain, Free Serum 10.3 5.7-26.3 mg/L [place]/Lambda Lt Ch Free Ratio 1.60 0.26-1.65 Free [...] these disorders. THIS TEST WAS PERFORMED AT: [facility] [address] [place] [phone] BJORN MCCORMICK MD [employer] Other Ref Reviewed date:07/28/2024 06:59:10 PM Interpretation: Performing Lab:[address] [address] Notes/Report: NeoType CLL profile+IgVH; CLL FISH panel [employer] Other Ref See Note See re port from [facility] in the EMR. Complete Blood Count Auto Di ff Reviewed date:11/25/2024 03:09:43 PM Interpretation:11-25-2024 Performing Lab:[facility], [address] [place] [phone] Notes/Report: White Blood Count 15.5 4.8-10.8 X10*3/uL [...] REPORT C ORRECTED REPORT Comprehensive Met. Panel Reviewed date:11/25/2024 03:10:13 PM Interpretation:11-25-2024 Performing Lab:[facility], [address] [place] [phone] Notes/Report: Sodium 137 135-145 mmol/L Potassium 4.4 [...] Alkaline Phosphatase 48 39-117 U/L SLIDE REVIEW Reviewed date:11/10/2024 07:54:02 PM Interpretation: Performing Lab:[facility], [address] [place] [phone] Notes/Report: SLIDE REVIEW VERIFIED Complete Blood Count Auto Di ff Reviewed date:12/28/2024 05:05:04 PM Interpretation: Performing Lab:[facility], [address] [place] [phone] Notes/Report: White Blood Count 14.4 4.8-10.8 X10*3/uL Red Blood Count 4.50 4.60-5.80 X10*6/uL Hemoglobin 14.3 14.0-18.0 g/dl Hematocrit 42.2 42.0-52.0 % Mean Corpuscular Volume 93.8 80.0-98.0 fL Mean Corpuscular Hemoglobin 31.8 27.0-33.0 pg Mean Corpuscular HGB Conc 33.9 31.0-36.0 g/dl Red Cell Distribution Width 12.6 11.0-16.0 % Platelet Count 199 160-400 X10*3/uL Mean Platelet Volume 9.8 9.4-12.4 fL Neutrophils Percent Auto 35.7 45-73 % Imm Gran Pct Auto 0.3 0.0-0.4 % Lymphocytes Percent Auto 58.3 20-40 % Monocytes Percent Auto 3.6 2-11 % Eosinophils Percent Auto 1.6 0-4 % Basophils Percent Auto 0.5 0-2 % NRBC Pct Auto 0.0 0.0-0.2 /100WBC Neutrophils Absolute Auto 5.1 2.0-8.3 x10*3/uL Imm Gran Abs Auto 0.05 0.00-0.03 X10*3/uL Lymphocytes Absolute Auto 8.4 1.2-4.9 X10*3/uL Monocytes Absolute Auto 0.5 0.1-1.2 X10*3/uL Eosinophils Absolute Auto 0.2 0.0-0.4 X10*3/uL Basophils Absolute Auto 0.1 0.0-0.2 X10*3/uL NRBC Abs Auto 0.000 0.0-0.012 X10*3/uL White Blood Count 14.4 4.8-10.8 X10*3/uL Red Blood Count 4.50 4.60-5.80 X10*6/uL Hemoglobin 14.3 14.0-18.0 g/dl Hematocrit 42.2 42.0-52.0 % Mean Corpuscular Volume 93.8 80.0-98.0 fL Mean Corpuscular Hemoglobin 31.8 27.0-33.0 pg Mean Corpuscular HGB Conc 33.9 31.0-36.0 g/dl Red Cell Distribution Width 12.6 11.0-16.0 % Platelet Count 199 160-400 X10*3/uL Mean Platelet Volume 9.8 9.4-12.4 fL Neutrophils Percent Auto 35.7 45-73 % Imm Gran Pct Auto 0.3 0.0-0.4 % Lymphocytes Percent Auto 58.3 20-40 % Monocytes Percent Auto 3.6 2-11 % Eosinophils Percent Auto 1.6 0-4 % Basophils Percent Auto 0.5 0-2 % NRBC Pct Auto 0.0 0.0-0.2 /100WBC Neutrophils Absolute Auto 5.1 2.0-8.3 x10*3/uL Imm Gran Abs Auto 0.05 0.00-0.03 X10*3/uL Lymphocytes Absolute Auto 8.4 1.2-4.9 X10*3/uL Monocytes Absolute Auto 0.5 0.1-1.2 X10*3/uL Eosinophils Absolute Auto 0.2 0.0-0.4 X10*3/uL Basophils Absolute Auto 0.1 0.0-0.2 X10*3/uL NRBC Abs Auto 0.000 0.0-0.012 X10*3/uL C ORRECTED REPORT C ORRECTED REPORT Erythrocyte Sedimentation Ra te Reviewed date:12/28/2024 05:02:41 PM Interpretation: Performing Lab:[facility], [address] [place] [phone] Notes/Report: Erythrocyte Sedimentation Rate 9 0-15 MM/HR Patients with polycythemia and many hemoglobin abnormalities may have depressed sed rates whereas patients with anemia may have elevated sed rates. Comprehensive Met. Panel Reviewed date:12/28/2024 05:04:18 PM Interpretation: Performing Lab:[facility], [address] [place] [phone] Notes/Report: Sodium 140 135-145 mmol/L Potassium 4.3 3.3-5.1 mmol/L Chloride 106 96-108 mmol/L Carbon Dioxide 27 22-29 mmol/L Anion Gap 11 12-20 Blood Urea Nitrogen 15 9-16 mg/dL Creatinine 0.79 0.5-1.4 mg/dL Creatinine Clr Calc Pharmacy 115.6 eGFR (calculated from the MDRD study equation) and eCrCl (calculated from the Cockcroft-Gault equation) are based on different parameters and may not yield comparable results. If eCrCl result is absurd, please check patient's height/weight. Estimated Glomerular Filt Rate > 60 Chronic Kidney Disease: Estimated GFR < 60 mL/min/1.73m2 Severe Kidney Disease: Estimated GFR < 15 mL/min/1.73m2 Glucose Random 210 60-115 mg/dL Calcium 9.2 8.4-10.2 mg/dL Bilirubin Total 0.8 0.0-1.0 mg/dL Aspartate Amino Transferase 42 5-37 U/L Alanine Aminotransferase 82 0-40 U/L Total Protein 7.3 6.5-8.0 g/dL Albumin Level 4.6 3.5-5.0 g/dL Alkaline Phosphatase 60 39-117 U/L Uric Acid Reviewed date:12/28/2024 04:52:29 PM Interpretation: Performing Lab:[facility], [address] [place] [phone] Notes/Report: Uric Acid 6.0 3.4-7.0 mg/dL C Reactive Protein Reviewed date:12/28/2024 05:02:24 PM Interpretation: Performing Lab:[facility], [address] [place] [phone] Notes/Report: C Reactive Protein 1.13 < or = 0.50 mg/dL SLIDE REVIEW Reviewed date:12/28/2024 05:02:33 PM Interpretation: Performing Lab:[facility], [address] [place] [phone] Notes/Report: SLIDE REVIEW VERIFIED XR foot RT min 3V Reviewed date:12/28/2024 12:29:14 PM Interpretation: Performing Lab: Notes/Report: [address] [address] XRay Report Signed Patient: Salo Baires MR#: [id number] 6 : 1965 Acct:[id number] Age/Sex: 59 / M ADM Date: 12/28/24 Loc: .ED Attending Dr: Ordering Physician: Ainsley Mcgarry NP Date of Service: 12/28/24 Procedure(s): XR foot RT min 3V Accession Number(s): [id number] cc: Carmelo Phelps MD; Ainsley Mcgarry NP Reason for Exam: lateral tenderness EXAMINATION: XR FOOT, RIGHT CLINICAL INFORMATION: lateral tenderness COMPARISON: None available. TECHNIQUE: AP, lateral, and oblique views of the right foot. FINDINGS: The bones and soft tissues are normal. No fracture. Alignment is anatomic. Joint spaces are maintained. XR/XR foot RT min 3V IMPRESSION: Unremarkable right foot. Electronically signed by: Jose Sanchez MD 12/28/2024 12:14 PM EDT RP Dictated By: Jose Sanchez MD Signed By: <Electronically signed by Jose Sanchez MD in OV> 12/28/244 DD/ 120 TD/TT: 12/28/24 120 Metal Door Assembler: [place] [address] XRay Report Signed Patient: Salo Baires MR#: [id number] 6 : 1965 Acct:[id number] Age/Sex: 59 / M ADM Date: 12/28/24 Loc: .ED Attending Dr: Ordering Physician: Ainsley Mcgarry NP Date of Service: 12/28/24 Procedure(s): XR silvano t RT min 3V Accession Number(s): [id number] cc: Carmelo Phelps MD; Ainsley Mcgarry NP Reason for Exam: lateral tenderness EXAMINATION: XR FOOT, RIGHT CLINICAL INFORMATION: lateral tenderness COMPARISON: None available. TECHNIQUE: AP, lateral, and oblique views of the right foot. FINDINGS: The bones and soft tissues are normal. No fracture. Alignment is anatomic. Joint spac es are maintained. XR/XR foot RT min 3V IMPRESSION: Unremarkable right foot. Electronically evon d by: Jose Sanchez MD 12/28/2024 12:14 PM EDT RP Dictated By: Jose Sanchez MD Signed By: <Electronically signed by Jose Sanchez MD in OV> 12/28/24 1214 DD/ 1205 TD/TT: 12/28/24 120 Metal Door Assembler: Reason For Referral Reason lymphocytosis, go ov [...] MEAL Active Ketoconazole 2 % 1 application Claims Adjustor ally Twice a day for 30 days 02/01/2022 Not-Taki ng Tadalafil 20 MG 1/2 tablet Orally On ce a day as needed for 30 days 12/03/2021 Active metFORMIN HCl 500 MG 1 tablet with a ila l Orally twice a day for 90 days 08/21/2021 Not-Taking Immunizations Vaccine Route Administration Date Status Comme [...] Problem Status W/U Status Risk Notes Problem 64764061 Lymphocytosis (D72.820) Active confirmed Problem 390988195 Exercise induced bronchospasm (J45.990) Active confirmed Problem 173650661 Erectile dysfunction due to diseases classified elsewhere (N52.1) Active confirmed Problem 4052221 Arthritis (M19.90) Active confirmed Problem 218650120 Lumbar disc disease (M51.9) Active confirmed Problem 93871013 Spermatocele (N43.40) Active confirmed Problem Type II diabetes mellitus without complication (061752449) Type 2 diabetes mellitus without complication (E11.9) Active confirmed Problem 29934860 Acute idiopathic gout of right ankle (M10.071) Active confirmed Problem Chronic lymphoid leukemia, disease (48853706) CLL (chronic lymphocytic leukemia) (C91.10) Active confirmed Problem 31434603 Intervertebral lumbar disc disorder with myelopathy, 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) Active confirmed Problem 833983794 Pseudogout of le ft ankle (M11.272) Active confirmed Vital Signs Blood pressure diastolic 80 mm Hg 05/10/2024 Height 73 in 11/25/2024 weight at home is 190 BP not taken no temp Blood pressure systolic 122 mm Hg 05/10/2024 Weight 190 lbs 11/25/2024 weight at home is 190 BP not taken no temp BMI 25.06 kg/m2 11/25/2024 weight at home is 190 BP not taken no temp Encounters Encounter Location Date Provider Diagnosis Carmelo Phelps MD [address] [place] [id number] 04/19/2024 Carmelo Phelps Blood tests for routine general physical examination Z00.00 ; Lymphocytosis D72.820 and Type 2 diabetes mellitus without complication E11.9 Carmelo Phelps MD [address] [place] [id number] 07/12/2024 Carmelo Phelps Elevated liver enzymes R74.8 and Lymphocytosis D72.820 Carmelo Phelps MD [address] [place] [id number] 01/05/2024 Carmelo Phelps Type 2 diabetes mellitus without complication E11.9 Carmelo Phelps MD [address] [place] [id number] 04/26/2024 Carmelo Phelps Lymphocytosis D72.82 0 ; Annual physical exam Z00.00 ; Elevated LFTs R79.89 ; Type 2 diabetes mellitus without complication E11.9 ; Erectile dysfunction due to diseases classified elsewhere N52.1 ; Colon cancer screening Z12.11 and Depression screening Z13.31 Carmelo Phelps MD [address] [place] [id number] 05/10/2024 Carmelo Phelps Lymphocytosis D72.82 0 ; Type 2 diabetes mellitus without complication E11.9 and Elevated LFTs R79.89 Carmelo Phelps MD [address] [place] [id number] 11/25/2024 Carmelo Phelps CLL (chronic lymphocytic leukemia) C91.10 and Elevated LFTs R79.89 Carmelo Phelps MD [address] [place] [id number] 05/04/2024 Carmelo Phelps MD [address] [place] [address] [id number] 01/21/2024 Carmelo Phelps MD [address] [place] [id number] 01/21/2024 Carmelo Phelps MD [address] [place] [address] [id number] 01/24/2024 Carmelo Phelps MD [address] [place] [id number] 01/28/2024 Carmelo Phelps MD [address] [place] [address] [id number] 02/18/2024 Carmelo Phelps MD [address] [place] [address] [id number] 02/20/2024 Carmelo Phelps MD [address] [place] [id number] 04/08/2024 Carmelo Phelps MD [address] [place] [address] [id number] 04/11/2024 Carmelo Phelps MD [address] [place] [id number] 05/20/2024 Carmelo Phelps MD [address] [place] [address] [id number] 06/02/2024 Carmelo Phelps Erectile dysfunction due to diseases classified elsewhere N52.1 Carmelo Phelps MD [address] [place] [address] [id number] 06/02/2024 Carmelo Phelps MD [address] [place] [address] [id number] 06/02/2024 Carmelo Phelps MD [address] [place] [address] [id number] 06/04/2024 Carmelo Phelps MD [address] [place] [address] [id number] 06/30/2024 Carmelo Phelps MD [address] [place] [address] [id number] 06/30/2024 Carmelo Phelps MD [address] [place] [address] [id number] 07/07/2024 Carmelo Phelps Assessments Encounter Date Diagnosis [...] been doing well, will continue current regiment 11/25/2024 CLL (chronic lymphocytic leukemia) (ICD-10 - C91.10) need notes from dr crockett/ request for records will be sent . his wbc was high today. turns out that dr crockett has diagnosed him with cll. don't have any of that information so will look into obtaining that important bit of information 11/25/2024 Elevated LFTs (ICD-10 - R79.89) they have remained roughlty the same. followed by dr booker 06/02/2024 Erectile dysfunction due to diseases classified [...] PHY 05/16/2022 Next Appt Details Provider Name:Carmelo carty, 12/30/2024 10:30:00 AM, [address] [place] [address], [address] [place] [address], [phone], Provider Name:Carmelo carty, 01/28/2025 01:45:00 PM, [address] [place] [address], [address], [phone], Provider Name:Carmelo carty, 04/26/2025 07:00:00 AM, [address] [place] [address], [address], [phone], Provider Name:Carmelo carty, 05/03/2025 09:30:00 AM, [address], [address], [place], [place], [phone], Insurance Providers Payer Name Payer Address Payer Phone Subscriber Number Group Number Insured Name Patient Relationship to Insured Coverage Start Date Coverage End Date [employer] [address] [place], [place] [phone] [id number] Salo Baires Self - patient is the insured Medical (General) History Medical History History ICD Code Colonoscopy 11/10/14 - repeat 10 yrs w/Dr Mauro Booker Surgical History Surgery Date(Month/Year) lumbar laminectomy 2003
--- OUTSIDE RECORDS SUMMARY | 2024-12-28 18:37 | XMS_ITS | Patient Health Record ---
Author Organization [facility] Address [address] [place] [address] Care Team Providers Care Pie Filling Mixer Name Role Phone Carmelo Phelps MD Primary Care Provider Aristeo Fleming [phone] Allergies No Known Allergies Results Component Value Reference Range Notes Prothrombin Time INR Reviewed date:11/11/2024 09:02:46 AM Interpretation: Performing Lab:[facility], [address] [place] [phone] Notes/Report: Prothrombin Time 10.6 10.9-12.4 SEC INTERNATIONAL NORM RATIO 0.9 0.9-1.1 INTERNATIONAL [...] mechanical prosthetic heart valves: 2.5 - 3.5 Liver Panel (Not yet reviewe d by provider) Interpretation: Performing Lab:[facility], [address] [place] [phone] Notes/Report: Bilirubin Total 0.9 0.0-1.0 mg/dL Bilirubin Direct 0.3 0.0-0.5 mg/dL Aspartate Amino Transferase 76 5-37 U/L Alanine Aminotransferase 98 0-40 U/L Total Protein 7.4 6.5-8.0 g/dL Albumin Level 4.8 3.5-5.0 g/dL Alkaline Phosphatase 47 39-117 U/L Alpha Fetoprotein (Not yet r eviewed by provider) Interpretation: Performing Lab:[address] [phone] Notes/Report: Alpha Fetoprotein 3.1 <6.1 ng/mL This test was performed using the Gui Cody chemiluminescent method. Values obtained from different assay methods cannot be used interchangeably. AFP levels, regardless of value, should not be interpreted as absolute evidence of the presence or absence of disease. THIS TEST WAS PERFORMED AT: [facility] [address] [place] [phone] BJORN MCCORMICK MD Liver Fibrosis Pnl (Not yet reviewed by provider) Interpretation: Performing Lab:[address] [phone] Notes/Report: Liver Fibrosis Score 0.33 Liver Fibrosis Stage F1-F2 Liver Fibrosis Interpretation [...] F4 (severe fibrosis) Nec Inflam Act Score 0.42 Nec Inflam Act Grade A1-A2 Nec Inflam Act Interpretation SEE NOTE minimal activity ActiTest Score (a) Metavir Score a>=0 and a<=0.17 : A0 (no activity) a>0.17 and a<=0.29 : A0-A1 (no activity) a>0.29 and a<=0.36 : A1 (minimal activity) a>0.36 and a<=0.52 : A1-A2 (minimal activity) a>0.52 and a<=0.60 : A2 (significant activity) a>0.60 and a<=0.62 : A2-A3 (significant activity) a>0.62 and a<=1.00 : A3 (severe activity) CWZ-Xoasb-3-Macroglobulin 240 106-279 mg/dL FIB-Haptoglobin 157 43-212 mg/dL FIB-Apolipoprotein A1 172 94-176 mg/dL FIB-Total Bilirubin 0.7 0.2-1.2 mg/dL FIB-GGT 33 3-70 U/L FIB-ALT 69 9-46 U/L Reference ID [id number] Footnote SEE NOTE The reliability of results is dependent on compliance with the preanalytical and analytical conditions recommended by [employer]. The tests have to be deferred for: [...] The performance characteristics have been determined by [employer] [facility]. It has not been cleared or approved by the U.S. Food and Drug Administration. Performance characteristics refer to the analytical performance of the test. [employer], [employer] the associated logo, [employer] and all associated [employer] agrawal are the registered trademarks of [employer] All third democrat agrawal - (R) and (TM) - are the property of their respective owners. (C) 2971-6857 [employer] Incorporated. All rights reserved. THIS TEST WAS PERFORMED AT: [employer] [facility] [address] [place] [address] CATHY ISRAEL MD,PHD,ELIAS Reason For Referral No Information Medications Medication SIG (Take, Route, Frequency, Duration) Notes Start Date End Date Status Fish Oil 1000 MG 1 capsule Orally Onc e a day Active Vitamin B + C Complex - as directed Orally Active metFORMIN HCl ER 750 MG TAKE 1 TABLET BY MOUTH EVERY DAY WITH THE EVENING MEAL Oral; Duration: ,Unavailable Active Januvia 50 MG TAKE 1 TABLET BY MOUTH ONCE DAILY DIRECTED Oral; Duration: ,Unavailable Active Vitamin D 50 MCG (2000 UT) 1 tablet Orally Once a day; Duration: 30 day(s) Active Immunizations Vaccine Route Administration [...] Status Risk Notes Problem Colon cancer screening (653388517) Colon cancer screening (Z12.11) Active confirmed Problem Elevated liver enzymes level (518196570) Elevated liver function tests (R79.89) Active confirmed Problem Fatty liver (817586843) Fatty liver (K76.0) Active confirmed Problem Alcoholic liver damage (18393268) Alcohol liver damage (K70.9) Active confirmed Vital Signs Temperature 98.0 degrees Fahrenheit 07/14/2024 Blood pressure diastolic 01 mm Hg 07/14/2024 Height 74 in 07/14/2024 Blood pressure systolic 001 mm Hg 07/14/2024 Weight 186.8 lbs 07/14/2024 BMI 23.98 kg/m2 07/14/2024 Procedures Procedure Date Ordered Date Performed Result Body Sit e COLONOSCOPY 07/14/2024 N/A Encounters Encounter Location Date Provider Diagnosis [facility] [address] [place] [address] 07/14/2024 Aristeo Mercado Fatty liver K76.0 ; Alcohol liver damage K70.9 ; Elevated liver function tests R79.89 and Colon cancer screening Z12.11 [facility] [address] [place] [address] 10/15/2024 Aristeo Mercado Assessments Encounter Date Diagnosis [...] (CHASTITY) 06/2022 Prothrombin Time INR 07/14/2024 Liver Panel 11/10/2024 Alpha Fetoprotein 11/10/2024 Liver Fibrosis Pnl 11/10/2024 Liver Fibrosis Pnl 07/14/2024 Future Test Test Name Order Date COLONOSCOPY 07/19/2014 Next Appt Details Provider Name:Aristeo Mercado , 02/04/2025 12:00:00 PM, [address] [place] [address] , [place], [place], [phone], Insurance Providers Payer Name Payer Address Payer Phone Subscriber Number Group Number Insured Name Patient Relationship to Insured Coverage Start Date Coverage End Date [facility] [address] [place], [place] [id number] [phone] [id number] Self - patient is the insured Medical (General) History Medical History History ICD Code Denies [place],CVA,Lung disease,renal disease NIDDM Elevated LFT's due to fatty liver and EtOH. His liver workup was otherwise negative in 12/2022 Negative screening colonoscopy in 10/2014 Lymphocytosis--being followed by Dr. Junito lacy as of the 06/2024 OV Surgical History Surgery Date(Month/Year) Stress fracture toe Discectomy--lower back--x 2
== END 2024-12-28 18:30 | disposition left against medical advice (07) ==
PROVIDERS: Registered Nurse Emergency; Emergency Provider Emergency Medicine; PCP Internal Medicine
DX: M79.671 Pain in right foot (principal); Z53.21 Procedure and treatment not carried out due to patient leaving prior to being seen by health care provider
CPT/HCPCS: 36415; 73630; 80053; 84550; 85025; 85652; 86140; 99281

== ENCOUNTER → 2024-12-28 11:35 | Outpatient (BNV) | payer BC, SELFPAY | PROVIDERS: PCP Internal Medicine; Visit Provider Radiology Diagnostic Radiology | DX: M79.671 Pain in right foot (principal) | CPT/HCPCS: 73630 ==

== ENCOUNTER 2025-02-04 10:07 | Day surgery (SDC) | payer BC, SELFPAY ==
--- OUTSIDE RECORDS SUMMARY | 2024-09-09 09:08 | XMS_ITS | Patient Health Record ---
Author Organization Carmelo Phelps MD Address [address] [place] [phone] Care Team Providers Care Payment Poster Name Role Phone Carmelo Phelps Primary Care Provider [phone] Allergies No Known Allergies Results Component Value Reference Range Notes Hemoglobin A1c Reviewed date:10/02/2023 03:16:31 PM Interpretation: Performing Lab: Notes/Report: Hemoglobin A1c 5.9 Hemoglobin A1c Reviewed date:01/05/2024 03:15:08 PM Interpretation: Performing Lab: Notes/Report: Hemoglobin A1c 6.1 Liver Panel Reviewed date:09/12/2023 12:21:51 PM Interpretation: Performing Lab:[facility], [address] [place] [phone] Notes/Report: Bilirubin Total 0.9 0.0-1.0 mg/dL Bilirubin Direct 0.3 0.0-0.5 mg/dL Aspartate Amino Transferase 46 5-37 U/L Alanine Aminotransferase 40 0-40 U/L Total Protein 7.3 6.5-8.0 g/dL Albumin Level 4.5 3.5-5.0 g/dL Alkaline Phosphatase 51 39-117 U/L Complete Blood Count Auto Di ff Reviewed date:04/26/2024 12:33:59 PM Interpretation:04-26-24 Performing Lab:[facility], [address] [place] [phone] Notes/Report: White Blood Count 11.8 4.8-10.8 X10*3/uL [...] 0.0-0.2 /100WBC Neutrophils Absolute Auto 2.9 2.0-8.3 x10*3/uL Imm Gran Abs Auto 0.03 0.00-0.03 X10*3/uL Lymphocytes Absolute Auto 7.9 1.2-4.9 X10*3/uL Monocytes Absolute Auto 0.6 0.1-1.2 X10*3/uL Eosinophils Absolute Auto 0.3 0.0-0.4 X10*3/uL Basophils Absolute Auto 0.1 0.0-0.2 X10*3/uL NRBC Abs Auto 0.000 0.0-0.012 X10*3/uL C ORRECTED REPORT Comprehensive [place]. Panel Fa st Reviewed date:04/19/2024 05:54:44 PM Interpretation: Performing Lab:[facility], [address] [place] [phone] Notes/Report: Sodium 140 135-145 mmol/L Potassium 4.1 [...] Panel Reviewed date:04/19/2024 01:03:02 PM Interpretation: Performing Lab:[facility], [address] [place] [phone] Notes/Report: Triglycerides 98 <150 mg/dL Desirable Triglyceride: [...] (Free>4and<10) Reviewed date:04/19/2024 01:02:54 PM Interpretation: Performing Lab:[address] [address] Notes/Report: PSA,Total (Free>4and<10) 0.82 0.00-4.00 ng/mL A [...] Random Reviewed date:04/19/2024 01:02:46 PM Interpretation: Performing Lab:[facility], [address] [place] [phone] Notes/Report: Creatinine Urine 94.33 Microalbumin Urine < 5.0 Microalbum/Creatinine Ratio Ur TNP <30 ug/mg cr Unable to calculate albumin/creatinine ratio due to low microalbumin or creatinine result. Hemoglobin A1c Reviewed date:04/19/2024 01:03:10 PM Interpretation: Performing Lab:[address] [address] Notes/Report: Hemoglobin A1c % 5.6 <6.0 % [...] average glucose, using the formula of the O2O-Ehzirtd Average Glucose study (ADAG), Diabetes Care, Vol.31,#8, 2007 Complete Blood Count Auto Di ff Reviewed date:07/12/2024 12:48:01 PM Interpretation: Performing Lab:[facility], [address] [place] [phone] Notes/Report: White Blood Count 11.0 4.8-10.8 X10*3/uL [...] 0.0-0.2 /100WBC Neutrophils Absolute Auto 3.2 2.0-8.3 x10*3/uL Imm Gran Abs Auto 0.04 0.00-0.03 X10*3/uL Lymphocytes Absolute Auto 6.9 1.2-4.9 X10*3/uL Monocytes Absolute Auto 0.6 0.1-1.2 X10*3/uL Eosinophils Absolute Auto 0.3 0.0-0.4 X10*3/uL Basophils Absolute Auto 0.1 0.0-0.2 X10*3/uL NRBC [...] 0.0-0.2 /100WBC Neutrophils Absolute Auto 3.2 2.0-8.3 x10*3/uL Imm Gran Abs Auto 0.04 0.00-0.03 X10*3/uL Lymphocytes Absolute Auto 6.9 1.2-4.9 X10*3/uL Monocytes Absolute Auto 0.6 0.1-1.2 X10*3/uL Eosinophils Absolute Auto 0.3 0.0-0.4 X10*3/uL Basophils Absolute Auto 0.1 0.0-0.2 X10*3/uL NRBC Abs Auto 0.000 0.0-0.012 X10*3/uL C ORRECTED REPORT C ORRECTED REPORT Liver Panel Reviewed date:07/12/2024 12:40:09 PM Interpretation: Performing Lab:[facility], [address] [place] [phone] Notes/Report: Bilirubin Total 0.5 0.0-1.0 mg/dL Bilirubin Direct 0.2 0.0-0.5 mg/dL Aspartate Amino Transferase 65 5-37 U/L Alanine Aminotransferase 81 0-40 U/L Total Protein 7.1 6.5-8.0 g/dL Albumin Level 4.3 3.5-5.0 g/dL Alkaline Phosphatase 63 39-117 U/L Glucose, finger stick Reviewed date:10/02/2023 03:10:09 PM Interpretation: Performing Lab: Notes/Report: Value 141 Glucose, finger stick Reviewed date:01/05/2024 03:10:28 PM Interpretation: Performing Lab: Notes/Report: Value 121 Complete Blood Count Auto Di ff Reviewed date:04/26/2024 03:08:02 PM Interpretation: Performing Lab:[facility], [address] [place] [phone] Notes/Report: White Blood Count 10.8 4.8-10.8 X10*3/uL [...] 0.0-0.2 /100WBC Neutrophils Absolute Auto 3.1 2.0-8.3 x10*3/uL Imm Gran Abs Auto 0.02 0.00-0.03 X10*3/uL Lymphocytes Absolute Auto 6.6 1.2-4.9 X10*3/uL Monocytes Absolute Auto 0.6 0.1-1.2 X10*3/uL Eosinophils Absolute Auto 0.3 0.0-0.4 X10*3/uL Basophils Absolute Auto 0.1 0.0-0.2 X10*3/uL NRBC [...] 0.0-0.2 /100WBC Neutrophils Absolute Auto 3.1 2.0-8.3 x10*3/uL Imm Gran Abs Auto 0.02 0.00-0.03 X10*3/uL Lymphocytes Absolute Auto 6.6 1.2-4.9 X10*3/uL Monocytes Absolute Auto 0.6 0.1-1.2 X10*3/uL Eosinophils Absolute Auto 0.3 0.0-0.4 X10*3/uL Basophils Absolute Auto 0.1 0.0-0.2 X10*3/uL NRBC Abs Auto 0.000 0.0-0.012 X10*3/uL C ORRECTED REPORT C ORRECTED REPORT Liver Panel Reviewed date:04/26/2024 01:31:41 PM Interpretation: Performing Lab:[facility], [address] [place] [phone] Notes/Report: Bilirubin Total 0.4 0.0-1.0 mg/dL Bilirubin Direct 0.2 0.0-0.5 mg/dL Aspartate Amino Transferase 68 5-37 U/L Alanine Aminotransferase 76 0-40 U/L Total Protein 7.8 6.5-8.0 g/dL Albumin Level 4.6 3.5-5.0 g/dL Alkaline Phosphatase 56 39-117 U/L Pathologist Review - CBC Reviewed date:04/26/2024 12:34:16 PM Interpretation:04-26-24 Performing Lab:[address] [address] Notes/Report: Pathologist Review - CBC SEE NOTE - Mild lymphocytosis with occasional variant lymphoid cells and smudge cells: consider a lymphoproliferative disorder(e.g. CLL) vs a reactive process. Reviewed by Laura Lindsay MD SLIDE REVIEW Reviewed date:04/21/2024 08:07:18 PM Interpretation: Performing Lab:[facility], [address] [place] [phone] Notes/Report: SLIDE REVIEW VERIFIED UA CC w/rflx Micro + Cult Reviewed date:04/19/2024 01:34:57 PM Interpretation: Performing Lab:[address] [address] Notes/Report: [id number] Urine, Clean Catch Color Urine Yellow Appearance Urine Clear PH 5.5 5.0-9.0 Glucose Urine UA Negative Negative mg/dL Urine Blood Negative Negative Specific [place] - Urine 1.025 1.005-1.025 Urine Protein Negative Neg-Trace mg/dL Urine Ketones Negative Negative mg/dL Nitrite Urine Negative Negative Leukocyte Esterase Urine Negative Negative SLIDE REVIEW Reviewed date:04/26/2024 01:32:00 PM Interpretation: Performing Lab:[facility], [address] [place] [phone] Notes/Report: SLIDE REVIEW VERIFIED Complete Blood Count Man Dif Reviewed date:06/05/2024 06:20:36 PM Interpretation: Performing Lab:[facility], [address] [place] [phone] Notes/Report: White Blood Count 11.2 4.8-10.8 X10*3/uL [...] 1.2-4.9 X10*3/uL Monocytes Absolute Manual 0.9 0.1-1.2 X10*3/uL Platelet Estimate NORMAL NORMAL Platelet Morphology Comment NORMAL RBC Morphology NORMAL Leukemia/Lymphoma Eval. Marcos d Reviewed date:06/10/2024 12:59:09 PM Interpretation: Performing Lab:[address] [address] Notes/Report: LEUKEMIA/LYMPHOMA [id number] blood LLE Interpretation See Note See repor t from [employer] in the EMR. Comprehensive Met. Panel Reviewed date:06/07/2024 12:53:51 PM Interpretation: Performing Lab:[address] [address] Notes/Report: Sodium 136 135-145 mmol/L Potassium 4.0 [...] Dehydrogenase Reviewed date:06/05/2024 06:19:58 PM Interpretation: Performing Lab:[facility], [address] [place] [phone] Notes/Report: Lactate Dehydrogenase 202 118-273 U/L Beta-2 Microglobulin, Serum Reviewed date:06/07/2024 12:53:24 PM Interpretation: Performing Lab:[facility], [address] [place] [phone] Notes/Report: Beta-2 Microglobulin, Serum 1.80 < OR = 2.51 mg/L THIS TEST WAS PERFORMED AT: [facility] [address] [place] [phone] BJORN MCCORMICK MD Immunofixation Pnl, Serum Reviewed date:06/08/2024 08:00:23 PM Interpretation: Performing Lab:[facility], [address] [place] [phone] Notes/Report: IgG 202 715-0389 mg/dL IgA 347 47-310 mg/dL IgM 77 50-300 mg/dL THIS TEST WAS PERFORMED AT: [facility] [address] [place] [phone] BJORN MCCORMICK MD Immunofixation Interpretation SEE NOTE Normal pattern. No monoclonal proteins detected. Hepatitis B,C Profile Reviewed date:06/07/2024 12:53:34 PM Interpretation: Performing Lab:[facility], [address] [place] [phone] Notes/Report: Hepatitis B Surface Antibody NONREACTIVE Nonreactive Nonreactive: < 8.00 mIU/mL Hepatitis B Core Antibody Nonreactive Nonreactive Hepatitis C Antibody Nonreactive Nonreactive Antibodies to HCV not detected; does not exclude early acute HCV infection. Hepatitis B Surface Antigen Negative Negative US abdomen complete Reviewed date:07/09/2024 03:34:10 PM Interpretation: Performing Lab: Notes/Report: [facility] [address] [place] [address] [place] [address] Ultrasound Report Signed Patient: Salo Baires MR#: [id number] 6 : 1965 Acct:[id number] Age/Sex: 59 / M ADM Date: 07/07/24 [facility] Att[facility] Dr: Irvin Crockett MD Ordering Physician: Irvin Crockett MD Date of Service: 07/07/24 Procedure(s): US abdomen complete Accession Number(s): [id number] cc: Carmelo Phelps MD; Irvin Crockett MD CLINICAL HISTORY: ? Hepatosplenomegaly US abdomen complete. COMPARISON: US abdomen dated 05/13/22 at 16:18 EST Technique: Real time sonographic imaging, including color-flow imaging, was performed by the peanut salter. Multiple telephone sales representative static images were saved for review. FINDINGS: The visualized aorta and inferior vena cava are normal caliber. The visualized portions of the pancreas appear normal. The liver has diffusely increased echogenicity. Simple hepatic cyst measuring 1.1 x 0.5 x 0.8 cm present within the left lobe. Simple hepatic cyst measuring 1.5 x 1.3 x 1.4 cm present within the right lobe. Liver, right lobe size: 20.9 cm, enlarged The gallbladder is normal in size. No cholelithiasis or sludge identified. There is a negative sonographic Joseph's sign. Gallbladder wall: 2 mm, normal. Common bile duct: 4 mm, normal. Right kidney: Cortical medullary differentiation is maintained. Normal color flow by Doppler. No calculus or focal parenchymal abnormality identified. No hydronephrosis. Right kidney length: 11.3 cm Left kidney: Cortical medullary differentiation is maintained. Normal color flow by Doppler. No calculus or focal parenchymal abnormality identified. No hydronephrosis. Left kidney length: 11.1 cm The spleen has normal echogenicity. Splenic length: 10.1 cm, normal. No free intraperitoneal fluid identified. IMPRESSION: 1. No acute findings. No evidence of cholecystitis. 2. Hepatomegaly with hepatic steatosis. This document has been electronically signed by: Ronn Lal MD on 07/09/2024 13:50:24 Dictated By: Ronn Lal MD Signed By: <Electronically signed by Ronn Lal MD in OV> 07/09/24 1350 DD/ 135 TD/TT: 07/09/24 135 Garden Worker: [facility] [address] [place] [address] [place] [address] Ultrasound Report Signed Patient: Salo Baires MR#: [id number] 6 : 1965 Acct:[id number] Age/Sex: 59 / M ADM Date: 07/07/24 [facility] Dr: Irvin Crockett MD Ordering Physician: Irvin Crockett MD Date of Service: 07/07/24 Procedure(s): US abdomen complete Accession Number(s): [id number] cc: Carmelo Phelps MD; Irvin Crockett MD CLINICAL HISTORY: ? Hepatosplenomegaly US abdomen complete. COMPARISON: US abdom en dated 05/13/22 at 16:18 EST Technique: Real time sonographic imaging, including color-flow imaging, was performed by the peanut salter. Multiple telephone sales representative static images were saved for review. FINDINGS: The visualized aorta and inferior vena cava are normal caliber. The visualized porti ons of the pancreas appear normal. The liver has diffus ozzy increased echogenicity. Simple hepatic cyst measuring 1.1 x 0.5 x 0.8 cm present within the left lobe. Simple hepatic cyst measuring 1.5 x 1.3 x 1.4 cm present within the right lobe. Liver, right lobe si ze: 20.9 cm, enlarged The gallbladder is normal in size. No cholelithiasis or sludge identified. There is a negative sonographic Joseph's sign. Gallbladder wall: 2 mm, normal. Common bile duct: 4 mm, normal. Right kidney: Cortical medullary differentiation is maintained. Normal color flow by Doppler. No calculus or focal parenchymal abnormality identified. No hydronephrosis. Right kidney length: 11.3 cm Left kidney: Cortical medullary differentiation is maintained. Normal color flow by Doppler. No calculus or focal parenchymal abnormality identified. No hydronephrosis. Left kidney length: 11.1 cm The spleen has camilla l echogenicity. Splenic length: 10.1 cm, normal. No free intraperiton eal fluid identified. IMPRESSION: 1. No acute findings . No evidence of cholecystitis. 2. Hepatomegaly with hepatic steatosis. This document has be en electronically signed by: Ronn Lal MD on 07/09/2024 13:50:24 Dictated By: Ronn Lal MD Signed By: <Electronically signed by Ronn Lal MD in OV> 07/09/24 1350 DD/ 1350 TD/TT: 07/09/24 1350 Garden Worker: SLIDE REVIEW Reviewed date:07/12/2024 12:39:59 PM Interpretation: Performing Lab:[facility], [address] [place] [phone] Notes/Report: SLIDE REVIEW VERIFIED Lactate Dehydrogenase Reviewed date:07/16/2024 04:59:11 PM Interpretation: Performing Lab:[facility], [address] [place] [phone] Notes/Report: Lactate Dehydrogenase 204 118-273 U/L Metz/Lambda Lt Ch,Free w ra t Reviewed date:07/19/2024 12:05:02 PM Interpretation: Performing Lab:[facility], [address] [place] [phone] Notes/Report: Metz Light Chain, Free Serum 16.5 3.3-19.4 mg/L Lambda Light Chain, Free Serum 10.3 5.7-26.3 mg/L Metz/Lambda Lt Ch Free Ratio 1.60 0.26-1.65 Free kappa/lambda ratio in serum of normal individuals is 0.26-1.65. Excess production of free kappa or lambda chains can alter this ratio. Monoclonal free light chains are found in serum of patients with multiple myeloma, Waldenstrom's macroglobulinemia, mu-heavy chain disease, primary amyloidosis, light chain deposition disease, monoclonal gammopathy of undetermined significance, and lymphoproliferative disorders. Measurement of free light chain concentration in serum is useful for diagnosis, prognosis, monitoring disease activity and following response to therapy of these disorders. THIS TEST WAS PERFORMED AT: [facility] [address] [place] [phone] BJORN MCCORMICK MD datapine Other Ref Reviewed date:07/28/2024 06:59:10 PM Interpretation: Performing Lab:[facility], [address] [place] [phone] Notes/Report: NeoType CLL profile+IgVH; CLL FISH panel datapine Other Ref See Note See re port from [employer] in the EMR. 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 02/01/2022 Not-Taki ng metFORMIN HCl ER 750 MG TAKE [...] Problem Status W/U Status Risk Notes Problem 64576418 Lymphocytosis (D72.820) Active confirmed Problem 140275533 Exercise induced bronchospasm (J45.990) Active confirmed Problem 954634293 Erectile dysfunction due to diseases classified elsewhere (N52.1) Active confirmed Problem 1139230 Arthritis (M19.90) Active confirmed Problem 454826961 Lumbar disc dise ase (M51.9) Active confirmed Problem 83762876 Spermatocele (N43.40) Active confirmed Problem Type 2 diabetes mellitus without complication (E11.9) Active confirmed Problem 90783643 Acute idiopathic gout of right ankle (M10.071) Active confirmed Problem 46536619 Intervertebral lumbar disc disorder with myelopathy, 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) Active confirmed Problem 663448693 Pseudogout of le ft ankle (M11.272) Active confirmed Vital Signs Blood pressure diastolic 80 mm Hg 05/10/2024 Height 73 in 05/10/2024 Blood pressure systolic 122 mm Hg 05/10/2024 Weight 189 lbs 05/10/2024 BMI 24.93 kg/m2 05/10/2024 Encounters Encounter Location Date Provider Diagnosis Carmelo Phelps MD [address] [place] [id number] 09/12/2023 Carmelo Phelps Elevated LFTs R79.89 Carmelo Phelps MD [address] [place] [id number] 11/24/2023 Carmelo Phelps Encounter for immunization Z23 Carmelo Phelps MD [address] [place] [id number] 04/19/2024 Carmelo Phelps Blood tests for routine general physical examination Z00.00 ; Lymphocytosis D72.820 and Type 2 diabetes mellitus without complication E11.9 Carmelo Phelps MD [address] [place] [id number] 07/12/2024 Carmelo Phelps Elevated liver enzymes R74.8 and Lymphocytosis D72.820 Carmelo Phelps MD [address] [place] [id number] 10/02/2023 Carmelo Phelps Type 2 diabetes mellitus without complication E11.9 Carmelo Phelps MD [address] [place] [id number] 01/05/2024 Carmelo Phelps Type 2 diabetes mellitus without complication E11.9 Carmelo Phelps MD [address] [place] [id number] 04/26/2024 Carmelo Phelps Lymphocytosis D72.82 0 ; Annual physical exam Z00.00 ; Elevated LFTs R79.89 ; Type 2 diabetes mellitus without complication E11.9 ; Erectile dysfunction due to diseases classified elsewhere N52.1 ; Colon cancer screening Z12.11 and Depression screening Z13.31 Carmelo Phelps MD [address] [place] [id number] 05/10/2024 Carmelo Phelps Lymphocytosis D72.82 0 ; Type 2 diabetes mellitus without complication E11.9 and Elevated LFTs R79.89 Carmelo Phelps MD [address] [place] [id number] 05/04/2024 Carmelo Phelps MD [address] [place] [id number] 11/24/2023 Carmelo Phelps MD [address] [place] [id number] 01/21/2024 Carmelo Phelps MD [address] [place] [id number] 01/21/2024 Carmelo Phelps MD [address] [place] [id number] 01/24/2024 Carmelo Phelps MD [address] [place] [id number] 01/28/2024 Carmelo Phelps MD [address] [place] [id number] 02/18/2024 Carmelo Phelps MD [address] [place] [id number] 02/20/2024 Carmelo Phelps MD [address] [place] [address] [id number] 04/08/2024 Carmelo Phelps MD [address] [place] [address] [id number] 04/11/2024 Carmelo Phelps MD [address] [place] [id number] 05/20/2024 Carmelo Phelps MD [address] [place] [id number] 06/02/2024 Carmelo Phelps Erectile dysfunction due to diseases classified elsewhere N52.1 Carmelo Phelps MD [address] [place] [id number] 06/02/2024 Carmelo Phelps MD [address] [place] [id number] 06/02/2024 Carmelo Phelps MD [address] [place] [id number] 06/04/2024 Carmelo Phelps MD [address] [place] [address] [id number] 06/30/2024 Carmelo Phelps MD [address] [place] [id number] 06/30/2024 Carmelo Phelps MD [address] [place] [id number] 07/07/2024 Carmelo Phelps Assessments Encounter Date Diagnosis (ICD Code) Assessment Notes Treatment Notes Treatment Clinical Notes Section Notes 09/12/2023 Elevated LFTs (ICD-10 - R79.89) 11/24/2023 Encounter for immunization (ICD-10 - Z23) 04/19/2024 Blood tests for routine general physical examination (ICD-10 - Z00.00) 07/12/2024 Elevated liver enzymes (ICD-10 - R74.8) 10/02/2023 Type 2 diabetes mellitus without complication [...] - N52.1) 04/19/2024 Lymphocytosis (ICD-10 - D72.820) 07/12/2024 Lymphocytosis (ICD-10 - D72.820) 04/26/2024 Elevated LFTs [...] COMPLETE ABDOMEN WITH LIVER ELASTOGRA PHY 05/16/2022 Next Appt Details Provider Name:Carmelo Dominguez ier, 04/26/2025 07:00:00 AM, [address] [place] [address], [address], [place], [phone], Provider Name:Carmelo Dominguez ier, 05/03/2025 09:30:00 AM, [address] [place] [address], [address], [place], [place], [id number], Insurance Providers Payer Name Payer Address Payer Phone Subscriber Number Group Number Insured Name Patient Relationship to Insured Coverage Start Date Coverage End Date [employer] [address] [place], [place] [id number] [phone] [id number] Salo Baires Self - patient is the insured Medical (General) History Medical History History ICD Code Colonoscopy 11/10/14 - repeat 10 yrs w/Dr Mauro Mercado Surgical History Surgery Date(Month/Year) lumbar laminectomy 2003
[2024-11-10 16:23] LABS: INTERNATIONAL NORM RATIO 0.9 (0.9-1.1); Prothrombin Time 10.6 SEC (10.9-12.4)
[2024-11-10 16:53] LABS: Alanine Aminotransferase 98 U/L (0-40); Albumin Level 4.8 g/dL (3.5-5.0); Alkaline Phosphatase 47 U/L (39-117); Aspartate Amino Transferase 76 U/L (5-37); Total Protein 7.4 g/dL (6.5-8.0)
[2024-11-17 00:43] LABS: FIB-ALT 69 U/L (9-46); FIB-Alpha-2-Macroglobulin 240 mg/dL (106-279); FIB-Apolipoprotein A1 172 mg/dL (94-176); FIB-GGT 33 U/L (3-70); FIB-Haptoglobin 157 mg/dL (43-212); FIB-Total Bilirubin 0.7 mg/dL (0.2-1.2); Liver Fibrosis Score 0.33; Liver Fibrosis Stage F1-F2; Nec Inflam Act Grade A1-A2; Nec Inflam Act Score 0.42
--- NOTE | 2025-02-01 13:26 | HO.ANESPROP2 ---
Documented by User: Merary Ward NP 02/01/25 13:27 HPI - Anesthesia Eval Consult details Narrative: 59yo M for Colonoscopy Anesthesia Pre-Procedure Meds Is the patient on any of the following meds?: GLP1/DPP4 PMFSH Active Problems Active Problems: All Active Problems Lymphocytosis (Chronic) Past Medical History Medical History CLL (chronic lymphocytic leukemia) Diabetes type 2, controlled Family History Family History Father HTN (hypertension) Mother Lymphoma Maternal Grandfather Stroke Surgical History Surgical History (Updated 02/02/25 @ 14:17 by Harleen Steven RN) H/O colonoscopy H/O discectomy H/O hammer toe correction Social History Social History Household Members: Significant Other Patient Tobacco Use Status: Never used Tobacco Use of substances other than those prescribed or required for medical reasons: No Advance Directives: No Advance Directives Information Provided: Yes service: No Current occupational status: retired Gender identity: Male Meds Allergies Allergy/AdvReac Type Severity Reaction Status Date / Time seasonal Allergy Unknown Unknown Uncoded 12/28/24 11:35 Home Medications ?Medication ?Instructions ?Recorded ?Confirmed ?Last Taken ?Type metformin 750 mg tablet,extended 750 mg PO QPM 06/04/24 02/02/25 Unknown History release 24 hr sitagliptin phosphate 50 mg tablet 50 mg PO DAILY 06/04/24 02/02/25 Unknown History (Januvia) Exam Pertinent Lab Results Pertinent Lab Results: Laboratory Tests 11/10/24 15:51 PT 10.6 L INR 0.9 Total Bilirubin 0.9 Direct Bilirubin 0.3 AST 76 H ALT 98 H Alkaline Phosphatase 47 Liver GGT 33 Liver Total Bilirubin 0.7 Liver Apolipoprotein A1 172 Liver Fibrosis ALT 69 H Liver q-3-Bmmmknhhxofjy 240 Liver Haptoglobin 157 Liver Fibrosis Score 0.33 Liver Fibrosis Interp SEE NOTE Liver Fibrosis Comment SEE NOTE Liver Fibrosis Stage F1-F2 Necroinflammator Score 0.42 Necroinflam Score Cmmt SEE NOTE Necroinflammator Grade A1-A2 Total Protein 7.4 Albumin 4.8 Alpha Fetoprotein 3.1 Ref Lab Specimen ID [id number] Laboratory Tests 12/28/24 12:14 WBC 14.4 H Hgb 14.3 Hct 42.2 Plt Count 199 Sodium 140 Potassium 4.3 Chloride 106 Carbon Dioxide 27 BUN 15 Creatinine 0.79 Assessment and Plan Assessment Anesthesia Assessment: Chart Reviewed Documented by User: Will Izquierdo MD 02/04/25 11:18 [facility] Past Medical History Medical History CLL (chronic lymphocytic leukemia) Diabetes type 2, controlled Functional capacity: independent ambulation Family History Family History Father HTN (hypertension) Mother Lymphoma Maternal Grandfather Stroke Family history of problems with anesthesia: No Surgical History Surgical History (Updated 02/02/25 @ 14:17 by Harleen Steven RN) H/O colonoscopy H/O discectomy H/O hammer toe correction History of Problems with Anesthesia: No Social History Social History Household Members: Significant Other Patient Tobacco Use Status: Never used Tobacco Use of substances other than those prescribed or required for medical reasons: No Advance Directives: No Advance Directives Information Provided: Yes service: No Current occupational status: retired Gender identity: Male Meds Allergies Allergy/AdvReac Type Severity Reaction Status Date / Time seasonal Allergy Unknown Unknown Uncoded 12/28/24 11:35 Home Medications ?Medication ?Instructions ?Recorded ?Confirmed ?Last Taken ?Type metformin 750 mg tablet,extended 750 mg PO QPM 06/04/24 02/02/25 Unknown History release 24 hr sitagliptin phosphate 50 mg tablet 50 mg PO DAILY 06/04/24 02/02/25 Unknown History (Margie) Exam Exam Date and Time: 02/04/25 Airway TM Dist: >3cm Neck ROM: Full Loose/Missing/Broken Teeth: No Heart: normal Lungs: noral Other: normal Assessment and Plan Final Anesthetic Review Family History of Problems with Anesthesia: No History of Problems with Anesthesia: No NPO: Yes ASA Class: II Final Preanesthetic Review: No Changes in Pt Med Stat, Meds/Allgs Chart Reviewed, Consent Obtained/Reviewed and Anes Risks/Benef Reviewed Patient Risk: Low Procedure Risk: Low Anesthetic Plan Anesthetic Plan: MAC: Disposition: Standard PACU
[2025-02-02 14:15] VITALS: BMI 24.0
[2025-02-04 10:12] VITALS: BMI 25.1
[2025-02-04 10:34] VITALS: BP 133/72; PULSE 54; RESP 15; TEMP 36.4; O2SAT 97
[2025-02-04] MEDS: Lactated Ringers 1,000 ML 100 ML IVCONT (10:35)
[2025-02-04 10:36] LABS: Glucose, Whole Blood 194 mg/dL (60-115)
[2025-02-04 12:33] VITALS: BP 110/59; PULSE 70; RESP 16; TEMP 36.2; O2SAT 100
--- NOTE | 2025-02-04 12:34 | P.BOP_ITS ---
Brief Operative Note Date of Service: 02/04/25 Pre-op diagnosis: Screening Post-op diagnosis: other (Diverticulosis) Procedure: Colonoscopy to the cecum Surgeon: Aristeo Mercado MD Anesthesia: MAC Was an Director Of Institutional Research used for this Procedure?: No Estimated blood loss (mL): 0 Pathology: none sent Condition: stable Disposition: PACU
[2025-02-04 12:48] VITALS: BP 121/81; PULSE 52; RESP 15; TEMP 36.6; O2SAT 97
--- NOTE | 2025-02-04 13:28 | OP_ITS ---
DATE OF SERVICE: 02/04/2025 SURGEON: Aristeo Mercado MD INDICATIONS: The patient presents for evaluation of colorectal cancer screening. Full consent has been obtained from him for this, including risks of bleeding and perforation. PREOPERATIVE DIAGNOSIS: Colorectal cancer screening. POSTOPERATIVE DIAGNOSIS: PROCEDURE PERFORMED: Colonoscopy to the cecum. ESTIMATED BLOOD LOSS: COMPLICATIONS: ANESTHESIA: Medication used, monitored anesthesia care. ASSISTANTS: SPECIMENS: POSTOPERATIVE DIAGNOSES: Colorectal cancer screening, diverticulosis, internal hemorrhoids. DESCRIPTION OF PROCEDURE: The patient was placed in the left lateral decubitus position. The digital rectal exam revealed no abnormalities. The Olympus video pediatric colonoscope was entered into the rectum and advanced to the cecum with the assistance of abdominal wall pressure. Once in the cecum, I did identify normal-appearing cecal pouch with appendiceal orifice and a normal-appearing ileocecal valve. The entire cecum and ileocecal valve appeared normal. There was transillumination of light deep in the right lower quadrant. The scope was slowly withdrawn assessing all mucosal surfaces carefully. Preparation was excellent. I did not visualize any sign of polyps, colitis, or angiodysplasia. There was a mild amount of sigmoid diverticulosis. There were also a few diverticula noted in the ascending colon. In the rectum, scope was retroflexed visualizing some internal hemorrhoids, but no other pathology. The rectal mucosa appeared normal. Scope was straightened and withdrawn from the patient. He tolerated the procedure well and was returned to the recovery area in stable condition. IMPRESSION: 1. Diverticulosis. 2. Internal hemorrhoids. PLAN: Given today's negative colonoscopy and negative family history, I would recommend a repeat colonoscopy in 10 years for further screening. He was advised to see me in 1 year for followup of his liver disease in relation to the fatty liver and alcohol use. He was advised to remain abstinent from alcohol as well. MD BENITEZ Shah/JUAN / [id number]
== END 2025-02-04 13:10 | disposition home or self-care (01) ==
PROVIDERS: PCP Internal Medicine; Visit Provider Internal Medicine
PROC: 0DJD8ZZ Inspection of Lower Intestinal Tract, Via Natural or Artificial Opening Endoscopic (ICD-10-PCS; CPT 45378; principal; 2025-02-04 11:10)
DX: Z12.11 Encounter for screening for malignant neoplasm of colon (principal); K70.9 Alcoholic liver disease, unspecified; K76.0 Fatty (change of) liver, not elsewhere classified; R79.89 Other specified abnormal findings of blood chemistry; K57.30 Diverticulosis of large intestine without perforation or abscess without bleeding; K64.8 Other hemorrhoids
CPT/HCPCS: 45378; 36415; 80076; 81596; 82105; 82947; 85610; J2003; J2704; J3010